=== PATIENT | male | born 1990 ===

== ENCOUNTER 2025-10-27 08:47 | Emergency (ER) | payer BC, SELFPAY ==
--- NOTE | ~2025-10-27 | XR_ITS ---
EXAMINATION: XR CHEST CLINICAL INFORMATION: left sided chest pain COMPARISON: None available. TECHNIQUE: 2 views of the chest were obtained. FINDINGS: No focal lung consolidation or evidence of pulmonary edema. No pneumothorax or pleural effusion. Cardiomediastinal silhouette is within normal limits. Surgical screws project over the right glenoid. XR/XR chest 2V IMPRESSION: No acute cardiopulmonary process. Electronically signed by: Felisa Ha MD 10/27/2025 01:03 PM ARSLAN
[2025-10-27 08:58] VITALS: BP 119/83; PULSE 74; RESP 20; TEMP 36.4; O2SAT 99; BMI 22.5
[2025-10-27 11:35] VITALS: BP 143/93; PULSE 85; RESP 20; TEMP 36.9; O2SAT 98
--- NOTE | 2025-10-27 11:35 | ECG_ITS ---
Test Reason : left upper adominal pain Blood Pressure : */* mmHG Vent. Rate : 67 BPM Atrial Rate : 67 BPM P-R Int : 164 ms QRS Dur : 88 ms QT Int : 376 ms P-R-T Axes : 33 48 51 degrees QTcB Int : 397 ms Normal sinus rhythm Normal ECG No previous ECGs available Referred By: Shayan Santiago Electronically Signed By: PRISCILLA PATE
--- NOTE | 2025-10-27 11:38 | PC.NURSE ---
pt is refusing the motrin at this time
--- NOTE | 2025-10-27 11:38 | ED.GENADULT ---
[facility] - General Adult General Chief complaint: Abdominal Pain Stated complaint: upper l sided abd pain lip numbness Time Seen by Provider: 10/27/25 13:25 Source: patient Mode of arrival: ambulatory Limitations: no limitations History of Present Illness ED Provider: [facility] narrative: 35-year-old presenting with right-sided ribcage pain, reported nausea, increased gas and had episodes of vomiting, PCP started on amoxicillin as he has had respiratory infection, Related Data Previous Rx's ?Medication ?Instructions ?Recorded lidocaine 4 % topical patch 1 patch topical DAILY PRN pain 7 10/27/25 (Aspercreme (lidocaine)) days #10 ea naproxen 500 mg tablet 500 mg PO BID 5 days #10 tabs 10/27/25 Allergies Allergy/AdvReac Type Severity Reaction Status Date / Time methocarbamol (From Robaxin) Allergy Anaphylaxis Verified 10/27/25 09:01 Review of Systems Constitutional: Constitutional: Reports as per [facility] Social History Social History Advance Directives: No Advance Directives Information Provided: Yes Do you have a plan to hurt others: No Plan Physical Exam ED Exam Exam: ?General: ??Age-appropriate somewhat anxious affect Speaking full sentences ?CV: S1-S2 ?Resp: ?No wheezing rales rhonchi no stridor moving air well, reported significant pinpoint tenderness along left-sided ribcage around ribs 7 and 8 Abd: ?Bowel sounds are present, no tenderness no rebound no rigidity MSK: FROM, strength 5/5 all extremities Skin: Warm, dry, intact, no rashes ?Neuro: ?Alert and oriented x3, moving upper and lower extremities symmetrically, no obvious facial asymmetry noted, cranial nerves 2-12 intact Vital Signs: Vital Signs - 24 hr 10/27/25 11:35 10/27/25 13:13 10/27/25 14:38 Temperature 98.5 F 97.8 F 97.8 F Pulse Rate 85 78 78 Respiratory Rate 20 18 Blood Pressure 143/93 H 154/106 H 154/106 H Pulse Oximetry 98 100 100 Oxygen Delivery Method Room Air Room Air Room Air BMI result Body Mass Index 22.5 Course Course Course Narrative: RME: 35-year-old male presents to ED for left-sided abdominal pain, chest pain, and diarrhea since yesterday. Patient presently has been on amoxicillin for respiratory symptoms. Patient states the side upper abdominal pain chest pain worse on movement. Labs EKG ordered Medications Administered Discontinued Medications Generic Name Dose Route Start Last Admin Trade Name Ama PRN Reason Stop Dose Admin Ibuprofen 800 mg 10/27/25 11:36 10/27/25 13:57 Ibuprofen 800 Mg Tablet PO 10/27/25 11:37 Not Given ONCE ONE Ketorolac Tromethamine 15 mg 10/27/25 13:41 10/27/25 13:56 Ketorolac Tromethamine 15 Mg/Ml Vial IM 10/27/25 13:42 15 mg ONCE ONE Administration Lidocaine 1 patch 10/27/25 13:41 10/27/25 13:56 Lidocaine 4 % Patch Adh..Patch TRANSDERMA 10/27/25 13:42 1 patch ONCE ONE Administration Protocol Medical Decision Making Medical Decision Making MDM Narrative: 2:33 PM 10/27/2025 (Dr. Oneil Hinkle): Well-appearing, endorsing pain over the left-sided ribcage directly pinpoint over the bone, a chest x-ray without fractures there was no evidence for pneumothorax or consolidations, patient is obviously having some reaction to antibiotics, and I recommended he discontinue antibiotics chest x-ray without pneumonia, viral swab negative, and blood work reassuring See my discharge instructions, PERC negative Nothing on exam to suspect appendicitis did not feel further imaging such as CT abdomen and pelvis is indicated Differential Diagnosis Differential Diagnoses: The differential diagnosis associated with the presentation includes (Dehydration, medication reaction, antibiotics, PE, pneumonia, rib fracture) Admission/Observation Consideration of admission/observation: Escalation of care including admission/observation considered Lab Data 10/27/25 12:13 10/27/25 12:13 Labs: Lab Results 10/27/25 Range/Units 12:13 WBC 5.9 (4.8-10.8) X10*3/uL RBC 4.37 L (4.60-5.80) X10*6/uL Hgb 13.3 L (14.0-18.0) g/dl Hct 39.3 L (42.0-52.0) % MCV 89.9 (80.0-98.0) fL MCH 30.4 (27.0-33.0) pg MCHC 33.8 (31.0-36.0) g/dl RDW 12.2 (11.0-16.0) % Plt Count 293 (160-400) X10*3/uL MPV 9.5 (9.4-12.4) fL Immature Gran % (Auto) 0.3 (0.0-0.4) % Neut % (Auto) 74.2 H (45-73) % Lymph % (Auto) 17.6 L (20-40) % [place] % (Auto) 6.4 (2-11) % Eos % (Auto) 1.0 (0-4) % Baso % (Auto) 0.5 (0-2) % Lymph # (Auto) 1.0 L (1.2-4.9) X10*3/uL [place] # (Auto) 0.4 (0.1-1.2) X10*3/uL Eos # (Auto) 0.1 (0.0-0.4) X10*3/uL Baso # (Auto) 0.0 (0.0-0.2) X10*3/uL Abs Immat Gran (auto) 0.02 (0.00-0.03) X10*3/uL Absolute Neuts (auto) 4.4 (2.0-8.3) x10*3/uL Absolute Nucleated RBC 0.000 (0.0-0.012) X10*3/uL Nucleated RBC % (auto) 0.0 (0.0-0.2) /100WBC PT 12.0 (11.2-13.5) SEC INR 1.0 (0.9-1.1) APTT 29.1 (26.7-34.1) SEC Sodium 139 (135-145) mmol/L Potassium 3.9 (3.3-5.1) mmol/L Chloride 107 (96-108) mmol/L Carbon Dioxide 27 (22-29) mmol/L Anion Gap 9 L (12-20) BUN 14 (9-16) mg/dL Creatinine 0.79 (0.5-1.4) mg/dL Estim Creat Clear Calc 99.8 Estimated GFR > 60 Random Glucose 94 (60-115) mg/dL Calcium 9.8 (8.4-10.2) mg/dL Total Bilirubin 0.4 (0.0-1.0) mg/dL AST 30 (5-37) U/L ALT 37 (0-40) U/L Alkaline Phosphatase 71 (39-117) U/L Troponin I High Sens < 2.7 (<3.5-35.0) ng/L NT-Pro-B Natriuret Pep < 15.8 (<300) pg/mL Total Protein 7.7 (6.5-8.0) g/dL Albumin 4.9 (3.5-5.0) g/dL Lipase 20 (8-78) U/L Urine Color Yellow Urine Appearance Clear Urine pH 7.0 (5.0-9.0) Ur Specific [place] 1.020 (1.005-1.025) Urine Protein Negative (Neg-Trace) mg/dL Urine Glucose (UA) Negative (Negative) mg/dL Urine Ketones Negative (Negative) mg/dL Urine Blood Negative (Negative) Urine Nitrite Negative (Negative) Ur Leukocyte Esterase Negative (Negative) Influenza Type A (PCR) NEGATIVE (Negative) Influenza Type B (PCR) NEGATIVE (Negative) RSV RNA Qual (PCR) NEGATIVE (Negative) SARS-CoV-2 RNA (RT-PCR) NEGATIVE (Negative) S. pyogenes GrpA TITO Negative (Negative) Tests considered The following testing was considered but not selected: CT abdomen and pelvis with IV contrast Discharge Plan Discharge Clinical Impression: Left-sided chest wall pain, Adverse reaction to antibiotic Patient Disposition: Home, Self-Care Additional Instructions: Your blood work is reassuring Chest x-ray without infection Viral swabs that we perform here negative Pain over the left-sided ribcage is either inter rib spasm or maybe even a rib fracture if you are coughing or vomiting that can happen, treatment is with ibuprofen or Naprosyn which I am prescribing, take it with food and also recommend that you discontinue amoxicillin as you are having significant reactions to it Your chest x-ray did not show an infection in your blood work did not reveal underlying infectious etiology follow up with the PCP otherwise any other issues concerns come back to the ER Prescriptions: New lidocaine [Aspercreme (lidocaine)] 4 % adhesive patch,medicated 1 patch topical DAILY PRN (Reason: pain) 7 Days Qty: 10 0RF naproxen 500 mg tablet 500 mg PO BID 5 Days Qty: 10 0RF Stand Alone Forms: Work/School Release Interventions: ED Discharge Assessment Last Done: 10/27/25 14:38 Discharge Date/Time: 10/27/25 14:38 Print Language: [place] Citizen
[2025-10-27 12:21] LABS: MANUAL DIFF FLAG NO
[2025-10-27 12:25] LABS: Appearance Urine Clear; Glucose Urine UA Negative (Negative); Hematocrit 39.3 % (42.0-52.0); Hemoglobin 13.3 g/dl (14.0-18.0); Imm Gran Abs Auto 0.02 X10*3/uL (0.00-0.03); Imm Gran Pct Auto 0.3 % (0.0-0.4); Lymphocytes Absolute Auto 1.0 X10*3/uL (1.2-4.9); Mean Corpuscular HGB Conc 33.8 g/dl (31.0-36.0); Mean Corpuscular Hemoglobin 30.4 pg (27.0-33.0); Mean Corpuscular Volume 89.9 fL (80.0-98.0); NRBC Abs Auto 0.000 X10*3/uL (0.0-0.012); NRBC Pct Auto 0.0 /100WBC (0.0-0.2); PH 7.0 (5.0-9.0); Platelet Count 293 X10*3/uL (160-400); Red Blood Count 4.37 X10*6/uL (4.60-5.80); Specific Gravity - Urine 1.020 (1.005-1.025); White Blood Count 5.9 X10*3/uL (4.8-10.8)
[2025-10-27 12:32] LABS: INTERNATIONAL NORM RATIO 1.0 (0.9-1.1); Prothrombin Time 12.0 SEC (11.2-13.5)
[2025-10-27 12:33] LABS: IDNOW Serial# 58CA691E
[2025-10-27 12:34] LABS: Strep A Nucleic Acid Negative (Negative)
[2025-10-27 12:35] LABS: Partial Thromboplastin Time 29.1 SEC (26.7-34.1)
[2025-10-27 12:36] LABS: Lipase 20 U/L (8-78)
[2025-10-27 12:39] LABS: Alanine Aminotransferase 37 U/L (0-40); Albumin Level 4.9 g/dL (3.5-5.0); Alkaline Phosphatase 71 U/L (39-117); Anion Gap 9 (12-20); Aspartate Amino Transferase 30 U/L (5-37); Blood Urea Nitrogen 14 mg/dL (9-16); Calcium 9.8 mg/dL (8.4-10.2); Carbon Dioxide 27 mmol/L (22-29); Chloride 107 mmol/L (96-108); Creatinine Clr Calc Pharmacy 99.8; Estimated Glomerular Filt Rate > 60; Potassium 3.9 mmol/L (3.3-5.1); Sodium 139 mmol/L (135-145); Total Protein 7.7 g/dL (6.5-8.0)
[2025-10-27 12:47] LABS: NT Pro B Type Natriuretic Pept < 15.8 pg/mL (<300); Troponin-I High Sensitivity < 2.7 ng/L (<3.5-35.0)
[2025-10-27 13:00] LABS: Resp Syncy Virus RNA Qual PCR NEGATIVE (Negative); SARS COV2 PCR INHOUSE NEGATIVE (Negative)
[2025-10-27 13:13] VITALS: BP 154/106; PULSE 78; TEMP 36.6; O2SAT 100
[2025-10-27] MEDS: Lidocaine 4 % Patch ADH..PATCH 1 PATCH TRANSDERMA (13:56)
[2025-10-27 14:38] VITALS: BP 154/106; PULSE 78; RESP 18; TEMP 36.6; O2SAT 100
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
--- OUTSIDE RECORDS SUMMARY | 2025-10-27 16:06 | XMS_ITS | Continuity of Care Document ---
Author Organization [place] - [facility] Address [address] [place] [address] Care Team Providers Care Inspector Salvage Name Role Phone SABRA MEYER Primary Care Provider MAT ERVIN Utility Sales Representative AMY LYNNE([facility]) Utility Sales Representative Assessment No assessment recorded. Plan of Treatment Reminders Order Date Submit Date Provider Last Modified By Organization Details Last Modified Time Details Appointments RECHECK 15 2025 03:30P M Vandana Padgett MD Not available Not available Not available Lab None recorded. Referral None recorded. Procedures None recorded. Surgeries None recorded. Imaging XR, shoulder, 2 or more view - rm 5 right shoulder 4v 2024 [facility], [address], [address], [place], [address], 10/26/2025 14:10:04 Medication Orders None recorded. Patient TargetsNo targets recorded. Patient Instructions Encounter Date Encounter Id Patient Instructions Last Modified By Organization Details Last Modified Time 10/15/2025 [id number] Will have Tim continue with work conditioning, which seems to [...] we have yet reached it. Will assess further at next follow-up visit in 2 months. No new xrays needed at that time. [email or web address] Not available 10/15/2025 16:20:28 Reason for Referral None Reported. Results Created Date Observation Date Name Description Value Unit Range Abnormal Flag Note LastModifiedBy Organization Detail LastModifiedTime 10/15/2010/15/2025 XR, shoul ravindra, 2 or more view http:/ [email or web address] ?Encry pted=s hAaTro YD8dLq bEUv6g %2BXZw aYqtaq 0bqfl% 2Fg9IQ a4ajBk vP9nXo QUaueC m3YtLR FvZlgJ JJ8mAn HZtai3 5u5733 AC0KlY 3qBVaW vKiQtr MwF INTERFACE [facility] [address] [facility] [address], [place], [address], 10/15/2025 14:34:15 10/15/20 25 10/15/2025 XR, shoul ravindra, 2 or more view http:/ [email or web address] ?Encry pted=s hAaTro YD8dLq bEUv6g %2BXZw aYqtaq 0bqfl% 2Fg9IQ a4ajBk vP9nXo QUaueC m3YtLR FvZlgJ JJ8mAn HZtai3 0a7609 AC0KlY 3qBVaW vKiQtr MwF INTERFACE [facility] [address] [facility] [address], [place], [address], 10/15/2025 14:34:17 Result Notes Documentation Provider Name and Address Organization Details Recorded Time Xr, Shoulder, 2 Or More View : [email or web address]? Encrypted=kaClTzrZJ8sCciU Uv6g%2RHThiRjmre0yxnv%2Fg 0BJf8qbOizB8jKuIWnllUv6Xo MDSlDonYMI5jPhCAqvd97h166 8IA4BhD9pNIhVgQdCmbLtR Not Available [facility] 10/15/2025 14:34: 16 Xr, Shoulder, 2 Or More View : [email or web address]? Encrypted=duYsOfsXI8nUspV Uv6g%6HKGzoAjpan7ytws%2Fg 1XTv6mwDcyN1oEeWQptcZf3Dt ZGXqYhpHKO4pAaKRhze22d939 3ZI9JrC4nHZdJiScPouUrL Not Available [facility] 10/15/2025 14:34: 18 Problems Name Problem SNOMED Code Status Onset Date Resolution Date Notes Provider Name and Address Organization Details Recorded Time Instability of right shoulder joint 609920906 Active 2023 James Whitfield PA-C [address], [place], [address], [facility] 4 06:51:09 Pain of right shoulder joint 8270856860340 9100 Active 2023 MORRIS PIRES [place], [place] - [facility] 4 09:54:39 Chronic pain of right upper limb 3002967821605 9108 Active 2023 James Whitfield PA-C [address], [place], [address], [facility] 4 11:12:47 Pain of left shoulder joint 2246449050201 9109 Active 2023 James Whitfield PA-C [address], [place], [address], [facility] 4 11:32:24 Pain of left shoulder region Active 2023 James Whitfield PA-C [address], [place], [address], [facility] 4 10:48:08 Neck pain 12690075 Active 2023 Mitch San MD [address], [place], [address], [facility] 5 10:59:05 Sprain of left acromioclav icular ligament 5750498064113 9103 Active 2023 James Whitfield PA-C [address], [place], [address], [facility] 4 11:19:57 Cervical spondylosis 852339922 Active 2024 Mitch San MD [address], [place], [address], [facility] 5 16:34:54 Strain of neck muscle 643709792 Active 2024 Mitch San MD [address], [place], [address], [facility] 5 16:34:56 Problem Notes None recorded. Procedures Surgical History Date Name Laterality Status Provider Name and Address Organization Details Recorded Time 5 90272 Therapeutic Exercise (1:1) completed Danuta Duran PTA [address], [place], [address], [facility] 01/06/2025 13:44:44 5 57608: Manual therapy completed MARIO [address], [place], [address], [facility] 01/06/2025 13:44:44 5 99565 Therapeutic Exercise (1:1) completed Danuta Duran PTA [address], [place], [address], [facility] 01/01/2025 07:13:25 5 91422: Manual therapy completed Danuta Duran, SURGICAL GARMENT ASSEMBLY SUPERVISOR [address], [place], [address], [facility] 01/01/2025 07:13:25 5 50402 Therapeutic Exercise (1:1) completed Danuta Duran, SURGICAL GARMENT ASSEMBLY SUPERVISOR [address], [place], [address], [facility] 12/30/2024 11:02:27 5 59627: Manual therapy completed Danuta Duran SURGICAL GARMENT ASSEMBLY SUPERVISOR [address], [place], [address], [facility] 12/30/2024 11:02:27 5 46354 Therapeutic Exercise (1:1) cancelled Danuta Duran SURGICAL GARMENT ASSEMBLY SUPERVISOR [address], [place], [address], [facility] 12/28/2024 06:41:48 5 77450: Manual therapy cancelled Dantua Duran PTA [address], [place], [address], [facility] 12/28/2024 06:41:48 5 77070 Therapeutic Exercise (1:1) cancelled Michael Thurston, PT [address], [place], [address], [facility] 12/24/2024 06:51:08 5 55143: Manual therapy cancelled Michael Thurston, PT [address], [place], [address], [facility] 12/24/2024 06:51:08 5 78358 Therapeutic Exercise (1:1) completed Michael Thurstno, PT [address], [place], [address], [facility] 12/22/2024 12:29:47 5 06469: Manual therapy completed Michael Florek, PT [address], [place], [address], [facility] 12/22/2024 12:29:56 5 89246 Therapeutic Exercise (1:1) cancelled Michael Glendyek, PT [address], [place], [address], [facility] 12/16/2024 17:30:22 5 19063: Low complexity PT Eval cancelled Michael Glendyek, PT [address], [place], [address], [facility] 12/16/2024 17:30:22 5 28168 Therapeutic Exercise (1:1) completed Michaelmor Thurston, PT [address], [place], [address], [facility] 12/02/2024 13:25:08 5 31117: Low complexity PT Eval completed Michaelmor Pikeek, PT [address], [place], [address], [facility] 12/02/2024 13:25:08 5 23166 Therapeutic Exercise (1:1) cancelled Michaelmor Thurston, PT [address], [place], [address], [facility] 12/02/2024 05:35:53 5 80991: Hot or Cold Pack cancelled Michaelmor Pikeek, PT [address], [place], [address], [facility] 12/02/2024 05:35:53 5 19500: Manual therapy cancelled Michaelmor Pikeek, PT [address], [place], [address], [facility] 12/02/2024 05:35:53 4 80597 Therapeutic Exercise (1:1) cancelled Michael Florek, PT [address], [place], [address], [facility] 09/22/2024 06:41:31 4 95429: Hot or Cold Pack cancelled Michaelmor Thurston, PT [address], [place], [address], [facility] 09/22/2024 06:41:31 4 19833: Manual therapy cancelled Michael Thurston, PT [address], [place], [address], [facility] 09/22/2024 06:41:31 4 23142 Therapeutic Exercise (1:1) cancelled Michael Thurston, PT [address], [place], [address], [facility] 09/14/2024 12:23:31 4 53802: Hot or Cold Pack cancelled Michael Thurston, PT [address], [place], [address], [facility] 09/14/2024 12:23:31 57310: Manual therapy cancelled Michael Thurston, PT [address], [place], [address], [facility] 09/14/2024 12:23:31 4 56224 Therapeutic Exercise (1:1) cancelled Danuta Roger, SURGICAL GARMENT ASSEMBLY SUPERVISOR [address], [place], [address], [facility] 09/08/2024 17:28:34 4 26010: Hot or Cold Pack cancelled Danuta Roger, SURGICAL GARMENT ASSEMBLY SUPERVISOR [address], [place], [address], [facility] 09/08/2024 17:28:34 4 36742: Manual therapy cancelled Danuta Duran, SURGICAL GARMENT ASSEMBLY SUPERVISOR [address], [place], [address], [facility] 09/08/2024 17:28:34 4 71232 Therapeutic Exercise (1:1) completed Danuta Duran, SURGICAL GARMENT ASSEMBLY SUPERVISOR [address], [place], [address], [facility] 09/01/2024 14:05:39 64492: Hot or Cold Pack completed Danuta Duran SURGICAL GARMENT ASSEMBLY SUPERVISOR [address], [place], [address], [facility] 09/01/2024 14:05:39 55634: Manual therapy completed Danuta Duran SURGICAL GARMENT ASSEMBLY SUPERVISOR [address], [place], [address], [facility] 09/01/2024 14:05:39 14863 Therapeutic Exercise (1:1) completed Danuta Duran SURGICAL GARMENT ASSEMBLY SUPERVISOR [address], [place], [address], [facility] 08/31/2024 08:08:26 80873: Hot or Cold Pack completed Danuta Duran SURGICAL GARMENT ASSEMBLY SUPERVISOR [address], [place], [address], [facility] 08/31/2024 08:08:26 79589: Manual therapy completed Danuta Duran SURGICAL GARMENT ASSEMBLY SUPERVISOR [address], [place], [address], [facility] 08/31/2024 08:08:26 87253 Therapeutic Exercise (1:1) completed Danuta Duran, SURGICAL GARMENT ASSEMBLY SUPERVISOR [address], [place], [address], [facility] 08/28/2024 07:12:27 16694: Hot or Cold Pack completed Danuta Duran, SURGICAL GARMENT ASSEMBLY SUPERVISOR [address], [place], [address], [facility] 08/28/2024 07:12:27 4 80416: Manual therapy completed Danuta Duran PTA [address], [place], [address], [facility] 08/28/2024 07:12:27 4 63125 Therapeutic Exercise (1:1) completed Danuta Duran PTA [address], [place], [address], [facility] 08/24/2024 15:15:24 4 20107: Hot or Cold Pack completed Danuta Duran PTA [address], [place], [address], [facility] 08/24/2024 15:15:24 4 05148: Manual therapy completed Danuta DuranMARIO chaudhry [address], [place], [address], [facility] 08/24/2024 15:15:24 4 16729 Therapeutic Exercise (1:1) completed Danuta DuranMARIO [address], [place], [address], [facility] 08/17/2024 06:50:55 4 23272: Hot or Cold Pack completed Danuta Duran PTA [address], [place], [address], [facility] 08/17/2024 06:50:55 4 94476: Manual therapy completed Danuta DuranMARIO [address], [place], [address], [facility] 08/17/2024 06:50:55 4 93673 Therapeutic Exercise (1:1) cancelled Danuta DuranMARIO [address], [place], [address], [facility] 08/11/2024 15:24:58 4 73735: Hot or Cold Pack cancelled Danuta Duran SURGICAL GARMENT ASSEMBLY SUPERVISOR [address], [place], [address], [facility] 08/11/2024 15:24:58 4 80810: Manual therapy cancelled Danuta Duran SURGICAL GARMENT ASSEMBLY SUPERVISOR [address], [place], [address], [facility] 08/11/2024 15:24:58 4 33080 Therapeutic Exercise (1:1) cancelled Danuta Duran SURGICAL GARMENT ASSEMBLY SUPERVISOR [address], [place], [address], [facility] 08/09/2024 10:41:48 4 85145: Hot or Cold Pack cancelled Danuta Duran, SURGICAL GARMENT ASSEMBLY SUPERVISOR [address], [place], [address], [facility] 08/09/2024 10:41:48 4 79746: Manual therapy cancelled Danuta Duran SURGICAL GARMENT ASSEMBLY SUPERVISOR [address], [place], [address], [facility] 08/09/2024 10:41:48 4 55883 Therapeutic Exercise (1:1) completed Danuta Duran PTA [address], [place], [address], [facility] 08/06/2024 16:26:53 4 73134: Hot or Cold Pack completed Danuta MARIO Duran [address], [place], [address], [facility] 08/06/2024 16:26:53 4 03424: Manual therapy completed Danuta Duran SURGICAL GARMENT ASSEMBLY SUPERVISOR [address], [place], [address], [facility] 08/06/2024 16:26:53 4 37230 Therapeutic Exercise (1:1) completed Danuta Duran SURGICAL GARMENT ASSEMBLY SUPERVISOR [address], [place], [address], [facility] 08/04/2024 14:07:25 4 04024: Hot or Cold Pack completed Danuta Gardunoer, SURGICAL GARMENT ASSEMBLY SUPERVISOR [address], [place], [address], [facility] 08/04/2024 14:07:25 4 32840: Manual therapy completed Danuta Duran, SURGICAL GARMENT ASSEMBLY SUPERVISOR [address], [place], [address], [facility] 08/04/2024 14:07:25 4 21912 Therapeutic Exercise (1:1) cancelled Danuta Duran, SURGICAL GARMENT ASSEMBLY SUPERVISOR [address], [place], [address], [facility] 07/31/2024 16:29:11 4 66267: Hot or Cold Pack cancelled Danuta Duran, SURGICAL GARMENT ASSEMBLY SUPERVISOR [address], [place], [address], [facility] 07/31/2024 16:29:11 4 91454: Manual therapy cancelled Danuta Duran, SURGICAL GARMENT ASSEMBLY SUPERVISOR [address], [place], [address], [facility] 07/31/2024 16:29:11 4 71281 Therapeutic Exercise (1:1) completed Danuta Gardunoer, SURGICAL GARMENT ASSEMBLY SUPERVISOR [address], [place], [address], [facility] 07/29/2024 12:20:26 4 51921: Hot or Cold Pack completed Danuta Duran, SURGICAL GARMENT ASSEMBLY SUPERVISOR [address], [place], [address], [facility] 07/29/2024 12:20:26 4 99308: Manual therapy completed Danuta Duran, SURGICAL GARMENT ASSEMBLY SUPERVISOR [address], [place], [address], [facility] 07/29/2024 12:20:26 4 92274 Therapeutic Exercise (1:1) completed Danuta Duran, SURGICAL GARMENT ASSEMBLY SUPERVISOR [address], [place], [address], [facility] 07/24/2024 21:21:57 4 15508: Hot or Cold Pack completed Danuta Duran PTA [address], [place], [address], [facility] 07/24/2024 21:21:57 4 69268: Manual therapy completed Danuta Duran PTA [address], [place], [address], [facility] 07/24/2024 21:21:57 4 87355 Therapeutic Exercise (1:1) completed Danuta Duran PTA [address], [place], [address], [facility] 07/21/2024 15:20:38 4 36495: Hot or Cold Pack completed Danuta Duran PTA [address], [place], [address], [facility] 07/21/2024 15:20:38 4 00585: Manual therapy completed Danuta Duran PTA [address], [place], [address], [facility] 07/21/2024 15:20:38 17784 Therapeutic Exercise (1:1) completed Danuta Duran PTA [address], [place], [address], [facility] 07/18/2024 15:45:22 4 41892: Hot or Cold Pack completed Danuta Duran PTA [address], [place], [address], [facility] 07/18/2024 15:45:22 4 70043: Manual therapy completed Danuta Duran PTA [address], [place], [address], [facility] 07/18/2024 15:45:22 4 05143 Therapeutic Exercise (1:1) completed Danuta Duran, SURGICAL GARMENT ASSEMBLY SUPERVISOR [address], [place], [address], [facility] 07/13/2024 15:17:27 4 94109: Hot or Cold Pack completed Danuta Duran, SURGICAL GARMENT ASSEMBLY SUPERVISOR [address], [place], [address], [facility] 07/13/2024 15:17:27 4 65133: Manual therapy completed Danuta Duran, SURGICAL GARMENT ASSEMBLY SUPERVISOR [address], [place], [address], [facility] 07/13/2024 15:17:27 4 62863 Therapeutic Exercise (1:1) cancelled Michael Thurston, PT [address], [place], [address], [facility] 07/16/2024 06:56:14 4 03353: Hot or Cold Pack cancelled Michael Thurston, PT [address], [place], [address], [facility] 07/16/2024 06:56:14 4 97709: Manual therapy cancelled Michael Thurston, PT [address], [place], [address], [facility] 07/16/2024 06:56:14 4 94008 Therapeutic Exercise (1:1) completed Danuta Duran, SURGICAL GARMENT ASSEMBLY SUPERVISOR [address], [place], [address], [facility] 07/08/2024 12:48:52 4 06175: Hot or Cold Pack completed Danuta Duran, SURGICAL GARMENT ASSEMBLY SUPERVISOR [address], [place], [address], [facility] 07/07/2024 16:05:32 4 50229: Manual therapy completed Danuta Duran, SURGICAL GARMENT ASSEMBLY SUPERVISOR [address], [place], [address], [facility] 07/07/2024 16:05:32 4 59579 Therapeutic Exercise (1:1) completed Danuta Duran PTA [address], [place], [address], [facility] 07/03/2024 12:00:20 4 26944: Hot or Cold Pack completed Danuta Duran SURGICAL GARMENT ASSEMBLY SUPERVISOR [address], [place], [address], [facility] 07/03/2024 12:00:20 4 89444: Manual therapy completed Danuta Duran PTA [address], [place], [address], [facility] 07/03/2024 12:00:20 4 27179 Therapeutic Exercise (1:1) completed Danuta Duran PTA [address], [place], [address], [facility] 06/30/2024 17:33:45 4 53859: Hot or Cold Pack completed Danuta Duran PTA [address], [place], [address], [facility] 06/30/2024 17:33:45 4 19725: Manual therapy completed Danuta Duran PTA [address], [place], [address], [facility] 06/30/2024 17:33:45 4 87020 Therapeutic Exercise (1:1) completed Danuta Duran SURGICAL GARMENT ASSEMBLY SUPERVISOR [address], [place], [address], [facility] 06/28/2024 18:37:48 4 83798: Hot or Cold Pack completed Danuta Duran SURGICAL GARMENT ASSEMBLY SUPERVISOR [address], [place], [address], [facility] 06/28/2024 18:37:48 4 62056: Manual therapy completed Danuta Duran PTA [address], [place], [address], [facility] 06/28/2024 18:37:48 4 42899 Therapeutic Exercise (1:1) completed Danuta Duran PTA [address], [place], [address], [facility] 06/24/2024 14:43:05 4 95001: Hot or Cold Pack completed Danuta Duran PTA [address], [place], [address], [facility] 06/24/2024 14:43:05 4 57940: Manual therapy completed Danuta Duran PTA [address], [place], [address], [facility] 06/24/2024 14:43:05 4 24451 Therapeutic Exercise (1:1) completed Michael Thurston PT [address], [place], [address], [facility] 06/23/2024 05:24:29 4 22067: Hot or Cold Pack completed Michael Thurston PT [address], [place], [address], [facility] 06/23/2024 05:22:26 4 71763: Manual therapy completed Michael Thurston PT [address], [place], [address], [facility] 06/23/2024 05:24:26 4 03298 Therapeutic Exercise (1:1) completed Danuta Duran PTA [address], [place], [address], [facility] 06/17/2024 12:59:58 4 21800: Hot or Cold Pack completed Danuta Duran, SURGICAL GARMENT ASSEMBLY SUPERVISOR [address], [place], [address], [facility] 06/17/2024 12:59:58 4 25704: Manual therapy completed Danuta Duran, SURGICAL GARMENT ASSEMBLY SUPERVISOR [address], [place], [address], [facility] 06/17/2024 12:59:58 4 86491 Therapeutic Exercise (1:1) completed Danuta Duran, SURGICAL GARMENT ASSEMBLY SUPERVISOR [address], [place], [address], [facility] 06/15/2024 15:18:55 4 42827: Hot or Cold Pack completed Danuta Duran, SURGICAL GARMENT ASSEMBLY SUPERVISOR [address], [place], [address], [facility] 06/15/2024 15:18:55 4 01578: Manual therapy completed Danuta Duran, SURGICAL GARMENT ASSEMBLY SUPERVISOR [address], [place], [address], [facility] 06/15/2024 15:18:55 4 03316 Therapeutic Exercise (1:1) completed Michael Thurston, PT [address], [place], [address], [facility] 06/11/2024 08:35:04 4 46153: Hot or Cold Pack completed Michael Thurston, PT [address], [place], [address], [facility] 06/11/2024 08:35:04 4 56171: Manual therapy completed Michael Thurston, PT [address], [place], [address], [facility] [facility] 06/11/2024 08:35:04 4 17103 Therapeutic Exercise (1:1) completed Michael Thurston, PT [address], [place], [address], [facility] 06/08/2024 06:41:08 4 99220: Hot or Cold Pack completed Michael Glendyek, PT [address], [place], [address], [facility] 06/08/2024 06:41:08 4 83977: Manual therapy completed Michaelmor Pikeek, PT [address], [place], [address], [facility] 06/08/2024 06:41:08 4 24410 Therapeutic Exercise (1:1) cancelled Michael Glendyek, PT [address], [place], [address], [facility] 06/03/2024 07:05:05 4 36241: Hot or Cold Pack cancelled Michael Glendyek, PT [address], [place], [address], [facility] 06/03/2024 07:05:05 4 94481: Manual therapy cancelled Michaelmor Pikeek, PT [address], [place], [address], [facility] 06/03/2024 07:05:05 4 35572 Therapeutic Exercise (1:1) completed Michaelmor Thurston, PT [address], [place], [address], [facility] 06/01/2024 08:17:00 4 71272: Hot or Cold Pack completed Michael Glendyek, PT [address], [place], [address], [facility] 06/01/2024 08:17:00 4 72299: Manual therapy completed Michaelmor Thurston, PT [address], [place], [address], [facility] 06/02/2024 06:13:36 4 72204 Therapeutic Exercise (1:1) completed Danuta Duran SURGICAL GARMENT ASSEMBLY SUPERVISOR [address], [place], [address], [facility] 05/26/2024 13:25:19 4 11662: Hot or Cold Pack completed Danuta Duran SURGICAL GARMENT ASSEMBLY SUPERVISOR [address], [place], [address], [facility] 05/26/2024 13:25:13 4 64897: Manual therapy completed Danuta Duran SURGICAL GARMENT ASSEMBLY SUPERVISOR [address], [place], [address], [facility] 05/26/2024 13:25:21 4 77743 Therapeutic Exercise (1:1) completed Michael Thurston, PT [address], [place], [address], [facility] 05/15/2024 14:11:41 4 20344: Low complexity PT Eval completed Michael Thurston, PT [address], [place], [address], [facility] 05/15/2024 14:11:47 4 Shoulder Surgery completed HANNAH MA [facility] 02/18/2025 08:28:24 4 14703 Therapeutic Exercise (1:1) completed LILIANA TobarT [address], [place], [address], [facility] 02/11/2024 10:54:58 4 75495: Manual therapy completed LILIANA TobarT [address], [place], [address], [facility] 02/11/2024 10:57:19 Ankle/Foot Surgery completed ROSALIA HERR [facility] 04/17/2024 13:42:05 Other completed ROSALIA HERR [facility] 04/17/2024 13:42:05 Imaging Results None recorded. Procedure Notes None recorded. Medical Equipment None Reported. Allergies Allergen ID Allergen Name Allergen Category Reaction Reaction Severity Criticality Documentation Date Start Date Code Code System Note Provider Name and Address Organization Details Recorded Time 741170 methocarb martín medicatio n Not available Not available Not available 10/15/2025 6845 RxNorm Not Available [facility] [employer] - prod 5 04:23:24 105790 morphine medicatio n Not available Not available low 10/15/2025 7052 RxNorm Not Available [facility] [employer] - prod 5 04:23:24 208055 Robaxin medicatio n Not available Not available Not available 10/15/2025 45112 5 RxNorm Not Available [facility] [employer] [facility] 5 04:24:09 852590 amoxicill in medicatio n Not available Not available Not available 10/15/20252018 723 RxNorm Dizzy , nause a, vomit Not Available [facility] [employer] - prod 5 04:24:10 974694 gabapenti n medicatio n Not available Not available Not available 10/15/20252017 09389 RxNorm Menta l insta bilit y Not Available [employer] - prod 5 04:24:10 74417 morphine sulfate medicatio n Not available Not available Not available 01/27/20242022 71066 RxNorm Not Available [facility] 4 12:33:19 Medications Name Sig Start Date [...] Available Not Available Not Available amoxicillin 875 mg-potassiu m clavulanate 125 mg tablet TAKE 1 TABLET [...] Updated DateTime 10/15/2025 157.48 cm 22.9 kg/m2 82756.05 g Esvin Grace PA - [facility] 10/15/2025 14:23:47 Social History None recorded. Functional Status None recorded. Mental Status None recorded. Family History Nothing Reported. Medical History Condition Response Allergies/Hayfever N Coronary Artery Disease N Anxiety/Depression N Breathing or lung disorders N Emphysema N Nerve Disorders N Thyroid Problems N COPD N Pacemaker N Anemia N Kidney/Bladder Problems N Vascular Disease N Heart Trouble N Heart Attack ([place]) N Gastrointestinal Disease N Cholesterol N Diabetes [...] ICD10 Code Diagnosis IMO Codes Diagnosis Note [id number] VandanaMD MCKAY [facility] [address] [place] [address] 10/15/2025 14:18:54 10/26/2025 14:10:03 Pain of right shoulder joint [id number] 5816702 M25.511 [id number] Health Concerns Section Related Observation LastModified by Organization Detai ls LastModified Time None Recorded Concern Status LastModified by Organization Details LastModified Time None Recorded Payers Encounter Date Sequence Insurance Name Policy Number Policy Robles Covered Member ID Robles Member ID Guarantor Name 10/15/2025 [employer] Tim Tavares Notes Date Note Type Note Provider Name and Address Organization Details Recorded Time 10/15/2025 text/html Surgery: Right shoulder open coracoid [...] the right shoulder ordered and obtained at [facility] today were reviewed during the visit. [...] CT of the right shoulder performed at [facility] 10/07/2024 independently reviewed by me on OrthoPACS [...] AC joints, acromion, proximal humerus. 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 [employer] [facility] speech recognition immigration investigator software was used to create portions of this document. An attempt at proofreading has been made to minimize errors. Please call for corrections. Vandana Padgett MD [address] [place] [address] [address], [place], [address], [facility] - [facility] 10/15/2025 16:20:56
--- OUTSIDE RECORDS SUMMARY | 2025-10-27 16:06 | XMS_ITS | Clinical Summary ---
Author Organization [facility] Prior to 04/24/25 Address [address] [place] [address] Care Team Providers Care Field Counsel Name Role Phone Vilma Madsen Primary Care Provider Allergies Active Allergy Reactions Criticality Noted Date Comments Amoxicillin 01/08/2019 Dizzy, nausea, vomit Gabapentin 08/25/2018 Mental instability Methocarbamol Anaphylaxis High 07/15/2018 Medications Medication Sig Dispensed Refills Start Date End Date Status omeprazole (PriLOSEC) 40 MG capsule Take 40 mg by mouth daily. 2 02/15/2019 Active Active Problems No known active problems Social History Tobacco Use Types Packs/Day Years Used Date Smoking Tobacco: Former Cigarettes Q uit: 2018 Smokeless Tobacco: Never Alcohol Use Standard Drinks/Week Comments Yes 1 (1 standard drink = 0.6 oz pur e alcohol) Sex and Gender Information Value Date Recorded Sex Assigned at Not on file Gender Identity Not on file Sexual Orientation Not on file Last Filed Vital Signs Vital Sign Reading Time Taken Comments Blood Pressure - - Pulse - - Temperature - - Respiratory Rate - - Oxygen Saturation - - Inhaled Oxygen Concentration - - Weight 47.2 kg (104 lb) 03/02/2019 11:01 AM EDT Height 157.5 cm (5' 2 ) 03/02/2019 11:01 AM EDT Body Mass Index 19.02 03/02/2019 11:01 AM EDT Plan of Treatment Health Maintenance Due Date Last Done Comments Hepatitis B Vaccines (1 of 3 - 3-dose series) 1989 Hepatitis C Screening 1989 COVID-19 Vaccine (#1) 1989 Depression Screening 2001 Preventative Health Evaluation 2007 DTap / Tdap / Td (1 - Tdap) 2008 Influenza Vaccine (#1) 2025 08/25/2018 Pneumococcal Vaccine Aged Out No long er eligible based on patient's age to complete this topic RSV Ped < 20 months Aged Out No longe r eligible based on patient's age to complete this topic Care Teams Field Counsel Relationship Specialty Start Date End Date Vilma Madsen [address] [place] [address] PCP - General Internal Medicine 02/18/19
--- OUTSIDE RECORDS SUMMARY | 2025-10-27 16:06 | XMS_ITS | Encounter Summary ---
Author Organization [facility] Address [address] [place] [address] Phone Care Team Providers Care Blower Blast Furnace Name Role Phone Inna Lutz MD Primary Care Provider [phone] Encounter Details Date Type Department Care Team (Late st Contact Info) Description 01/17/2022 Procedure Pass [facility] Endoscopy Admitting Dept Virtual Department [address] [place] [address] Social History Tobacco Use Types Packs/Day Years Used Date Smoking Tobacco: Never Assessed Sex and Gender Information Value Date Recorded Sex Assigned at Not on file Legal Sex Male 9:07 PM EDT Gender Identity Not on file Sexual Orientation Not on file documented as of this encounter Plan of Treatment Not on file documented as of this encounter Visit Diagnoses Not on filedocumented in this encounter Care Teams Blower Blast Furnace Relationship Specialty Start Date End Date Inna Lutz MD [address] [place] [address] PCP - General Internal Medicine 11/08/21 documented as of this encounter Additional Source Comments The information contained in this document represents components of the legal health record. It is not the complete legal health record.[facility]
--- OUTSIDE RECORDS SUMMARY | 2025-10-27 16:06 | XMS_ITS | Encounter Summary ---
Author Organization [facility] Address [address] [place] [address] Phone Care Team Providers Care Patrol Commander Name Role Phone Inna Lutz MD Primary Care Provider [phone] Encounter Details Date Type Department Care Team (Late st Contact Info) Description 11/09/2021 Transcribe Orders Virtual Department [address] [place] [address] Barb Coleman NP [address] [place] [address] Social History Tobacco Use Types Packs/Day Years [...] on filedocumented in this encounter Care Teams Patrol Commander Relationship Specialty Start Date End Date Inna Lutz MD [address] [place] [address] PCP - General Internal Medicine 11/08/21 documented as of this encounter Additional Source Comments The information contained in this document represents components of the legal health record. It is not the complete legal health record.[facility]
--- OUTSIDE RECORDS SUMMARY | 2025-10-27 16:06 | XMS_ITS | Clinical Summary ---
Author Organization [facility] Address [address] [place], [place] [address] Phone Care Team Providers Care Decorator Mannequin Name Role Phone Inna Lutz MD Primary Care Provider [phone] Social History Tobacco Use Types Packs/Day Years Used Date Smoking Tobacco: Never Assessed Education Answer Date Recorded Are you interested in more education? Not on luci e 03/22/2023 Are you concerned about learning? Not on file 03/22/2023 No 03/22/2023 No 03/22/2023 Digital Access Answer Date Recorded No 04/22/2023 No 04/22/2023 No 04/22/2023 Reliable internet access at home? Not on file 04/22/2023 Device with a working camera? Not on file Sex and Gender Information Value Date Recorded Sex Assigned at Not on file Legal Sex Male 9:07 PM EDT Gender Identity Not on file Sexual Orientation Not on file Plan of Treatment Not on file Medical Devices Not on file Insurance [employer] NET PARTIAL Member Subscriber Plan / Payer (Ef fective 2017-Present) Name:Tim Aleman Relation to Subscriber:Self Name:Tim Aleman Payer ID:Not on file Group ID:Not on file Type:Medicaid Address: [facility], [address] HEALTH SAFETY NET PARTIAL Member Subscriber Plan / Payer (Ef fective 2017-Present) Name:Tim Aleman Relation to Subscriber:Self Name:Tim Aleman Payer ID:Not on file Group ID:Not on file Type:Medicaid Address: [address] HEALTH SAFETY NET PARTIAL Member Subscriber Plan / Payer (Ef fective 2017-Present) Name:Tim Aleman Relation to Subscriber:Self Name:Tim Aleman Payer ID:Not on file Group ID:Not on file Type:Medicaid Address: [address] HEALTH SAFETY NET PARTIAL Member Subscriber Plan / Payer (Ef fective 2017-Present) Name:Tim Aleman Relation to Subscriber:Self Name:Tim Aleman Payer ID:Not on file Group ID:Not on file Type:Medicaid Address: [address] SAFETY NET PARTIAL Member Subscriber Plan / Payer (Ef fective 2017-Present) Name:Tim Aleman Relation to Subscriber:Self Name:Tim Aleman Payer ID:Not on file Group ID:Not on file Type:Medicaid Address: [address] SAFETY NET PARTIAL Member Subscriber Plan / Payer (Ef fective 2017-Present) Name:Herb TavaresTim Relation to Subscriber:Self Name:Aparna Alemanrge Luis Payer ID:Not on file Group ID:Not on file Type:Medicaid Address: [address] NET PARTIAL Member Subscriber Plan / Payer (Ef fective 2017-Present) Name:Herb Tavares Camilo Relation to Subscriber:Self Name:Tim Aleman Luis Payer ID:Not on file Group ID:Not on file Type:Medicaid Address: [address] PARTIAL Member Subscriber Plan / Payer (Ef fective 2017-Present) Name:Tim Aleman Relation to Subscriber:Self Name:Estevez ChaitanyaTim Payer ID:Not on file Group ID:Not on file Type:Medicaid Address: [address] HEALTH SAFETY NET PARTIAL [facility] Care Teams Decorator Mannequin Relationship Specialty Start Date End Date Inna Lutz MD [address] [place] [address] PCP - General Internal Medicine 11/08/21 Additional Source Comments The information contained in this document represents components of the legal health record. It is not the complete legal health record.[facility]
--- OUTSIDE RECORDS SUMMARY | 2025-10-27 16:06 | XMS_ITS | Encounter Summary ---
Author Organization [facility] Address [address] [place] [address] Phone Care Team Providers Care New Client Banking Services Clerk Name Role Phone Inna Lutz MD Primary Care Provider [phone] Encounter Details Date Type Department Care Team (Latest Contact Info) Description 11/09/2021 Transcribe Orders Virtual Department [address] [place] [address] Barb Coleman NP [address] [place] [address] Abdominal pain, unspecified abdominal location (Primary Dx); Rectal bleed Social History Tobacco Use Types Packs/Day Years Used Date Smoking Tobacco: Never Assessed Sex and Gender Information Value Date Recorded Sex Assigned at Not on file Legal Sex Male 9:07 PM EDT Gender Identity Not on file Sexual Orientation Not on file documented as of this encounter Plan of Treatment Not on file documented as of this encounter Visit Diagnoses Diagnosis Abdominal pain, unspecified abdominal location- Primary Rectal bleed Hemorrhage of rectum and anus documented in this encounter Care Teams New Client Banking Services Clerk Relationship Specialty Start Date End Date Inna Lutz MD [address] [place] [address] PCP - General Internal Medicine 11/08/21 documented as of this encounter Additional Source Comments The information contained in this document represents components of the legal health record. It is not the complete legal health record.[facility]
--- OUTSIDE RECORDS SUMMARY | 2025-10-27 16:06 | XMS_ITS | Clinical Summary ---
Author Organization [facility] Address [address] [place] [address] Care Team Providers Care Nut Packer Name Role Phone Vilma Madsen MD Primary Care Provider [phone] Surgical History Surgery Date Site/Laterality Comments LEG SURGERY Left PROCEDURE: HISTORICAL LEG SURGERY; COMMENT: delayed union, 14 surgeries lower leg. [facility] Medical History Medical History Date Comments Depression DX:Depression Anxiety DX:Anxiety ADHD (attention deficit hype ractivity disorder) DX:ADHD (attention deficit hyperactivity disorder) Vitamin D deficiency 07/24/2019 DX:Vitamin D deficiency Gastritis 07/24/2019 DX:Gastritis; CO MMENT: Via EGD in February 2019 Family History Medical History Relation Name Comments No Known Problems Brother 1 No Known Problems Brother 2 No Known Problems Brother 3 No Known Problems Brother 4 No Known Problems Father smoker No Known Problems Maternal Grandfather no relationship No Known Problems Maternal Grandmother no relationship No Known Problems Mother No Known Problems Paternal Grandfather no relationship No Known Problems Paternal Grandmother no relationship No Known Problems Sister 1 No Known Problems Sister 2 Stomach cancer Uncle maternal Relation Name Status Comments Brother 1 Alive Brother 2 Alive Brother 3 Alive Brother 4 Alive Father Alive Maternal Grandfather Other Maternal Grandmother Other Mother Alive Paternal Grandfather Other Paternal Grandmother Other Sister 1 Alive Sister 2 Alive Uncle maternal Alive Social History Tobacco Use Types Packs/Day Years Used Date Smoking Tobacco: Former Cigarettes 0 Q uit: 12/26/2016 Smokeless Tobacco: Never Alcohol Use Standard Drinks/Week Comments Yes 0 (1 standard drink = 0.6 oz pur e alcohol) Sex and Gender Information Value Date Recorded Sex Assigned at Not on file Legal Sex Male 3:31 PM EST Gender Identity Not on file Sexual Orientation Not on file Obstetrics History Last Filed Vital Signs Vital Sign Reading Time Taken Comments Blood Pressure 110/70 09/12/2022 1:18 PM EDT Sit ting L Arm Pulse 83 09/12/2022 1:18 PM EDT Temperature - - Respiratory Rate - - Oxygen Saturation - - Inhaled Oxygen Concentration - - Weight 55.8 kg (123 lb) 09/12/2022 1:18 PM EDT Height 157.5 cm (5' 2 ) 09/12/2022 1:18 PM EDT Body Mass Index 22.5 09/12/2022 1:18 PM EDT Plan of Treatment Health Maintenance Due Date Last Done Comments DTaP,Tdap,and Td Vaccines (1 - Tdap) 2008 Hepatitis B Vaccines (1 of 3 - 19+ 3-dose series) 2008 HPV Vaccines (1 - 3-dose SCD M series) 2016 Cholesterol Screening (Lipid Panel) 11/03/2022 HIV Screening 11/03/2022 Hepatitis C Screening 11/03/2022 Social Influencers of Health Screening 11/03/2022 Depression Screening 11/25/2024 COVID-19 Vaccine (1 - 2024-2 6 season) 2025 Influenza Vaccine (#1) 2025 08/25/2018 RSV Immunization Adult Patie nts (1 - 1-dose 75+ series) 2064 HIB Vaccines Aged Out No longer eligi ble based on patient's age to complete this topic Hepatitis A Vaccines Aged Out No long er eligible based on patient's age to complete this topic IPV Vaccines Aged Out No longer eligi ble based on patient's age to complete this topic MMR Vaccines Aged Out No longer eligi ble based on patient's age to complete this topic Meningococcal ACWY Vaccine Aged Out N o longer eligible based on patient's age to complete this topic Meningococcal B Vaccine Aged Out No l onger eligible based on patient's age to complete this topic Pneumococcal Vaccine: Pediat rics (0 to 5 Years) and At-Risk Patients (6 to 49 Years) Aged Out No longer eligi ble based on patient's age to complete this topic RSV Immunization Patients Un ravindra 20 months Aged Out No longer eligible b ased on patient's age to complete this topic Varicella Vaccines Aged Out No longer eligible based on patient's age to complete this topic Care Teams Nut Packer Relationship Specialty Start Date End Date Vilma Madsen MD PCP - General Internal Medicine 09/20/18
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
--- OUTSIDE RECORDS SUMMARY | 2025-10-27 16:07 | XMS_ITS | Continuity of Care Document ---
Author Organization [place] - [facility], MCKAY Flaherty 2nd floor Address [address] [place] [address] Care Team Providers Care Last Repairer Helper Name Role Phone SABRA MEYER Primary Care Provider MAT ERVIN Pain Management Specialist [phone] AMY LYNNE([facility]) Pain Management Specialist Assessment No assessment recorded. Plan of Treatment [...] 2024 025 [email or web address] Not available 08/11/2025 15:16:42 Procedures None recorded. Surgeries None recorded. Imaging XR, shoulder, 2 or more view - rm 216 right shoulder 3v post op per jg 2024 025 [email or web address] [facility], [address], [place], [address], 08/11/2025 15:16:42 Medication Orders None recorded. Patient TargetsNo targets recorded. Patient InstructionsNo instructions recorded. Reason for Referral Physical Therapist Referral for Pain of right [...] Abnormal Flag Note LastModifiedBy Organization Detail LastModifiedTime 08/06/20 25 08/06/2025 XR, shoul ravindra, 2 or more view http:/ [email or web address] ?Encry pted=s hAaTro YD8dLq bEUv6g %2BXZw aYqtaq 0bqfl% 2Fg9IQ a4ajBk vP9nXo QUaueC m3YtLR FvZlgJ JJ8mAn HZtai3 2w5789 AC0Klb H6CVKS vKiQtr MwF INTERFACE [facility] [address] [facility] [address], [place], [address], 08/06/2025 13:45:21 08/06/20 25 08/06/2025 XR, shoul ravindra, 2 or more view http:/ [email or web address] ?Encry pted=s hAaTro YD8dLq bEUv6g %2BXZw aYqtaq 0bqfl% 2Fg9IQ a4ajBk vP9nXo QUaueC m3YtLR FvZlgJ [place] HZtai3 0g3448 AC0Klb H6CVKS vKiQtr MwF INTERFACE [facility] [address] [facility] [address], [place], [address], 08/06/2025 13:45:23 10/15/20 25 10/15/2025 XR, shoul ravindra, 2 or more view [email or web address] ?Encry pted=s hAaTro YD8dLq bEUv6g %2BXZw aYqtaq 0bqfl% 2Fg9IQ a4ajBk vP9nXo QUaueC m3YtLR FvZlgJ [facility] HZtai[facility] 6d7846 AC0KlY 3qBVaW vKiQtr MwF [facility] [address] [facility] [address] [address], [place], [address], 10/15/2025 14:34:15 10/15/20 25 10/15/2025 XR, shoul ravindra, 2 or more view http:/ [email or web address] ?Encry pted=s hAaTro YD8dLq bEUv6g %2BXZw aYqtaq 0bqfl% 2Fg9IQ a4ajBk vP9nXo QUaueC m3YtLR FvZlgJ JJ8mAn HZtai3 4p6666 AC0KlY 3qBVaW vKiQtr MwF INTERFACE [facility] [address], [place], [address], 10/15/2025 14:34:17 Result Notes Documentation Provider Name and Address Organization Details Recorded Time Xr, Shoulder, 2 Or More View : [email or web address] Encrypted=ynItJvpLZ0vNliJ Uv6g%3VMKtfSdcib0shps%2Fg 1SKt2gcJuxX1kAxYWeteEx5Jj ADYjDzlUNQ3fAeHDpui87f636 0ON8TtiA9BJEObBhSyqPxJ Not Available [facility] 08/06/2025 13:45: 22 Xr, Shoulder, 2 Or More View : [email or web address]? Encrypted=ghEqTjwSF0lCdhK Uv6g%8JGTseCtghc7vhui%2Fg 8YEi1qwTqkF5uHfOFggdAh7Ny YPFkQgjYCE1oTyNTceh02u827 7ON2VcyY8UTPFyAjYrlKzX Not Available [facility] 08/06/2025 13:45: 23 Problems Name Problem SNOMED Code Status Onset Date Resolution Date Notes Provider Name and Address Organization Details Recorded Time Instability of right shoulder joint 038190811 Active 2023 James Whitfield PA-C [address], [place], [address], [facility] 4 06:51:09 Pain of right shoulder joint 8833553212640 91 Active 2023 MORRIS PIRES [place], [place] - [facility] 4 09:54:39 Chronic pain of right upper limb 0109773465209 9108 Active 2023 James Whitfield PA-C [address], [place], [address], [facility] 4 11:12:47 Pain of left shoulder joint 1596113637747 9109 Active 2023 James Whitfield PA-C [address], [place], [address], [facility] - [facility] 4 11:32:24 Pain of left shoulder region Active 2023 James Whitfield PA-C [address], [place], [address], [facility] 4 10:48:08 Neck pain 94604822 Active 2023 Mitch San MD [address], [place], [address], [facility] - [facility] 5 10:59:05 Sprain of left acromioclav icular ligament 6576173060876 9103 Active 2023 James Whitfield PA-C [address], [place], [address], [facility] 4 11:19:57 Cervical spondylosis 166233797 Active 2024 Mitch San MD [address], [place], [address], [facility] 5 16:34:54 Strain of neck muscle 740793090 Active 2024 Mitch San MD [address], [place], [address], [facility] 5 16:34:56 Problem Notes None recorded. Procedures Surgical History Date Name Laterality Status Provider Name and Address Organization Details Recorded Time 5 52353 Therapeutic Exercise (1:1) completed Danuta Duran PTA [address], [place], [address], [facility] 01/06/2025 13:44:44 5 34344: Manual therapy completed Danuta Duran PTA [address], [place], [address], [facility] 01/06/2025 13:44:44 5 86075 Therapeutic Exercise (1:1) completed Danuta Duran, CAKE PRESS OPERATOR [address], [place], [address], [facility] 01/01/2025 07:13:25 5 86038: Manual therapy completed Danuta Duran, CAKE PRESS OPERATOR [address], [place], [address], [facility] 01/01/2025 07:13:25 5 44733 Therapeutic Exercise (1:1) completed Danuta Duran, CAKE PRESS OPERATOR [address], [place], [address], [facility] 12/30/2024 11:02:27 5 37619: Manual therapy completed Danuta Duran, CAKE PRESS OPERATOR [address], [place], [address], [facility] 12/30/2024 11:02:27 5 45580 Therapeutic Exercise (1:1) cancelled Danuta Duran, CAKE PRESS OPERATOR [address], [place], [address], [facility] 12/28/2024 06:41:48 5 08574: Manual therapy cancelled Danuta Duran, CAKE PRESS OPERATOR [address], [place], [address], [facility] 12/28/2024 06:41:48 5 45582 Therapeutic Exercise (1:1) cancelled Michael Thurston, PT [address], [place], [address], [facility] 12/24/2024 06:51:08 5 63153: Manual therapy cancelled Michael Thurston, PT [address], [place], [address], [facility] 12/24/2024 06:51:08 5 22398 Therapeutic Exercise (1:1) completed Michael Thurston, PT [address], [place], [address], [facility] 12/22/2024 12:29:47 5 01808: Manual therapy completed Michaelmor Thurston, PT [address], [place], [address], [facility] 12/22/2024 12:29:56 5 64382 Therapeutic Exercise (1:1) cancelled Michael Glendyek, PT [address], [place], [address], [facility] 12/16/2024 17:30:22 5 71238: Low complexity PT Eval cancelled Michaelmor Thurston, PT [address], [place], [address], [facility] 12/16/2024 17:30:22 5 46039 Therapeutic Exercise (1:1) completed Michaelmor Thurston, PT [address], [place], [address], [facility] 12/02/2024 13:25:08 5 79279: Low complexity PT Eval completed Michaelmor Thurston, PT [address], [place], [address], [facility] 12/02/2024 13:25:08 5 46197 Therapeutic Exercise (1:1) cancelled Michaelmor Thurston, PT [address], [place], [address], [facility] 12/02/2024 05:35:53 5 76086: Hot or Cold Pack cancelled Michaelmor Thurston, PT [address], [place], [address], [facility] 12/02/2024 05:35:53 5 05141: Manual therapy cancelled Michaelmor Thurston, PT [address], [place], [address], [facility] 12/02/2024 05:35:53 4 64339 Therapeutic Exercise (1:1) cancelled Michael Glendyek, PT [address], [place], [address], [facility] 09/22/2024 06:41:31 4 40619: Hot or Cold Pack cancelled Michael Glendyek, PT [address], [place], [address], [facility] 09/22/2024 06:41:31 96050: Manual therapy cancelled Michael Glendyek, PT [address], [place], [address], [facility] 09/22/2024 06:41:31 69223 Therapeutic Exercise (1:1) cancelled Michaelmor Pikeek, PT [address], [place], [address], [facility] 09/14/2024 12:23:31 4 52086: Hot or Cold Pack cancelled Michael Glendyek, PT [address], [place], [address], [facility] 09/14/2024 12:23:31 58602: Manual therapy cancelled Michaelmor Pikeek, PT [address], [place], [address], [facility] 09/14/2024 12:23:31 92128 Therapeutic Exercise (1:1) cancelled Danuta Duran, CAKE PRESS OPERATOR [address], [place], [address], [facility] 09/08/2024 17:28:34 87502: Hot or Cold Pack cancelled Danuta Duran, CAKE PRESS OPERATOR [address], [place], [address], [facility] 09/08/2024 17:28:34 10/17/202 4 53958: Manual therapy cancelled Danuta Duran, CAKE PRESS OPERATOR [address], [place], [address], [facility] 09/08/2024 17:28:34 4 58660 Therapeutic Exercise (1:1) completed Danuta Roger CAKE PRESS OPERATOR [address], [place], [address], [facility] 09/01/2024 14:05:39 4 09157: Hot or Cold Pack completed Danuta Duran, CAKE PRESS OPERATOR [address], [place], [address], [facility] 09/01/2024 14:05:39 4 52597: Manual therapy completed Danuta Duran CAKE PRESS OPERATOR [address], [place], [address], [facility] 09/01/2024 14:05:39 71634 Therapeutic Exercise (1:1) completed Danuta Duran PTA [address], [place], [address], [facility] 08/31/2024 08:08:26 4 86552: Hot or Cold Pack completed Danuta Roger CAKE PRESS OPERATOR [address], [place], [address], [facility] 08/31/2024 08:08:26 4 85343: Manual therapy completed Danuta Duran CAKE PRESS OPERATOR [address], [place], [address], [facility] 08/31/2024 08:08:26 64002 Therapeutic Exercise (1:1) completed Danuta Duran CAKE PRESS OPERATOR [address], [place], [address], [facility] 08/28/2024 07:12:27 4 47744: Hot or Cold Pack completed Danuta Duran CAKE PRESS OPERATOR [address], [place], [address], [facility] 08/28/2024 07:12:27 4 36475: Manual therapy completed Danuta Duran PTA [address], [place], [address], [facility] 08/28/2024 07:12:27 4 84075 Therapeutic Exercise (1:1) completed Danuta Duran PTA [address], [place], [address], [facility] 08/24/2024 15:15:24 84952: Hot or Cold Pack completed Danuta Duran PTA [address], [place], [address], [facility] 08/24/2024 15:15:24 4 59696: Manual therapy completed Danuta Duran PTA [address], [place], [address], [facility] 08/24/2024 15:15:24 4 75076 Therapeutic Exercise (1:1) completed Danuta Duran PTA [address], [place], [address], [facility] 08/17/2024 06:50:55 4 72553: Hot or Cold Pack completed Danuta Duran PTA [address], [place], [address], [facility] 08/17/2024 06:50:55 4 78475: Manual therapy completed Danuta Duran PTA [address], [place], [address], [facility] 08/17/2024 06:50:55 41546 Therapeutic Exercise (1:1) cancelled Danuta Duran PTA [address], [place], [address], [facility] 08/11/2024 15:24:58 4 40183: Hot or Cold Pack cancelled Danuta Duran, CAKE PRESS OPERATOR [address], [place], [address], [facility] 08/11/2024 15:24:58 4 45718: Manual therapy cancelled Danuta Duran, CAKE PRESS OPERATOR [address], [place], [address], [facility] 08/11/2024 15:24:58 4 71906 Therapeutic Exercise (1:1) cancelled Danuta Duran, CAKE PRESS OPERATOR [address], [place], [address], [facility] 08/09/2024 10:41:48 4 88679: Hot or Cold Pack cancelled Danuta Duran, CAKE PRESS OPERATOR [address], [place], [address], [facility] 08/09/2024 10:41:48 4 99288: Manual therapy cancelled Danuta Duran, CAKE PRESS OPERATOR [address], [place], [address], [facility] 08/09/2024 10:41:48 4 45168 Therapeutic Exercise (1:1) completed Danuta Duran, CAKE PRESS OPERATOR [address], [place], [address], [facility] 08/06/2024 16:26:53 4 29541: Hot or Cold Pack completed Danuta Duran, CAKE PRESS OPERATOR [address], [place], [address], [facility] 08/06/2024 16:26:53 4 35564: Manual therapy completed Danutamalini Gardunoer, CAKE PRESS OPERATOR [address], [place], [address], [facility] 08/06/2024 16:26:53 4 17907 Therapeutic Exercise (1:1) completed Danuta Duran, CAKE PRESS OPERATOR [address], [place], [address], [facility] 08/04/2024 14:07:25 4 02234: Hot or Cold Pack completed Danuta Duran, CAKE PRESS OPERATOR [address], [place], [address], [facility] 08/04/2024 14:07:25 4 59582: Manual therapy completed Danuta Duran, CAKE PRESS OPERATOR [address], [place], [address], [facility] 08/04/2024 14:07:25 4 66130 Therapeutic Exercise (1:1) cancelled Danuta Duran, CAKE PRESS OPERATOR [address], [place], [address], [facility] 07/31/2024 16:29:11 4 22054: Hot or Cold Pack cancelled Danuta Duran, CAKE PRESS OPERATOR [address], [place], [address], [facility] 07/31/2024 16:29:11 4 81772: Manual therapy cancelled Danuta Duran, CAKE PRESS OPERATOR [address], [place], [address], [facility] 07/31/2024 16:29:11 4 62041 Therapeutic Exercise (1:1) completed Danuta Duran, CAKE PRESS OPERATOR [address], [place], [address], [facility] 07/29/2024 12:20:26 4 35015: Hot or Cold Pack completed Danuta Duran, CAKE PRESS OPERATOR [address], [place], [address], [facility] 07/29/2024 12:20:26 4 47782: Manual therapy completed Danuta Duran, CAKE PRESS OPERATOR [address], [place], [address], [facility] 07/29/2024 12:20:26 4 33798 Therapeutic Exercise (1:1) completed Danuta Duran PTA [address], [place], [address], [facility] 07/24/2024 21:21:57 4 31370: Hot or Cold Pack completed Danuta Duran PTA [address], [place], [address], [facility] 07/24/2024 21:21:57 4 97478: Manual therapy completed Danuta Duran PTA [address], [place], [address], [facility] 07/24/2024 21:21:57 4 70142 Therapeutic Exercise (1:1) completed Danuta Duran PTA [address], [place], [address], [facility] 07/21/2024 15:20:38 4 22205: Hot or Cold Pack completed Danuta Duran PTA [address], [place], [address], [facility] 07/21/2024 15:20:38 4 83233: Manual therapy completed Danuta Duran PTA [address], [place], [address], [facility] 07/21/2024 15:20:38 4 79806 Therapeutic Exercise (1:1) completed Danuta Duran PTA [address], [place], [address], [facility] 07/18/2024 15:45:22 4 54076: Hot or Cold Pack completed Danuta Duran PTA [address], [place], [address], [facility] 07/18/2024 15:45:22 4 92692: Manual therapy completed Danuta Duran, CAKE PRESS OPERATOR [address], [place], [address], [facility] 07/18/2024 15:45:22 4 06013 Therapeutic Exercise (1:1) completed Danuta Duran, CAKE PRESS OPERATOR [address], [place], [address], [facility] 07/13/2024 15:17:27 4 56355: Hot or Cold Pack completed Danuta Duran CAKE PRESS OPERATOR [address], [place], [address], [facility] 07/13/2024 15:17:27 4 10324: Manual therapy completed Danuta Duran, CAKE PRESS OPERATOR [address], [place], [address], [facility] 07/13/2024 15:17:27 4 36198 Therapeutic Exercise (1:1) cancelled Michaelmor Thurston, PT [address], [place], [address], [facility] 07/16/2024 06:56:14 4 79646: Hot or Cold Pack cancelled Michael Glendyek, PT [address], [place], [address], [facility] 07/16/2024 06:56:14 4 73513: Manual therapy cancelled Michael Glendyek, PT [address], [place], [address], [facility] 07/16/2024 06:56:14 4 21104 Therapeutic Exercise (1:1) completed Danuta Duran, CAKE PRESS OPERATOR [address], [place], [address], [facility] 07/08/2024 12:48:52 4 65021: Hot or Cold Pack completed Danuta Duran, CAKE PRESS OPERATOR [address], [place], [address], [facility] 07/07/2024 16:05:32 4 04166: Manual therapy completed Danuta Duran PTA [address], [place], [address], [facility] 07/07/2024 16:05:32 4 36546 Therapeutic Exercise (1:1) completed Danuta Duran PTA [address], [place], [address], [facility] 07/03/2024 12:00:20 4 77655: Hot or Cold Pack completed Danuta Duran PTA [address], [place], [address], [facility] 07/03/2024 12:00:20 4 66261: Manual therapy completed Danuta Duran PTA [address], [place], [address], [facility] 07/03/2024 12:00:20 4 44096 Therapeutic Exercise (1:1) completed Danuta Duran PTA [address], [place], [address], [facility] 06/30/2024 17:33:45 4 44041: Hot or Cold Pack completed Danuta Duran PTA [address], [place], [address], [facility] 06/30/2024 17:33:45 4 53337: Manual therapy completed Danuta Duran PTA [address], [place], [address], [facility] 06/30/2024 17:33:45 4 95280 Therapeutic Exercise (1:1) completed Danuta Duran PTA [address], [place], [address], [facility] 06/28/2024 18:37:48 4 52046: Hot or Cold Pack completed Danuta Duran, CAKE PRESS OPERATOR [address], [place], [address], [facility] 06/28/2024 18:37:48 4 49481: Manual therapy completed Danuta Duran CAKE PRESS OPERATOR [address], [place], [address], [facility] 06/28/2024 18:37:48 4 11990 Therapeutic Exercise (1:1) completed Danuta Duran CAKE PRESS OPERATOR [address], [place], [address], [facility] 06/24/2024 14:43:05 4 89466: Hot or Cold Pack completed Danuta Duran CAKE PRESS OPERATOR [address], [place], [address], [facility] 06/24/2024 14:43:05 4 49233: Manual therapy completed Danuta Duran CAKE PRESS OPERATOR [address], [place], [address], [facility] 06/24/2024 14:43:05 4 47763 Therapeutic Exercise (1:1) completed Michael Thurston, PT [address], [place], [address], [facility] 06/23/2024 05:24:29 4 51281: Hot or Cold Pack completed Michael Thurston, PT [address], [place], [address], [facility] 06/23/2024 05:22:26 4 63855: Manual therapy completed Michael Thurston, PT [address], [place], [address], [facility] 06/23/2024 05:24:26 4 67096 Therapeutic Exercise (1:1) completed Danuta Duran CAKE PRESS OPERATOR [address], [place], [address], [facility] 06/17/2024 12:59:58 4 10225: Hot or Cold Pack completed Danuta Duran, CAKE PRESS OPERATOR [address], [place], [address], [facility] 06/17/2024 12:59:58 4 23551: Manual therapy completed Danuta Duran CAKE PRESS OPERATOR [address], [place], [address], [facility] 06/17/2024 12:59:58 4 08809 Therapeutic Exercise (1:1) completed Danuta Duran CAKE PRESS OPERATOR [address], [place], [address], [facility] 06/15/2024 15:18:55 4 09177: Hot or Cold Pack completed Danuta Duran CAKE PRESS OPERATOR [address], [place], [address], [facility] 06/15/2024 15:18:55 4 10856: Manual therapy completed Danuta Duran PTA [address], [place], [address], [facility] 06/15/2024 15:18:55 4 88799 Therapeutic Exercise (1:1) completed Michael Thurston, PT [address], [place], [address], [facility] 06/11/2024 08:35:04 4 32360: Hot or Cold Pack completed Michael Thurston, PT [address], [place], [address], [facility] 06/11/2024 08:35:04 4 [id number]: Manual therapy completed Michael Thurston, PT [address], [place], [address], [facility] 06/11/2024 08:35:04 4 [id number] Therapeutic Exercise (1:1) completed Michaelmor Thurston, PT [address], [place], [address], [facility] 06/08/2024 06:41:08 4 97982: Hot or Cold Pack completed Michaelmor Thurston, PT [address], [place], [address], [facility] 06/08/2024 06:41:08 4 60110: Manual therapy completed Michaelmor Thurston, PT [address], [place], [address], [facility] 06/08/2024 06:41:08 4 [id number] Therapeutic Exercise (1:1) cancelled Michaelmor Thurston, PT [address], [place], [address], [facility] 06/03/2024 07:05:05 4 32732: Hot or Cold Pack cancelled Michaelmor Thurston, PT [address], [place], [address], [facility] 06/03/2024 07:05:05 4 53381: Manual therapy cancelled Michaelmor Thurston, PT [address], [place], [address], [facility] 06/03/2024 07:05:05 4 67242 Therapeutic Exercise (1:1) completed Michaelmor Thurston, PT [address], [place], [address], [facility] 06/01/2024 08:17:00 4 34980: Hot or Cold Pack completed Michaelmor Thurston, PT [address], [place], [address], [facility] 06/01/2024 08:17:00 4 87638: Manual therapy completed Michael Thurston, PT [address], [place], [address], [facility] 06/02/2024 06:13:36 4 61265 Therapeutic Exercise (1:1) completed Danuta Duran, CAKE PRESS OPERATOR [address], [place], [address], [facility] 05/26/2024 13:25:19 4 05718: Hot or Cold Pack completed Danuta Duran, CAKE PRESS OPERATOR [address], [place], [address], [facility] 05/26/2024 13:25:13 4 60498: Manual therapy completed Danuta Duran, CAKE PRESS OPERATOR [address], [place], [address], [facility] 05/26/2024 13:25:21 4 44085 Therapeutic Exercise (1:1) completed Michael Thurston, PT [address], [place], [address], [facility] 05/15/2024 14:11:41 4 54403: Low complexity PT Eval completed Michael Thurston, PT [address], [place], [address], [facility] 05/15/2024 14:11:47 4 Shoulder Surgery completed HANNAH [place] [facility] 02/18/2025 08:28:24 4 02700 Therapeutic Exercise (1:1) completed LILIANA TobarT [address], [place], [address], [facility] 02/11/2024 10:54:58 4 76242: Manual therapy completed Isaias Sargent DPT [address], [place], [address], [facility] 02/11/2024 10:57:19 Ankle/Foot Surgery completed ROSALIAFLORENCE LOPEZDEN [facility] 04/17/2024 13:42:05 Other completed ROSALIA NEMESIO [facility] 04/17/2024 13:42:05 Imaging Results None recorded. Procedure Notes None recorded. Medical Equipment None Reported. Allergies Allergen ID Allergen Name Allergen Category Reaction Reaction Severity Criticality Documentation Date Start Date Code Code System Note Provider Name and Address Organization Details Recorded Time 454745 methocarb martín medicatio n Not available Not available Not available 10/15/2025 6845 RxNorm Not Available [facility] 5 04:23:24 776699 morphine medicatio n Not available Not available [facility] 10/15/2025 7052 RxNorm Not Available [facility] 5 04:23:24 956252 Robaxin medicatio n Not available Not available Not available 10/15/2025 58990 5 RxNorm Not Available [facility] 5 04:24:09 396993 amoxicill in medicatio n Not available Not available Not available 10/15/20252018 723 RxNorm Dizzy , nause a, vomit Not Available [facility] 5 04:24:10 010284 gabapenti n medicatio n Not available Not available Not available 10/15/20252017 09884 RxNorm Menta l insta bilit y Not Available [facility] 5 04:24:10 56644 morphine sulfate medicatio n Not available Not available Not available 01/27/20242022 35309 RxNorm Not Available [facility] 4 12:33:19 Medications Name Sig Start Date [...] Available Not Available Not Available amoxicillin 875 mg-potalfredoiu m clavulanate 125 mg tablet TAKE 1 [...] Updated DateTime 08/06/2025 157.48 cm 22.9 kg/m2 42766.05 g Esvin rGace [facility] 08/06/2025 13:32:51 Social History None recorded. Functional Status None recorded. Mental Status None recorded. Family History Nothing Reported. Medical History Condition Response Allergies/Hayfever N Coronary Artery Disease N Anxiety/Depression N Breathing or lung disorders N Emphysema N Nerve Disorders N Thyroid Problems N COPD N Pacemaker N Anemia N Kidney/Bladder Problems N Vascular Disease N Heart Trouble N Heart Attack ([place]) N Gastrointestinal Disease N Cholesterol N Diabetes [...] ICD10 Code Diagnosis IMO Codes Diagnosis Note [id number] MD MCKAY Hartley [address] [place] [address] 08/06/2025 13:19:28 08/11/2025 15:16:42 Pain of right shoulder joint [id number] M25.511 [id number] Follow-up orthopedic assessment [id number] Z47.89 [id number] Health Concerns Section Related Observation LastModified by Organization Detai ls LastModified Time None Recorded Concern Status LastModified by Organization Details LastModified Time None Recorded Payers Encounter Date Sequence Insurance Name Policy Number Policy Robles Covered Member ID Robles Member ID Guarantor Name 08/06/2025 [employer] Tim Mendez Herb Tavares Notes Date Note Type Note Provider Name and Address Organization Details Recorded Time 08/06/2025 text/html Surgery: Right shoulder open coracoid [...] the right shoulder ordered and obtained at [facility] 03/05/2025 were reviewed during the visit. These [...] CT of the right shoulder performed at [facility] 10/07/2024 independently reviewed by me on OrthoP[facility] [...] AC joints, acromion, proximal humerus. 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 [facility] speech recognition review analyst software was used to create portions of this document. An attempt at proofreading has been made to minimize errors. Please call for corrections. Vandana Padgett MD [address] [place] [address] [address], [place], [address], [facility] 08/06/2025 14:23:57
== END 2025-10-27 14:38 | disposition home or self-care (01) ==
PROVIDERS: Physician Assistant; Emergency Provider Emergency Medicine; PCP Internal Medicine
DX: R07.89 Other chest pain (principal); R11.2 Nausea with vomiting, unspecified; T36.0X5A Adverse effect of penicillins, initial encounter; Y92.89 Other specified places as the place of occurrence of the external cause
CPT/HCPCS: 36415; 71046; 80053; 81003; 83690; 83880; 84484; 85025; 85610; 85730; 87637; 87651; 93005; 96372; 99284; J1885

== ENCOUNTER → 2025-10-27 11:35 | Outpatient (BNV) | payer BC, SELFPAY | PROVIDERS: Emergency Provider Emergency Medicine; PCP Internal Medicine; Visit Provider Internal Medicine | DX: R10.12 Left upper quadrant pain (principal) | CPT/HCPCS: 93010 ==

== ENCOUNTER → 2025-10-27 11:35 | Outpatient (BNV) | payer BC, SELFPAY | PROVIDERS: Emergency Provider Emergency Medicine; PCP Internal Medicine; Visit Provider Radiology Body Imaging | DX: R07.89 Other chest pain (principal) | CPT/HCPCS: 71046 ==

== ENCOUNTER 2025-11-21 16:57 | Emergency (ER) | payer BC, MEDICAID, SELFPAY ==
--- NOTE | ~2025-11-21 | XR_ITS ---
CLINICAL HISTORY: pain, injury 3 view left hand Comparison: None provided Findings: No fractures or dislocations. No significant arthritic change. No erosions. No radiopaque foreign body. IMPRESSION: 1. No acute findings This document has been electronically signed by: Mundo Coyle MD on 11/21/2025 19:23:43
[2025-11-21 17:22] VITALS: BP 132/83; PULSE 93; RESP 20; TEMP 36.6; O2SAT 99; BMI 22.3
--- NOTE | 2025-11-21 17:24 | ED_ITS ---
HPI - General Adult General Chief complaint: Animal Bite Stated complaint: hand dog bite Time Seen by Provider: 11/21/25 21:29 History of Present Illness ED Provider: Ozzy Whipple MD HPI narrative: This is a 35-year-old male who was bit in the left hand by what he describes as a large dog of his neighbor in the apartment hallway. He was unsure of the dog's vaccination status but this is a dog that is owned by the neighbor. 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 No drainage no numbness tingling he denies any significant other medical history he has had upper respiratory infection symptoms on and off for the past 2 weeks or so Related Data Previous Rx's ?Medication ?Instructions ?Recorded lidocaine 4 % topical patch 1 patch topical DAILY PRN pain 7 10/27/25 (Aspercreme (lidocaine)) days #10 ea naproxen 500 mg tablet 500 mg PO BID 5 days #10 tab s 10/27/25 amoxicillin 875 mg-potassium 1 tab PO BID 7 days #14 t abs 11/21/25 clavulanate 125 mg tablet Allergies Allergy/AdvReac Type Severity Reaction Status Date / Time methocarbamol (From Robaxin) Allergy Anaphylaxis Verified 11/24/25 10:00 [facility] Past Medical History Medical History (Updated 11/24/25 @ 10:34 by Clifford Romeo) Rabies exposure Surgical History (Updated 11/24/25 @ 10:07 by POLO Whaley) History of right shoulder surgery Social History Social History (Updated 11/24/25 @ 10:05 by POLO Whaley) Patient Tobacco Use Status: Never used Tobacco Current occupational status: employed 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 Head: Atraumatic Eyes: Anicteric, Normal conjunctiva. ENT: Moist mucosa, no pallor. ? Neck: Supple. Skin: ?No observable rash or bruising on exposed or examined skin. Left dorsal hand with superficial abrasions perhaps 1 small puncture abby. No induration erythema warmth fluctuance. The hand does have some mild swelling mostly over the ulnar aspect near the metatarsals there was no gross deformity in the hand and digits are well-perfused. 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 Cardiovascular: Regular rate and rhythm. No murmurs or rub. Well perfused periphery, warm extremities. No edema. ? Abdominal: No focal tenderness. Soft, no objective distension. No palpable masses or obvious organomegaly. ?No guarding, no rebound tenderness or other peritoneal findings. : No flank tenderness. Neuro: Alert. Gross movement of all extremities intact. ? Psych: Calm. Cooperative. MSK: No grossly visible deformity. Vital signs: See flowsheet Vital Signs: Vital Signs - 24 hr 11/21/25 17:22 Temperature 97.9 F Pulse Rate 93 Respiratory Rate 20 Blood Pressure 132/83 Pulse Oximetry 99 Oxygen Delivery Method Room Air BMI result Body Mass Index 22.3 Course Course Course Narrative: Rapid medical examination performed in triage by Leslye Tovar PA-C: Patient is a 35 year old male presenting to the emergency department with a left hand dog bite. Patient states that earlier this morning he was bit by a dog on his left hand, he does not know the vaccination status of the dog. Patient states that he is having significant hand pain. Detailed physical exam and review of systems are deferred to the riprap worker. Labs, imaging, and rabies ordered. Patient placed back in the waiting room pending room availability and results. Medications Administered Discontinued Medications Generic Name Dose Route Start Last Admin Trade Name Freq PRN Reason Stop Dose Admin Acetaminophen 975 mg 11/21/25 21:41 11/21/25 22:45 Acetaminophen 325 Mg Tablet PO 11/21/25 21:42 975 mg ONCE ONE Administration Bacitracin 1 appl 11/21/25 21:41 11/21/25 22:44 Bacitracin Oint 0.9 Gm Packet TOPICAL 11/21/25 21:42 1 appl ONCE ONE Administration Protocol Diphtheria/Tetanus/Acell Pertussis 0.5 ml 11/21/25 17:25 11/21/25 22:39 Diphth,Pertus(Acell),Tet Adult 0.5 Ml Syringe IM 11/21/25 17:26 Not Given .ONCE ONE Piperacillin Sod/Tazobactam 50 mls @ 100 mls/hr 11/21/25 20:57 11/21/25 22:49 Sod 3.375 gm/ Sodium Chloride IV 11/21/25 21:26 Infused ONCE ONE Infusion Ketorolac Tromethamine 15 mg 11/21/25 21:41 11/21/25 22:45 Ketorolac Tromethamine 15 Mg/Ml Vial IVPUSH 11/21/25 21:42 15 mg ONCE ONE Administration Rabies Immune Globulin 1,106 unit 11/21/25 20:57 11/21/25 22:25 Rabies Immune Globulin/Pf 300 Unit/Ml Vial 20 unit/kg (1106 unit) 11/21/25 20:58 1,106 unit IM Administration ONCE ONE Rabies Vaccine 1 ml 11/21/25 20:57 11/21/25 22:24 Rabies Vaccine (Pcec)/Pf 1 Ml Vial IM 11/21/25 20:58 1 ml .ONCE ONE Administration Medical Decision Making Medical Decision Making MDM Narrative: Medical Decision Making: This is a 35-year-old healthy male who received dog bite that appears quite superficial mostly with the abrasions and probably underlying musculoskeletal contusion without bony injury on x-ray of the hand. Due to the level of his pain and swelling I felt it reasonable to splint the hand in a position of comfort covered the dog bite with Xeroform there was no suturable injury. Prior to my evaluation of the patient the patient had received blood cultures and intravenous Zosyn as well as rabies vaccine. I had a shared decision-making discussion with the patient given the history and context provided the fact that the patient is placing dog bite report and the dog can be observed by neighbor presumably he and I discussed risks and benefits of ongoing rabies vaccination he said he would decide but thinks he would decide against continue continuing this. Patient was placed in a volar splint. Discharge with Augmentin hand surgery follow up Preliminary Favored Differential Diagnosis: Dog bite, infection exposure, puncture wound, contusion or bruising or occult hand bone fracture among additional considered etiologies Testing Interpreted Independently: ?See below for details Radiology or Lab testing Results Reviewed: ?See below for details Consults: ?See below for details Independent Historians/External Chart Reviews: ?See below for details Social Determinants of Health Impacting MDM/Planning: ?See below for details Lab Data 11/21/25 17:39 11/21/25 17:39 Labs: Lab Results 11/21/25 11/21/25 Range/Units 17:39 21:04 WBC 8.9 (4.8-10.8) X10*3/uL RBC 4.96 (4.60-5.80) X10*6/uL Hgb 14.9 (14.0-18.0) g/dl Hct 44.9 (42.0-52.0) % MCV 90.5 (80.0-98.0) fL MCH 30.0 (27.0-33.0) pg MCHC 33.2 (31.0-36.0) g/dl RDW 11.9 (11.0-16.0) % Plt Count 331 (160-400) X10*3/uL MPV 9.6 (9.4-12.4) fL Immature Gran % (Auto) 0.3 (0.0-0.4) % Neut % (Auto) 83.3 H (45-73) % Lymph % (Auto) 9.7 L (20-40) % [place] % (Auto) 5.2 (2-11) % Eos % (Auto) 1.0 (0-4) % Baso % (Auto) 0.5 (0-2) % Lymph # (Auto) 0.9 L (1.2-4.9) X10*3/uL [place] # (Auto) 0.5 (0.1-1.2) X10*3/uL Eos # (Auto) 0.1 (0.0-0.4) X10*3/uL Baso # (Auto) 0.0 (0.0-0.2) X10*3/uL Abs Immat Gran (auto) 0.03 (0.00-0.03) X10*3/uL Absolute Neuts (auto) 7.4 (2.0-8.3) x10*3/uL Absolute Nucleated RBC 0.000 (0.0-0.012) X10*3/uL Nucleated RBC % (auto) 0.0 (0.0-0.2) /100WBC ESR 38 H (1-15) MM/HR Sodium 139 (135-145) mmol/L Potassium 3.8 (3.3-5.1) mmol/L Chloride 102 (96-108) mmol/L Carbon Dioxide 26 (22-29) mmol/L Anion Gap 15 (12-20) BUN 15 (9-16) mg/dL Creatinine 0.84 (0.5-1.4) mg/dL Estim Creat Clear Calc 93.8 Estimated GFR > 60 Random Glucose 91 (60-115) mg/dL Lactic Acid 0.9 (0.5-2.0) mmol/L Calcium 10.2 (8.4-10.2) mg/dL Total Bilirubin 0.5 (0.0-1.0) mg/dL AST 24 (5-37) U/L ALT 32 (0-40) U/L Alkaline Phosphatase 89 (39-117) U/L C-Reactive Protein 2.15 H (< or = 0.50) mg/dL Total Protein 8.8 H (6.5-8.0) g/dL Albumin 5.4 H (3.5-5.0) g/dL Discharge Plan Discharge Clinical Impression: Dog bite, Contusion of hand Patient Disposition: Home, Self-Care Instructions: Animal Bite (ED) Additional Instructions: You will need to follow up with your neighbor and file a report for the dog bite. Please pursue filing a police report or calling your local police station to reported dog bite and accessing the dogs records for rabies vaccination. Dog bites are extraordinarily rare to cause rabies especially in the [facility]. You did receive an initial dose of this because it was unclear whether you were exposed to a possible rapid dog but given the history provide this is very unlikely. X-ray of the hand did not show fracture. We will splint your hand and a comfort dual position and you can follow up with hand surgery to reassess the wound and re-evaluate your hand given the level of tenderness and swelling despite lack of bony injuries on x-ray of the hand. Prescriptions: New amoxicillin-pot clavulanate 875-125 mg tablet 1 tab PO BID 7 Days Qty: 14 0RF No Action lidocaine [Aspercreme (lidocaine)] 4 % adhesive patch,medicated 1 patch topical DAILY PRN (Reason: pain) 7 Days Qty: 10 0RF naproxen 500 mg tablet 500 mg PO BID 5 Days Qty: 10 0RF Referrals: [facility] [Provider Group, Hand Surgery] Referral Note: Dog bite, significant hand contusion Stand Alone Forms: Work/School Release Interventions: ED Discharge Assessment Last Done: 11/21/25 23:12 Discharge Date/Time: 11/21/25 23:12 Print Language: Cypriot
--- OUTSIDE RECORDS SUMMARY | 2025-11-21 17:50 | XMS_ITS | Clinical Summary ---
Author Organization [facility] Address [address] [place], [place] [id number] Phone Care Team Providers Care Head Inspector And Center Marker Name Role Phone Inna Lutz MD Primary Care Provider [phone] Social History Tobacco Use Types Packs/Day Years [...] Type:Medicaid Address: [facility], [id number] [employer] NET PARTIAL Member Subscriber Plan / Payer (Ef fective 2017-Present) Name:Tim Aleman Relation to Subscriber:Self Name:Tim Aleman Payer ID:Not on file Group ID:Not on file Type:Medicaid Address: [address] [employer] NET PARTIAL Member Subscriber Plan / Payer (Ef fective 2017-Present) Name:Tim Aleman Relation to Subscriber:Self Name:Tim Aleman Payer ID:Not on file Group ID:Not on file Type:Medicaid Address: [address] [employer] NET PARTIAL Member Subscriber Plan / Payer (Ef fective 2017-Present) Name:Tim Aleman Relation to Subscriber:Self Name:Tim Aleman Payer ID:Not on file Group ID:Not on file Type:Medicaid Address: [address] [employer] NET PARTIAL Member Subscriber Plan / Payer (Ef fective 2017-Present) Name:Tim Aleman Relation to Subscriber:Self Name:Tim Aleman Payer ID:Not on file Group ID:Not on file Type:Medicaid Address: [address] [employer]AF[employer] NET PARTIAL Member Subscriber Plan / Payer (Ef fective 2017-Present) Name:Herb TavaresTim Relation to Subscriber:Self Name:Aparna Alemanrge Luis Payer ID:Not on file Group ID:Not on file Type:Medicaid Address: [address] NET PARTIAL Member Subscriber Plan / Payer (Ef fective 2017-Present) Name:Herb Tavares Camilo Relation to Subscriber:Self Name:Tim Aleman Luis Payer ID:Not on file Group ID:Not on file Type:Medicaid Address: [address] PARTIAL Member Subscriber Plan / Payer (Ef fective 2017-Present) Name:Tim Aleman Relation to Subscriber:Self Name:Estevez ChaitanyaTim Payer ID:Not on file Group ID:Not on file Type:Medicaid Address: [address] [employer]AF[employer] NET [facility] [facility] Care Teams Head Inspector And Center Marker Relationship Specialty Start Date End Date Inna Lutz MD [address] [place] [id number] PCP - General Internal Medicine 11/08/21 Additional Source Comments The information contained in this document represents components of the legal health record. It is not the complete legal health record.[facility]
--- OUTSIDE RECORDS SUMMARY | 2025-11-21 17:50 | XMS_ITS | Continuity of Care Document ---
Author Organization [facility] Address [address] [place] [address] Care Team Providers Care Professor Of Environmental Studies Name Role Phone Sabra Sharma Primary Care Provider Assessment No assessment recorded. Plan of Treatment Reminders Order Date Submit Date Provider Name Organization Details Last Modified By Last Modified Time Details Appointments RECHEC K 15 2025 03:30P M Vandana Padgett MD Not available Not available Not available Lab None record ed. Referral None record ed. Procedures None record ed. Surgeries None record ed. Imaging XR, should er, 2 or more view 2024 14:25: 32 025 Vandana Padgett MD [facility] Office [address] [facility] [address], [place], [address], [facility] 10/26/2025 14:10:04 MedicationOrders None record ed. VaccineOrders None record ed. Patient TargetsNo targets recorded. Patient Instructions Encounter Date Encounter Id Patient Instructions Last Modified By Organization Details Last Modified Time 10/15/2025 [id number] Will have Adnrew continue with work conditioning, which seems to [...] Name Description Value Unit Range Abnormal Flag Specimen Type Note LastModifiedBy Organization Detail LastModifiedTime 10/15/2025 10/15/2025 shoulder 4 view [email or web address]=[email or web address] ajUqqY6eRcMHeia[id number] Not Available [facility] , [address],[facility] [address] [place] , [address], , 10/15/2025 14:34:16 10/15/2025 10/15/2025 shoulder 4 view [email or web address]=[email or web address] [id number] Not Available [facility] , [address],[facility] [address] , [place] , [address], , 10/15/2025 14:34:18 Result Notes Documentation Provider Name and Address Organization Details Recorded Time Xr, Shoulder, 2 Or More View : [email or web address] Encrypted=jsXeMbeBY4oOthJ Uv6g%6QERrpUrihz6kkiz%2Fg 4JTc2xlIntG7lYuPIgyqCo4Qk [id number] 3IV4NsT7hDKrXhWdQwfRfX Not Available [facility] 10/15/2025 14:34: 16 Xr, Shoulder, 2 Or More View : [email or web address]? 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 2023 James Whitfield PA-C [address], [place], [address], [facility] 4 06:51:09 Pain of right shoulder joint 3267679802062 9100 [facility] 4 09:54:39 Chronic pain of right upper limb 9515883237095 9108 Active 2023 James Whitfield PA-C [address], [place], [address], [facility] 4 11:12:47 Pain of left shoulder joint 9825754378070 9109 Active 2023 James Whitfield PA-C [address], [place], [address], [facility] 4 11:32:24 Pain of left shoulder region Active 2023 James Whitfield PA-C [address], [place], [address], [facility] 4 10:48:08 Neck pain 71424482 Active 2023 Mitch San MD [address], [place], [address], [facility] 5 10:59:05 Sprain of left acromioclav icular ligament 0149942373773 9103 Active 2023 James Whitfield PA-C [address], [place], [address], [facility] 4 11:19:57 Cervical spondylosis 114570719 Active 2024 Mitch San MD [address], [place], [address], [facility] 5 16:34:54 Strain of neck muscle 650710111 Active 2024 Mitch San MD [address], [place], [address], [facility] 5 16:34:56 Problem Notes None recorded. Procedures Surgical History Date Name Laterality Status Provider Name and Address Organization Details Recorded Time 5 38946 Therapeutic Exercise (1:1) completed Danuta Duran PTA [address], [place], [address], [facility] 01/06/2025 13:44:44 5 52270: Manual therapy completed MARIO [address], [place], [address], [facility] 01/06/2025 13:44:44 5 64543 Therapeutic Exercise (1:1) completed Danuta Duran PTA [address], [place], [address], [facility] 01/01/2025 07:13:25 5 84461: Manual therapy completed Danuta Duran, [employer] [address], [place], [address], [facility] 01/01/2025 07:13:25 5 00410 Therapeutic Exercise (1:1) completed Danuta Duran, [employer] [address], [place], [address], [facility] 12/30/2024 11:02:27 5 31273: Manual therapy completed Danuta Duran [employer] [address], [place], [address], [facility] 12/30/2024 11:02:27 5 18283 Therapeutic Exercise (1:1) cancelled Danuta Duran [employer] [address], [place], [address], [facility] 12/28/2024 06:41:48 5 21695: Manual therapy cancelled Danuta Duran PTA [address], [place], [address], [facility] 12/28/2024 06:41:48 5 23469 Therapeutic Exercise (1:1) cancelled Michael Thurston, PT [address], [place], [address], [facility] 12/24/2024 06:51:08 5 23418: Manual therapy cancelled Michael Thurston, PT [address], [place], [address], [facility] 12/24/2024 06:51:08 5 11089 Therapeutic Exercise (1:1) completed Michael Thurston, PT [address], [place], [address], [facility] 12/22/2024 12:29:47 5 92616: Manual therapy completed Michael Glendyek, PT [address], [place], [address], [facility] [place] [facility] 12/22/2024 12:29:56 5 51868 Therapeutic Exercise (1:1) cancelled Michael Glendyek, PT [address], [place], [address], [facility] 12/16/2024 17:30:22 5 10922: Low complexity PT Eval cancelled Michael Florek, PT [address], [place], [address], [facility] [place] [facility] 12/16/2024 17:30:22 5 09449 Therapeutic Exercise (1:1) completed Michaelmor Pikeek, PT [address], [place], [address], [facility] 12/02/2024 13:25:08 5 80365: Low complexity PT Eval completed Michael Glendyek, PT [address], [place], [address], [facility] [place] [facility] 12/02/2024 13:25:08 5 03496 Therapeutic Exercise (1:1) cancelled Michaelmor Pikeek, PT [address], [place], [address], [facility] 12/02/2024 05:35:53 5 41266: Hot or Cold Pack cancelled Michael Florek, PT [address], [place], [address], [facility] 12/02/2024 05:35:53 5 40409: Manual therapy cancelled Michael Florek, PT [address], [place], [address], [facility] 12/02/2024 05:35:53 4 99345 Therapeutic Exercise (1:1) cancelled Michael Florek, PT [address], [place], [address], [facility] 09/22/2024 06:41:31 4 80117: Hot or Cold Pack cancelled Michaelmor Thurston, PT [address], [place], [address], [facility] 09/22/2024 06:41:31 4 11202: Manual therapy cancelled Michael Thurston, PT [address], [place], [address], [facility] 09/22/2024 06:41:31 4 46420 Therapeutic Exercise (1:1) cancelled Michael Thurston, PT [address], [place], [address], [facility] 09/14/2024 12:23:31 4 20267: Hot or Cold Pack cancelled Michael Thurston, PT [address], [place], [address], [facility] 09/14/2024 12:23:31 4 47726: Manual therapy cancelled Michael Thurston, PT [address], [place], [address], [facility] 09/14/2024 12:23:31 4 82427 Therapeutic Exercise (1:1) cancelled Danuta Duran, [employer] [address], [place], [address], [facility] 09/08/2024 17:28:34 4 72964: Hot or Cold Pack cancelled Danuta Duran, [employer] [address], [place], [address], [facility] 09/08/2024 17:28:34 4 82178: Manual therapy cancelled Danuta Duran, [employer] [address], [place], [address], [facility] 09/08/2024 17:28:34 4 04339 Therapeutic Exercise (1:1) completed Danuta Duran [employer] [address], [place], [address], [facility] 09/01/2024 14:05:39 4 44225: Hot or Cold Pack completed Danuta Duran [employer] [address], [place], [address], [facility] 09/01/2024 14:05:39 4 96297: Manual therapy completed Danuta Duran [employer] [address], [place], [address], [facility] 09/01/2024 14:05:39 63048 Therapeutic Exercise (1:1) completed Danuta Duran [employer] [address], [place], [address], [facility] 08/31/2024 08:08:26 4 42261: Hot or Cold Pack completed Danuta Duran [employer] [address], [place], [address], [facility] 08/31/2024 08:08:26 4 93177: Manual therapy completed Danuta Duran [employer] [address], [place], [address], [facility] 08/31/2024 08:08:26 4 30893 Therapeutic Exercise (1:1) completed Danuta Duran, [employer] [address], [place], [address], [facility] 08/28/2024 07:12:27 4 87351: Hot or Cold Pack completed Danuta Duran, [employer] [address], [place], [address], [facility] 08/28/2024 07:12:27 4 08923: Manual therapy completed Danuta Duran PTA [address], [place], [address], [facility] 08/28/2024 07:12:27 4 60077 Therapeutic Exercise (1:1) completed Danuta Duran PTA [address], [place], [address], [facility] 08/24/2024 15:15:24 4 77225: Hot or Cold Pack completed Danuta Duran PTA [address], [place], [address], [facility] 08/24/2024 15:15:24 4 60782: Manual therapy completed Danuta Duran PTA [address], [place], [address], [facility] 08/24/2024 15:15:24 4 13491 Therapeutic Exercise (1:1) completed Danuta Duran PTA [address], [place], [address], [facility] 08/17/2024 06:50:55 4 66664: Hot or Cold Pack completed Danuta Duran PTA [address], [place], [address], [facility] 08/17/2024 06:50:55 4 26908: Manual therapy completed Danuta Duran PTA [address], [place], [address], [facility] 08/17/2024 06:50:55 53591 Therapeutic Exercise (1:1) cancelled Danuta Gardunoer [employer] [address], [place], [address], [facility] 08/11/2024 15:24:58 68807: Hot or Cold Pack cancelled Danuta Duran [employer] [address], [place], [address], [facility] 08/11/2024 15:24:58 4 50603: Manual therapy cancelled Danuta Duran PTA [address], [place], [address], [facility] 08/11/2024 15:24:58 4 47349 Therapeutic Exercise (1:1) cancelled Danuta Duran PTA [address], [place], [address], [facility] 08/09/2024 10:41:48 4 75468: Hot or Cold Pack cancelled Danuta Duran [employer] [address], [place], [address], [facility] 08/09/2024 10:41:48 4 93471: Manual therapy cancelled Danuta Duran PTA [address], [place], [address], [facility] 08/09/2024 10:41:48 4 95661 Therapeutic Exercise (1:1) completed Danuta Duran PTA [address], [place], [address], [facility] 08/06/2024 16:26:53 4 65467: Hot or Cold Pack completed Danuta DuranMARIO [address], [place], [address], [facility] 08/06/2024 16:26:53 4 28611: Manual therapy completed Danuta Gardunoricha [employer] [address], [place], [address], [facility] 08/06/2024 16:26:53 4 40206 Therapeutic Exercise (1:1) completed Danuta Duran [employer] [address], [place], [address], [facility] 08/04/2024 14:07:25 4 96905: Hot or Cold Pack completed Danuta Duran, [employer] [address], [place], [address], [facility] 08/04/2024 14:07:25 4 77311: Manual therapy completed Danuta Duran, [employer] [address], [place], [address], [facility] 08/04/2024 14:07:25 4 97747 Therapeutic Exercise (1:1) cancelled Danuta Duran, [employer] [address], [place], [address], [facility] 07/31/2024 16:29:11 4 10556: Hot or Cold Pack cancelled Danuta Duran, [employer] [address], [place], [address], [facility] 07/31/2024 16:29:11 4 07465: Manual therapy cancelled Danuta Duran, [employer] [address], [place], [address], [facility] 07/31/2024 16:29:11 4 05420 Therapeutic Exercise (1:1) completed Danuta Duran, [employer] [address], [place], [address], [facility] 07/29/2024 12:20:26 4 90385: Hot or Cold Pack completed Danuta Duran, [employer] [address], [place], [address], [facility] 07/29/2024 12:20:26 4 20860: Manual therapy completed Danuta Duran, [employer] [address], [place], [address], [facility] 07/29/2024 12:20:26 4 01043 Therapeutic Exercise (1:1) completed Danuta Duran, [employer] [address], [place], [address], [facility] 07/24/2024 21:21:57 4 74562: Hot or Cold Pack completed Danuta Duran [employer] [address], [place], [address], [facility] 07/24/2024 21:21:57 4 79420: Manual therapy completed Danuta Duran PTA [address], [place], [address], [facility] 07/24/2024 21:21:57 4 01754 Therapeutic Exercise (1:1) completed Danuta Duran PTA [address], [place], [address], [facility] 07/21/2024 15:20:38 4 17449: Hot or Cold Pack completed Danuta Duran PTA [address], [place], [address], [facility] 07/21/2024 15:20:38 4 39018: Manual therapy completed Danuta Duran PTA [address], [place], [address], [facility] 07/21/2024 15:20:38 4 22737 Therapeutic Exercise (1:1) completed Danuta Duran PTA [address], [place], [address], [facility] 07/18/2024 15:45:22 4 29017: Hot or Cold Pack completed Danuta Duran PTA [address], [place], [address], [facility] 07/18/2024 15:45:22 4 49475: Manual therapy completed Danuta Duran PTA [address], [place], [address], [facility] 07/18/2024 15:45:22 4 04269 Therapeutic Exercise (1:1) completed Danuta Duran [employer] [address], [place], [address], [facility] 07/13/2024 15:17:27 4 28213: Hot or Cold Pack completed Danuta Duran [employer] [address], [place], [address], [facility] 07/13/2024 15:17:27 4 70201: Manual therapy completed Danuta Duran [employer] [address], [place], [address], [facility] 07/13/2024 15:17:27 4 89187 Therapeutic Exercise (1:1) cancelled Michael Thurston, PT [address], [place], [address], [facility] 07/16/2024 06:56:14 4 44893: Hot or Cold Pack cancelled Michael Thurston, PT [address], [place], [address], [facility] 07/16/2024 06:56:14 4 42293: Manual therapy cancelled Michael Thurston, PT [address], [place], [address], [facility] 07/16/2024 06:56:14 4 17500 Therapeutic Exercise (1:1) completed Danuta Duran, [employer] [address], [place], [address], [facility] 07/08/2024 12:48:52 4 33037: Hot or Cold Pack completed Danuta Duran, [employer] [address], [place], [address], [facility] 07/07/2024 16:05:32 4 32572: Manual therapy completed Danuta Duran [employer] [address], [place], [address], [facility] 07/07/2024 16:05:32 4 69273 Therapeutic Exercise (1:1) completed Danuta Duran PTA [address], [place], [address], [facility] 07/03/2024 12:00:20 4 71001: Hot or Cold Pack completed Danuta Duran [employer] [address], [place], [address], [facility] 07/03/2024 12:00:20 4 61358: Manual therapy completed Danuta Duran PTA [address], [place], [address], [facility] 07/03/2024 12:00:20 4 61703 Therapeutic Exercise (1:1) completed Danuta Duran PTA [address], [place], [address], [facility] 06/30/2024 17:33:45 4 86737: Hot or Cold Pack completed Danuta Duran PTA [address], [place], [address], [facility] 06/30/2024 17:33:45 4 89528: Manual therapy completed Danuta Duran PTA [address], [place], [address], [facility] 06/30/2024 17:33:45 4 19778 Therapeutic Exercise (1:1) completed Danuta Duran [employer] [address], [place], [address], [facility] 06/28/2024 18:37:48 4 14589: Hot or Cold Pack completed Danuta Duran [employer] [address], [place], [address], [facility] 06/28/2024 18:37:48 4 81738: Manual therapy completed Danuta Duran PTA [address], [place], [address], [facility] 06/28/2024 18:37:48 4 03846 Therapeutic Exercise (1:1) completed Danuta Duran PTA [address], [place], [address], [facility] 06/24/2024 14:43:05 4 72853: Hot or Cold Pack completed Danuta Duran PTA [address], [place], [address], [facility] 06/24/2024 14:43:05 4 11321: Manual therapy completed Danuta Duran PTA [address], [place], [address], [facility] 06/24/2024 14:43:05 4 81549 Therapeutic Exercise (1:1) completed Michael Thruston PT [address], [place], [address], [facility] 06/23/2024 05:24:29 4 99454: Hot or Cold Pack completed Michael Thurston PT [address], [place], [address], [facility] 06/23/2024 05:22:26 4 45658: Manual therapy completed Michael Thurston PT [address], [place], [address], [facility] 06/23/2024 05:24:26 4 80480 Therapeutic Exercise (1:1) completed Danuta Duran PTA [address], [place], [address], [facility] 06/17/2024 12:59:58 4 14202: Hot or Cold Pack completed Danuta Duran, [employer] [address], [place], [address], [facility] 06/17/2024 12:59:58 4 61203: Manual therapy completed Danuta Duran, [employer] [address], [place], [address], [facility] 06/17/2024 12:59:58 4 21966 Therapeutic Exercise (1:1) completed Danuta Duran, [employer] [address], [place], [address], [facility] 06/15/2024 15:18:55 4 93907: Hot or Cold Pack completed Danuta Duran, [employer] [address], [place], [address], [facility] 06/15/2024 15:18:55 4 21240: Manual therapy completed Danuta Duran, [employer] [address], [place], [address], [facility] 06/15/2024 15:18:55 4 94715 Therapeutic Exercise (1:1) completed Michael Thurston, PT [address], [place], [address], [facility] 06/11/2024 08:35:04 4 42005: Hot or Cold Pack completed Michael Thurston, PT [address], [place], [address], [facility] 06/11/2024 08:35:04 4 43960: Manual therapy completed Michael Thurston, PT [address], [place], [address], [facility] 06/11/2024 08:35:04 4 00499 Therapeutic Exercise (1:1) completed Michael Thurston, PT [address], [place], [address], [facility] 06/08/2024 06:41:08 4 33665: Hot or Cold Pack completed Michael Glendyek, PT [address], [place], [address], [facility] 06/08/2024 06:41:08 4 45710: Manual therapy completed Michaelmor Pikeek, PT [address], [place], [address], [facility] 06/08/2024 06:41:08 4 24420 Therapeutic Exercise (1:1) cancelled Michael Karena, PT [address], [place], [address], [facility] 06/03/2024 07:05:05 4 22952: Hot or Cold Pack cancelled Michael Glendyek, PT [address], [place], [address], [facility] 06/03/2024 07:05:05 4 67859: Manual therapy cancelled Michaelmor Thurston, PT [address], [place], [address], [facility] 06/03/2024 07:05:05 4 96433 Therapeutic Exercise (1:1) completed Michaelmor Thurston, PT [address], [place], [address], [facility] 06/01/2024 08:17:00 4 13093: Hot or Cold Pack completed Michael Karena, PT [address], [place], [address], [facility] 06/01/2024 08:17:00 4 18740: Manual therapy completed Michaelmor Thurston, PT [address], [place], [address], [facility] 06/02/2024 06:13:36 4 10071 Therapeutic Exercise (1:1) completed Danuta Duran [employer] [address] [facility], [place], [address], [facility] 05/26/2024 13:25:19 4 73986: Hot or Cold Pack completed Danuta Duran [employer] [address], [place], [address], [facility] 05/26/2024 13:25:13 4 11471: Manual therapy completed Danuta Duran [employer] [address], [place], [address], [facility] 05/26/2024 13:25:21 4 04682 Therapeutic Exercise (1:1) completed Michael Thurston, PT [address], [place], [address], [facility] 05/15/2024 14:11:41 4 83931: Low complexity PT Eval completed Michael Thurston, PT [address], [place], [address], [facility] 05/15/2024 14:11:47 4 Shoulder Surgery completed HANNAH [place] [facility] 02/18/2025 08:28:24 4 34114 Therapeutic Exercise (1:1) completed LILIANA TobarT [address], [place], [address], [facility] 02/11/2024 10:54:58 4 53237: Manual therapy completed LILIANA TobarT [address], [place], [address], [facility] 02/11/2024 10:57:19 Ankle/Foot Surgery completed ROSALIA HERR [facility] 04/17/2024 13:42:05 Other completed ROSALIA HERR [facility] 04/17/2024 13:42:05 Imaging Results Imaging Date Name Status LastModifiedBy Organiza tion Detail LastModifiedTime 10/15/2025 shoulder 4 view completed Not Available [facility] , [address] , [place] , [address], , 10/15/2025 14:34:16 10/15/2025 shoulder 4 view completed Not Available [facility] , [address] , [place] , [address], [place] , 10/15/2025 14:34:18 Procedure Notes None recorded. Medical Equipment None Reported. Allergies Allergen ID Allergen Name Allergen Category Reaction Reaction Severity Criticality Documentation Date Start Date Code Code System Note Provider Name and Address Organization Details Recorded Time [id number] methocarb martín medicatio n Not available Not available Not available 10/15/2025 6845 RxNorm Not Available adalberto [employer] - prod 5 04:23:24 515457 morphine medicatio n Not available Not available low 10/15/2025 7052 RxNorm Not Available adalberto - External Data Service - prod 5 04:23:24 511352 Robaxin medicatio n Not available Not available Not available 10/15/2025 42377 5 RxNorm Not Available adalberto - [employer] - prod 5 04:24:09 805908 amoxicill in medicatio n Not available Not available Not available 10/15/20252018 723 RxNorm Dizzy , nause a, vomit Not Available adalberto - External Data Service - prod 5 04:24:10 556660 gabapenti n medicatio n Not available Not available Not available 10/15/20252017 31581 RxNorm Menta l insta bilit y Not Available [employer] External Data Service - prod 5 04:24:10 21800 morphine sulfate medicatio n Not available Not available Not available 01/27/20242022 26007 RxNorm Not Available [facility] 4 12:33:19 Medications Name Authored On Sig Start Date Stop Date Status Note Indication Fill Status Repeat Number Dispense Quantity LastModified by Organization Details LastModified Time oxyco done HCl-o xycod one-A SA 4 17:35:06 TAKE 1 TAB QID PRNM UST LAST 2 WEEK S 06/27 aborted Statu s: 'Disc ontin ued'; Not Available Not availab le 0 Not Available Not Available [facility] 01/27/2024 17:35:06 pseud nohemy lovell in ER 80-70 0 mg table t,ext ended relea se 4 17:35:06 Perc ocet 5-32 5MG Tabl et four time s a day 06/27 aborted Statu s: 'Disc ontin ued'; Not Available Not availab le 0 Not Available Not Available [facility] 01/27/2024 17:35:06 baclo fen 5 mg table t 4 15:32:45 TAKE 1 TABL ET BY TRA MCINTOSH E TIME S A DAY NEED ED FOR MODE RATE PAIN FOR 14 DAYS 03/27 aborted Not Available Not availab le 0 Not Available HANNAH [place] [facility] 03/27/2024 13:50:50 Binax NOW COVID -19 Ag Self Test kit 4 15:32:45 TEST DIRE CTED TODA Y 03/27 aborted Not Available Not availab le 0 Not Available HANNAH [place] [facility] 03/27/2024 13:50:55 bhargav calci ferol (tyson min D3) 25 mcg (1,00 0 unit) table t 4 15:32:45 TAKE 1 TABL ET BY TRA Fuentes EVER Y DAY IN THE MORN ING 03/27 aborted Not Available Not availab le 0 Not Available HANNAH [facility] 03/27/2024 13:50:59 fluti fariba e propi kaial 50 mcg/a ctuat ion nasal spray ,susp ensio n 4 15:32:45 USE 2 SPRA YS IN EACH NOST RIL KEN Y 03/27 aborted Not Available Not availab le 0 Not Available HANNAH FRANCESCA [facility] 03/27/2024 13:51:05 hydro xyzin e HCl 50 mg table t 4 15:32:45 PLEA SE SEE ERMIAS CHED FOR DETA ILED DIRE CTIO NS 03/27 aborted Not Available Not availab le 0 Not Available HANNAH [facility] 03/27/2024 13:51:08 ibupr ofen 800 mg table t 4 15:32:45 TAKE 1 TABL ET BY MOUT H THRE E TIME S A DAY NEED ED FOR PAIN FOR 10 DAYS 03/27 aborted Not Available Not availab le 0 Not Available HANNAH [place] [facility] 03/27/2024 13:51:10 predn isone 10 mg table t 4 15:32:45 PLEA SE SEE ERMIAS CHED FOR DETA ILED DIRE CTIO NS 03/27 aborted Not Available Not availab le 0 Not Available HANNAH [place] [facility] 03/27/2024 13:51:53 oxyco done 5 mg capsu le 4 15:32:45 TAKE 1 CAPS ULE BY MOUT H EVER Y 6 HOUR S NEED ED FOR PAIN FOR 3 DAYS 04/15 aborted Not Available Not availab le 0 Not Available ROSALIA HERR [facility] 04/17/2024 13:42:09 aspir in 325 mg table t 4 13:25:47 TAKE 1 TABL ET BY MOUT H EVER Y DAY FOR 14 DAYS 07/02 aborted Not Available Not availab le 0 Not Available HANNAH [place] [facility] 07/02/2024 13:08:40 docus ate sodiu m 100 mg capsu le 4 13:25:47 TAKE 1 CAPS ULE BY MOUT H EVER Y DAY NEED ED 07/02 aborted Not Available Not availab le 0 Not Available HANNAH [facility] 07/02/2024 13:08:46 Lidoc spenser Visco us 2 % mucos al solut ion 4 14:37:56 PLEA SE SEE ERMIAS CHED FOR DETA ILED DIRE CTIO NS 07/02 aborted Not Available Not availab le 0 Not Available HANNAH [facility] 07/02/2024 13:08:49 sucra lfate 100 mg/mL oral suspe nsion 4 14:37:56 TAKE 2.5 ML 4 TIME S PER DAY FOR 10 DAYS 07/02 aborted Not Available Not availab le 0 Not Available HANNAH [facility] 07/02/2024 13:09:07 oxyco done 5 mg table t 4 13:33:31 TAKE 1 TABL ET BY TRA Fuentes EVER Y DAY NEED ED FOR 7 DAYS 07/02 aborted Not Available Not availab le 0 Not Available HANNAH [facility] 07/02/2024 13:09:11 oflox acin 0.3 % eye drops 4 14:37:56 07/02 aborted Not Available Not availab le 0 Not Available HANNAH [place] [facility] 07/02/2024 13:09:15 cyclo benza eliud 5 mg table t 4 16:34:23 08/17 aborted Not Available Not availab le 0 Not Available HANNAH [facility] 08/17/2024 09:55:51 albut paul sulfa te HFA 90 mcg/a ctuat ion aeros ol inhal er 4 05:15:43 active Not Available Not availab le 0 Not Available Not Available [facility] 11/19/2024 05:15:43 tizan idine 4 mg table t 5 06:04:24 TAKE 1 TABL ET BY TRA WEBSTER TLY NEED ED FOR ERIN RE MUSC LE SPAS MS active Not Available Not availab le 0 Not Available Not Available [facility] 12/02/2024 06:04:24 amoxi cilli n 875 mg-po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
--- OUTSIDE RECORDS SUMMARY | 2025-11-21 17:50 | XMS_ITS | Clinical Summary ---
Author Organization [facility] Prior to 04/24/25 Address [address] [place] [address] Care Team Providers Care Associate Engineer Name Role Phone Vilma Madsen Primary Care [...] age to complete this topic Care Teams Associate Engineer Relationship Specialty Start Date End Date Vilma Madsen [address] [place] [address] PCP - General Internal Medicine 02/18/19
--- OUTSIDE RECORDS SUMMARY | 2025-11-21 17:50 | XMS_ITS | Encounter Summary ---
Author Organization [facility] Address [address] [place] [address] Phone Care Team Providers Care Call Manager Name Role Phone Inna Lutz MD Primary Care Provider [phone] Encounter Details Date Type Department Care Team (Late st Contact Info) Description 01/17/2022 Procedure Pass [facility] Endoscopy Admitting Dept Virtual Department [address] [place] [address] Social History Tobacco Use Types Packs/Day Years [...] on filedocumented in this encounter Care Teams Call Manager Relationship Specialty Start Date End Date Inna Lutz MD [address] [place] [phone] PCP - General Internal Medicine 11/08/21 documented as of this encounter Additional Source Comments The information contained in this document represents components of the legal health record. It is not the complete legal health record.[facility]
--- OUTSIDE RECORDS SUMMARY | 2025-11-21 17:50 | XMS_ITS | Encounter Summary ---
Author Organization [facility] Address [address] [place] [address] Phone Care Team Providers Care Patrol Supervisor Name Role Phone Inna Lutz MD Primary Care Provider [phone] Encounter Details Date Type Department Care Team (Late st Contact Info) Description 11/09/2021 Transcribe Orders Virtual Department [address] [place] [address] Barb Coleman NP [address] [place] [address] Social History Tobacco Use Types Packs/Day Years [...] filedocumented in this encounter Care Teams Patrol Supervisor Relationship Specialty Start Date End Date Inna Lutz MD [address] [place] [address] PCP - General Internal Medicine 11/08/21 documented as of this encounter Additional Source Comments The information contained in this document represents components of the legal health record. It is not the complete legal health record.[facility]
--- OUTSIDE RECORDS SUMMARY | 2025-11-21 17:50 | XMS_ITS | Clinical Summary ---
Author Organization [facility] Address [address] [place] [address] Care Team Providers Care Cordwood Cutter Name Role Phone Vilma Madsen MD Primary Care Provider [phone] Surgical History Surgery Date Site/Laterality Comments LEG SURGERY Left PROCEDURE: HISTORICAL LEG SURGERY; COMMENT: delayed union, 14 surgeries lower leg. [facility] Medical History Medical History Date Comments [...] age to complete this topic Care Teams Cordwood Cutter Relationship Specialty Start Date End Date Vilma Madsen MD PCP - General Internal Medicine 09/20/18
--- OUTSIDE RECORDS SUMMARY | 2025-11-21 17:50 | XMS_ITS | Data Portability ---
Author Organization [place] - [facility], Allergy Address [address] [address] Care Team Providers Care Seasonal Recruiter Name Role Phone SABRA MEYER Primary Care [...] this. 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; Note: Date Diagnosed: 10/23/2021 1:50 PM (M95.0) Not Available [facility] 4 02:46:42 Migraine 19077833 Active 2020 Other migraine, not intractabl e, without status migrainosu s; Note: Date Diagnosed: 10/23/2021 1:50 PM (G43.809) Not Available [facility] 4 02:46:39 Deviated nasal septum 737570043 Active 2020 Deviated nasal septum; Note: Date Diagnosed: 10/23/2021 1:50 PM (J34.2) Not Available [facility] 4 02:46:40 Nasal obstructi on 465389312 Active 2024 CEZAR LIM MD [address] [place] [address], [place], [phone] , [facility] 5 12:24:33 Hypertrop hy of nasal turbinate s 66506897 Active 2024 CEZAR LIM MD [address] [place] [address], [place], [phone] , [facility] 5 12:24:53 Problem Notes None recorded. Medical Equipment None Reported. Allergies Allergen ID Allergen Name Allergen Category Reaction Reaction Severity Criticality Documentation Date Start Date Code Code System Note Provider Name and Address Organization Details Recorded Time 115002 Robaxin medicatio n other Not available Not available 04/07/2024 5 RxNorm React ion: Unkno wn; Not Available [facility] 4 01:20:02 Medications Name Sig Start Date [...] Updated DateTime 12/30/2024 157.48 cm 22.9 kg/m2 56391.05 g Qian Montes [place] - [facility] 12/30/2024 13:52:43 Date Recorded Body height Body mass index (BMI) Body weight Provider Name and Address Organization Details Last Updated DateTime 02/02/2025 157.48 cm 22.9 kg/m2 58146.05 g RONNIE CRONIN [place] - [facility] 02/02/2025 09:46:30 Social History None recorded. Functional Status None recorded. Mental Status None recorded. Family History Nothing Reported. Medical History No medical history recorded. Past Encounters Encounter ID Performer Location Encounter Start Date Encounter Closed Date Diagnosis/Indication Diagnosis SNOMED-CT Code Diagnosis ICD10 Code Diagnosis IMO Codes Diagnosis Note [id number] OSMAN IBRAHIM PA-C [facility] [address] [address] 12/30/2024 13:46:16 12/30/2024 14:09:56 Deviated nasal septum 866900802 J34.2 Acquired d eformity of nose 66238933 M95.0 [id number] CEZAR LIM MD [facility] [address] [place] [address] 02/02/2025 09:37:59 02/02/2025 11:58:42 Nasal obstruction 722003619 J34.89 Deviated nasal septum 12 3802000 J34.2 Hypertroph y of nasal turbinates 26443429 J34.3 Health Concerns Section Related Observation LastModified by Organization Detai ls LastModified Time None Recorded Concern Status LastModified by Organization Details LastModified Time None Recorded Advance Directives Directive None Recorded Payers Insurance Date Sequence Insurance Name Policy Number Policy Robles Covered Member ID Robles Member ID Guarantor Name 03/12/2025 1 [employer] BLUE [employer] - FEP [id number] Tim mckeon [id number] Tim Tavares 03/18/2025 1 [place] [employer] [id number] Tim mckeon [id number] Tim Tavares Notes Date Note Type Note [...] moe [place] - [facility] 12/30/2024 14:22:45 02/02/2025 text/html ROS as noted [...] marijuana use Post office CEZAR LIM MD [address] [place] [address], [phone], [facility] - [facility] 02/02/2025 12:29:20
--- OUTSIDE RECORDS SUMMARY | 2025-11-21 17:50 | XMS_ITS | Data Portability ---
Author Organization [place] - [facility], [facility] [place] Address [address] [place] [address] Care Team Providers Care Beeswax Bleacher Name Role Phone Sabra Sharma Primary Care Provider Assessment No assessment recorded. Plan of Treatment Reminders Order Date Submit Date Provider Name Organization Details Last Modified By Last Modified Time Details Appointments RECHEC K 15 2025 03:30P M Vandana Padgett MD Not available Not available Not available Lab None record ed. Referral physic al therap ist referr al 2024 14:18: 18 025 Vandana Padgett MD Not available [facility] 08/11/2025 15:16:42 physic al therap ist referr al 2024 10:11: 46 025 Vandana Padgett MD Not available [facility] 06/08/2025 13:58:04 physic al therap ist referr al 2024 16:02: 21 025 Vandana Padgett MD Not available [facility] 02/08/2025 08:56:53 Procedures None record ed. Surgeries None record ed. Imaging XR, should er, 2 or more view 2024 14:25: [address] [facility] [address], [place], [address], [facility] 10/26/2025 14:10:04 XR, should er, 2 or more view 2024 13:35: 40 025 Vandana Padgett MD [facility] [address], [place], [address], [facility] 08/11/2025 15:16:42 XR, should er, 2 or more view 2024 09:32: 51 025 Vandana Padgett MD [facility] [address], [place], [address], [facility] 03/18/2025 08:55:43 MedicationOrders None record ed. VaccineOrders None record ed. Patient TargetsNo targets recorded. Patient InstructionsNo instructions recorded. Reason for Referral Physical Therapist Referral for Pain of right shoulder joint SURGERY: S/p Right Latarjet (coracoid transfer procedure) 04/24/2024 2-3x/week x 8 weeks Evaluate and Treat Goal: - Decrease pain/swelling - Increase range of motion - Increase strength and/or endurance - Prepare for return to work Recommended Modalities: - Heat prior to stretching - Ice at the end of the session - Additional modalities prn, but emphasis should be on manual therapy Precautions: WBAT, no motion restrictions Therapeutic Exercise: - Passive, active-assist, active range of motion as tolerated, focusing on gradual progression over time - Scapular shrugs/retractions - Submaximal isometric rotator cuff strengthening - Build to theraband and weight resistance as able - Incorporate work-specific movements and tasks in preparation for return to work Emphasize importance of home program, 2x/day Referring Physician: Vandana Padgett, Orthopedic Surgery, Encounter Date: 08/06/2025 Physical Therapist Referral for Follow-up orthopedic assessment SURGERY: Right shoulder Latarjet, open biceps tenodesis, 04/24/2024 2-3x/week x 6 weeks Evaluate and Treat Goal: - Decrease pain/swelling - Increase range of motion - Increase strength and/or endurance - Prepare for return to work Recommended Modalities: - Heat prior to stretching - Ice at the end of the session - Additional modalities prn, but emphasis should be on manual therapy Precautions: WBAT, no motion restrictions Therapeutic Exercise: - Passive, active-assist, active range of motion as tolerated, focusing on gradual progression over time - Scapular shrugs/retractions - Submaximal isometric rotator cuff strengthening - Build to theraband and weight resistance as able - Incorporate work-specific movements and tasks in preparation for return to work Emphasize importance of home program, 2x/day Referring Physician: Vandana Padgett, Orthopedic Surgery, Encounter Date: 05/31/2025 Physical Therapist Referral for Follow-up orthopedic assessment SURGERY: Right Latarjet, open biceps tenodesis, 04/24/2024 2-3x/week x 6 weeks Evaluate and Treat Goal: - Decrease pain/swelling - Increase range of motion - Increase strength and/or endurance - Prepare for return to work Recommended Modalities: - Heat prior to stretching - Ice at the end of the session - Additional modalities prn, but emphasis should be on manual therapy Precautions: WBAT, no motion restrictions Therapeutic Exercise: - Passive, active-assist, active range of motion as tolerated, focusing on gradual progression over time - Scapular shrugs/retractions - Submaximal isometric rotator cuff strengthening - Build to theraband and weight resistance as able - Incorporate work-specific movements and tasks in preparation for return to work Emphasize importance of home program, 2x/day Referring Physician: Vandnaa Padgett, Orthopedic Surgery, Encounter Date: 01/22/2025 Results Created Date Observation Date Name Description Value Unit Range Abnormal Flag Specimen Type Note LastModifiedBy Organization Detail LastModifiedTime 02/02/2025 02/02/2025 No observation recorded. CAROLYN RENNER Not Available 02/02/2025 13:37:42 03/05/2025 03/05/2025 shoulder 4 view [email or web address] ncrypted=shAa JgeXQ2vRijEEi 6g%2BXZwaYqta q0bqfl%2Fg9IQ u4mrWkdF2dLuI LhkpFr4KrRGIb TzdPKN0lKcUXl ho05b6784YR1J qYnqMWaOhKiQt rMwF Not Available [facility] , [address],[facility] [address] , [place] , [address], , 03/05/2025 09:39:05 03/05/2025 03/05/2025 shoulder 4 view [email or web address] ncrypted=shAa GcaUX7yHlfBMm 6g%2BXZwaYqta q0bqfl%2Fg9IQ q5btWacR5jCfB QqibIn1JtESCc BhoGXH1rMzHRd sv99p1706UD5I qYnqMWaOhKiQt rMwF Not Available [facility] , [address],[facility] [address] , [place] , [address], , 03/05/2025 09:39:06 08/06/2025 08/06/2025 shoulder 4 view [email or web address] ncrypted=shAa TxnJL1gXbqQPq 6g%2BXZwaYqta q0bqfl%2Fg9IQ y6vlXtuF7yBgM UdspUp2DgRYAo MezEQL5uAsMNm ec00t3688UH9A maF7GPPNzVmEc rMwF Not Available [facility] , [address] [place] [address] , [place] , [address], , 08/06/2025 13:45:22 08/06/2025 08/06/2025 shoulder 4 view [email or web address] ncrypted=shAa UrrUB4qQunDMy 6g%2BXZwaYqta q0bqfl%2Fg9IQ g4oyQkiW2pCtT CdmrOz1BlKGHe XdyWDJ9hRyEDs cd50p0247HZ1P isQ2GEEQdThKs rMwF Not Available [facility] , [address],[facility] [address] , [place] , [address], , 08/06/2025 13:45:23 10/15/2025 10/15/2025 shoulder 4 view [email or web address] ncrypted=Casey OrellanaYktOL0lOzcZNs 6g%2BXZwaYqta q0bqfl%2Fg9IQ h2ciZifN0wZgU DibkZw6VfKYJz JglDRV3nSdFXh dc25x8833CZ3H qH5pGVpHvGgZr rMwF Not Available [facility] , [address],[facility] [address] , [place], [place] , [address] , 10/15/2025 14:34:16 10/15/2025 10/15/2025 shoulder 4 view [email or web address] ncrypted=Casey OrellanaMrfZF5vBvaJDs 6g%2BXZwaYqta q0bqfl%2Fg9IQ u1roWuqH0jDrO UjgqCy8QdRLAv ArsTTO4cVcNDn cs20n5510KV3S oL2eVRvWuXiTx rMwF Not Available [facility] , [address],[facility] [address] , [place] , [address], , 10/15/2025 14:34:18 Result Notes Documentation Provider Name and Address Organization Details Recorded Time Xr, Shoulder, 2 Or More View : [email or web address] Encrypted=whVoUcgMI4rNjiS Uv6g%6RYLwuJntqe6okus%2Fg 5WDz7mnJypV1vZqNIitzAg4Tz CQGlLwbGCA9sJiHMctc72s786 0DM1JrRxcUTnIeAqZctEvC Not Available [facility] 03/05/2025 09:39: 05 Xr, Shoulder, 2 Or More View : [email or web address]? Encrypted=yqFnZdlJR1oYodK Uv6g%0ERHamGiklg2rfvo%2Fg 6DCu1veTkqV7pXhXHvjiSr6Nu DOOpKrzKHN7tOsEVgdq40g589 7NC1OdEsyEDuYdDkTnzBxH Not Available [facility] 03/05/2025 09:39: 06 Xr, Shoulder, 2 Or More View : [email or web address] Encrypted=gyQcNqgOL2bYfkL Uv6g%9CPSgnJqufx6riwm%2Fg 4BYz7foPnyL8cMkPPzxzNf7Lx WJIaFmlBVC0lJfYEnzz54p148 0BG9IquA8NFUShDyPzwVdR Not Available [facility] 08/06/2025 13:45: 22 Xr, Shoulder, 2 Or More View : [email or web address]? Encrypted=juIqJgdKD3qYqpH Uv6g%2MAMkwBxrgw0bagq%2Fg 6QFw2dnDwcX9hEyAOvscZe2Fh CBGwZdcQTF7vIoWDxhp42b104 8OO4GajZ9RGTRfKhXgcGoB Not Available [facility] 08/06/2025 13:45: 23 Xr, Shoulder, 2 Or More View : [email or web address] Encrypted=zoZmNqlSZ4mLawU Uv6g%9GAMonOkjuk2dntp%2Fg 5GRd2pdGzqQ9bMfNKhzoDv7Ik ZIZtJllTPK0ySjFMuxc20z358 8TR1YlY8uOLcKvHeSsmWyA Not Available [facility] 10/15/2025 14:34: 16 Xr, Shoulder, 2 Or More View : [email or web address] 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 4 09:54:39 Chronic pain of right upper limb 1728959134309 9108 Active 2023 James Whitfield PA-C [address], [place], [address], [facility] 4 11:12:47 Pain of left shoulder joint 0883510577377 9109 Active 2023 James Whitfield PA-C [address], [place], [address], [facility] 4 11:32:24 Pain of left shoulder region Active 2023 James Whitfield PA-C [address], [place], [address], [facility] 4 10:48:08 Neck pain 05666760 Active 2023 Mitch San MD [address], [place], [address], [facility] 5 10:59:05 Sprain of left acromioclav icular ligament 5052916779242 9103 Active 2023 James Whitfield PA-C [address], [place], [address], [facility] 4 11:19:57 Cervical spondylosis 729144795 Active 2024 Mitch San MD [address], [place], [address], [facility] 5 16:34:54 Strain of neck muscle 958334255 Active 2024 Mitch San MD [address], [place], [address], [facility] 16:34:56 Problem Notes None recorded. Procedures Surgical History Date Name Laterality Status Provider Name and Address Organization Details Recorded Time 5 12627 Therapeutic Exercise (1:1) completed Danuta Duran PTA [address], [place], [address], [facility] 01/06/2025 13:44:44 5 83240: Manual therapy completed Danuta Duran PTA [address], [place], [address], [facility] 01/06/2025 13:44:44 5 45823 Therapeutic Exercise (1:1) completed Danuta Duran PTA [address], [place], [address], [facility] 01/01/2025 07:13:25 5 38372: Manual therapy completed MARIO [address], [place], [address], [facility] 01/01/2025 07:13:25 5 39567 Therapeutic Exercise (1:1) completed Danuta Duran PTA [address], [place], [address], [facility] 12/30/2024 11:02:27 5 70624: Manual therapy completed Danuta Duran PTA [address], [place], [address], [facility] 12/30/2024 11:02:27 5 04777 Therapeutic Exercise (1:1) cancelled Danuta Duran, STAFF ENGINEER [address], [place], [address], [facility] 12/28/2024 06:41:48 5 90928: Manual therapy cancelled Danuta Duran, STAFF ENGINEER [address], [place], [address], [facility] 12/28/2024 06:41:48 5 50479 Therapeutic Exercise (1:1) cancelled Michael Karena, PT [address], [place], [address], [facility] 12/24/2024 06:51:08 5 85253: Manual therapy cancelled Michael Karena, PT [address], [place], [address], [facility] 12/24/2024 06:51:08 5 38468 Therapeutic Exercise (1:1) completed Michael Thurston, PT [address], [place], [address], [facility] 12/22/2024 12:29:47 5 48422: Manual therapy completed Michael Thurston, PT [address], [place], [address], [facility] 12/22/2024 12:29:56 5 25193 Therapeutic Exercise (1:1) cancelled Michael Thurston, PT [address], [place], [address], [facility] 12/16/2024 17:30:22 5 81351: Low complexity PT Eval cancelled Michael Thurston, PT [address], [place], [address], [facility] 12/16/2024 17:30:22 5 42216 Therapeutic Exercise (1:1) completed Michael Florek, PT [address], [place], [address], [facility] 12/02/2024 13:25:08 5 64786: Low complexity PT Eval completed Michaelmor Thurston, PT [address], [place], [address], [facility] 12/02/2024 13:25:08 5 61587 Therapeutic Exercise (1:1) cancelled Michaelmor Pikeek, PT [address], [place], [address], [facility] 12/02/2024 05:35:53 5 86680: Hot or Cold Pack cancelled Michaelmor Thurston, PT [address], [place], [address], [facility] 12/02/2024 05:35:53 5 78382: Manual therapy cancelled Michaelmor Thurston, PT [address], [place], [address], [facility] 12/02/2024 05:35:53 4 33153 Therapeutic Exercise (1:1) cancelled Michaelmor Thurston, PT [address], [place], [address], [facility] 09/22/2024 06:41:31 4 89537: Hot or Cold Pack cancelled Michaelmor Pikeek, PT [address], [place], [address], [facility] 09/22/2024 06:41:31 4 64567: Manual therapy cancelled Michaelmor Pikeek, PT [address], [place], [address], [facility] 09/22/2024 06:41:31 4 81181 Therapeutic Exercise (1:1) cancelled Michael Glendyek, PT [address], [place], [address], [facility] 09/14/2024 12:23:31 4 91627: Hot or Cold Pack cancelled Michael Karena, PT [address], [place], [address], [facility] 09/14/2024 12:23:31 4 44266: Manual therapy cancelled Michael Karena, PT [address], [place], [address], [facility] 09/14/2024 12:23:31 4 12838 Therapeutic Exercise (1:1) cancelled Danuta Duran STAFF ENGINEER [address], [place], [address], [facility] 09/08/2024 17:28:34 4 55284: Hot or Cold Pack cancelled Danuta Duran STAFF ENGINEER [address], [place], [address], [facility] 09/08/2024 17:28:34 4 37320: Manual therapy cancelled Danuta Duran STAFF ENGINEER [address], [place], [address], [facility] 09/08/2024 17:28:34 4 65534 Therapeutic Exercise (1:1) completed Danuta Duran STAFF ENGINEER [address], [place], [address], [facility] 09/01/2024 14:05:39 4 88049: Hot or Cold Pack completed Danuta Duran STAFF ENGINEER [address], [place], [address], [facility] 09/01/2024 14:05:39 4 10380: Manual therapy completed Danuta Duran STAFF ENGINEER [address], [place], [address], [facility] 09/01/2024 14:05:39 4 73884 Therapeutic Exercise (1:1) completed Danuta Duran, STAFF ENGINEER [address], [place], [address], [facility] 08/31/2024 08:08:26 4 76582: Hot or Cold Pack completed Danuta Duran, STAFF ENGINEER [address], [place], [address], [facility] 08/31/2024 08:08:26 4 82465: Manual therapy completed Danuta Duran STAFF ENGINEER [address], [place], [address], [facility] 08/31/2024 08:08:26 4 19554 Therapeutic Exercise (1:1) completed Danuta Duran STAFF ENGINEER [address], [place], [address], [facility] 08/28/2024 07:12:27 4 90065: Hot or Cold Pack completed Danuta Duran STAFF ENGINEER [address], [place], [address], [facility] 08/28/2024 07:12:27 4 01202: Manual therapy completed Danuta Duran STAFF ENGINEER [address], [place], [address], [facility] 08/28/2024 07:12:27 4 49886 Therapeutic Exercise (1:1) completed Danuta Duran, STAFF ENGINEER [address], [place], [address], [facility] 08/24/2024 15:15:24 4 46264: Hot or Cold Pack completed Danuta Duran, STAFF ENGINEER [address], [place], [address], [facility] 08/24/2024 15:15:24 4 78131: Manual therapy completed Dnauta Duran, STAFF ENGINEER [address], [place], [address], [facility] 08/24/2024 15:15:24 4 19912 Therapeutic Exercise (1:1) completed Danuta Duran STAFF ENGINEER [address], [place], [address], [facility] 08/17/2024 06:50:55 4 69435: Hot or Cold Pack completed Danuta Duran STAFF ENGINEER [address], [place], [address], [facility] 08/17/2024 06:50:55 4 05109: Manual therapy completed Danuta Duran STAFF ENGINEER [address], [place], [address], [facility] 08/17/2024 06:50:55 4 33232 Therapeutic Exercise (1:1) cancelled Danuta Duran PTA [address], [place], [address], [facility] 08/11/2024 15:24:58 4 55439: Hot or Cold Pack cancelled Danuta Duran PTA [address], [place], [address], [facility] 08/11/2024 15:24:58 4 88966: Manual therapy cancelled Danuta Duran PTA [address], [place], [address], [facility] 08/11/2024 15:24:58 4 43445 Therapeutic Exercise (1:1) cancelled Danuta Duran STAFF ENGINEER [address], [place], [address], [facility] 08/09/2024 10:41:48 4 25717: Hot or Cold Pack cancelled Danuta Duran STAFF ENGINEER [address], [place], [address], [facility] 08/09/2024 10:41:48 4 99759: Manual therapy cancelled Danuta Duran PTA [address], [place], [address], [facility] 08/09/2024 10:41:48 4 38723 Therapeutic Exercise (1:1) completed Danuta Duran PTA [address], [place], [address], [facility] 08/06/2024 16:26:53 4 93231: Hot or Cold Pack completed Danuta Duran PTA [address], [place], [address], [facility] 08/06/2024 16:26:53 4 72659: Manual therapy completed Danuta Duran PTA [address], [place], [address], [facility] 08/06/2024 16:26:53 4 82553 Therapeutic Exercise (1:1) completed Danuta Duran PTA [address], [place], [address], [facility] 08/04/2024 14:07:25 4 55873: Hot or Cold Pack completed Danuta Duran PTA [address], [place], [address], [facility] 08/04/2024 14:07:25 4 22687: Manual therapy completed Danuta Duran PTA [address], [place], [address], [facility] 08/04/2024 14:07:25 4 46092 Therapeutic Exercise (1:1) cancelled Danuta Duran STAFF ENGINEER [address], [place], [address], [facility] 07/31/2024 16:29:11 4 18236: Hot or Cold Pack cancelled Danuta Duran, STAFF ENGINEER [address], [place], [address], [facility] 07/31/2024 16:29:11 4 16837: Manual therapy cancelled Danuta Duran, STAFF ENGINEER [address], [place], [address], [facility] 07/31/2024 16:29:11 4 24351 Therapeutic Exercise (1:1) completed Danuta Duran, STAFF ENGINEER [address], [place], [address], [facility] 07/29/2024 12:20:26 4 86011: Hot or Cold Pack completed Danuta Duran, STAFF ENGINEER [address], [place], [address], [facility] 07/29/2024 12:20:26 4 90560: Manual therapy completed Danuta Duran, STAFF ENGINEER [address], [place], [address], [facility] 07/29/2024 12:20:26 4 53860 Therapeutic Exercise (1:1) completed Danuta Duran, STAFF ENGINEER [address], [place], [address], [facility] 07/24/2024 21:21:57 4 05853: Hot or Cold Pack completed Danuta Duran, STAFF ENGINEER [address], [place], [address], [facility] 07/24/2024 21:21:57 4 67922: Manual therapy completed Danuta Gardunoer, STAFF ENGINEER [address], [place], [address], [facility] 07/24/2024 21:21:57 4 33631 Therapeutic Exercise (1:1) completed Danuta Duran, STAFF ENGINEER [address], [place], [address], [facility] 07/21/2024 15:20:38 4 63666: Hot or Cold Pack completed aDnuta Duran PTA [address], [place], [address], [facility] 07/21/2024 15:20:38 4 71411: Manual therapy completed Danuta Duran PTA [address], [place], [address], [facility] 07/21/2024 15:20:38 4 63442 Therapeutic Exercise (1:1) completed Danuta Duran PTA [address], [place], [address], [facility] 07/18/2024 15:45:22 4 75810: Hot or Cold Pack completed Danuta Duran PTA [address], [place], [address], [facility] 07/18/2024 15:45:22 4 18628: Manual therapy completed Danuta Duran PTA [address], [place], [address], [facility] 07/18/2024 15:45:22 4 62506 Therapeutic Exercise (1:1) completed Danuta Duran PTA [address], [place], [address], [facility] 07/13/2024 15:17:27 4 86486: Hot or Cold Pack completed Danuta Duran PTA [address], [place], [address], [facility] 07/13/2024 15:17:27 4 49048: Manual therapy completed Danuta Duran PTA [address], [place], [address], [facility] 07/13/2024 15:17:27 4 87849 Therapeutic Exercise (1:1) cancelled Michael Glendyek, PT [address], [place], [address], [facility] 07/16/2024 06:56:14 4 32027: Hot or Cold Pack cancelled Michael Florek, PT [address], [place], [address], [facility] 07/16/2024 06:56:14 4 84667: Manual therapy cancelled Michael Glendyek, PT [address], [place], [address], [facility] 07/16/2024 06:56:14 4 85357 Therapeutic Exercise (1:1) completed Danuta Duran, STAFF ENGINEER [address], [place], [address], [facility] 07/08/2024 12:48:52 4 70901: Hot or Cold Pack completed Danuta Duran, STAFF ENGINEER [address], [place], [address], [facility] 07/07/2024 16:05:32 4 59346: Manual therapy completed Danuta Duran, STAFF ENGINEER [address], [place], [address], [facility] 07/07/2024 16:05:32 4 43858 Therapeutic Exercise (1:1) completed Danuta Duran, STAFF ENGINEER [address], [place], [address], [facility] 07/03/2024 12:00:20 4 62651: Hot or Cold Pack completed Danuta Duran, STAFF ENGINEER [address], [place], [address], [facility] 07/03/2024 12:00:20 4 36624: Manual therapy completed Danuta Duran STAFF ENGINEER [address], [place], [address], [facility] 07/03/2024 12:00:20 4 19419 Therapeutic Exercise (1:1) completed Danuta Duran PTA [address], [place], [address], [facility] 06/30/2024 17:33:45 4 94442: Hot or Cold Pack completed Danuta Duran PTA [address], [place], [address], [facility] 06/30/2024 17:33:45 4 41048: Manual therapy completed Danuta Duran PTA [address], [place], [address], [facility] 06/30/2024 17:33:45 4 55846 Therapeutic Exercise (1:1) completed Danuta Duran PTA [address], [place], [address], [facility] 06/28/2024 18:37:48 4 19306: Hot or Cold Pack completed Danuta Duran PTA [address], [place], [address], [facility] 06/28/2024 18:37:48 4 49371: Manual therapy completed Danuta Duran PTA [address], [place], [address], [facility] 06/28/2024 18:37:48 4 68968 Therapeutic Exercise (1:1) completed Danuta Duran PTA [address], [place], [address], [facility] 06/24/2024 14:43:05 4 69878: Hot or Cold Pack completed Danuta Duran PTA [address], [place], [address], [facility] 06/24/2024 14:43:05 4 93910: Manual therapy completed Danuta Duran PTA [address], [place], [address], [facility] 06/24/2024 14:43:05 4 98041 Therapeutic Exercise (1:1) completed Michael Thurston, PT [address], [place], [address], [facility] 06/23/2024 05:24:29 4 93752: Hot or Cold Pack completed Michael Thurston, PT [address], [place], [address], [facility] 06/23/2024 05:22:26 4 21370: Manual therapy completed Michael Thurston, PT [address], [place], [address], [facility] 06/23/2024 05:24:26 4 29407 Therapeutic Exercise (1:1) completed Danuta Duran PTA [address], [place], [address], [facility] 06/17/2024 12:59:58 4 89701: Hot or Cold Pack completed Danuta Duran PTA [address], [place], [address], [facility] 06/17/2024 12:59:58 4 49001: Manual therapy completed Danuta Duran STAFF ENGINEER [address], [place], [address], [facility] 06/17/2024 12:59:58 4 39500 Therapeutic Exercise (1:1) completed Danuta Duran STAFF ENGINEER [address], [place], [address], [facility] 06/15/2024 15:18:55 4 92003: Hot or Cold Pack completed Danuta Duran, STAFF ENGINEER [address], [place], [address], [facility] 06/15/2024 15:18:55 4 83189: Manual therapy completed Danuta Duran, STAFF ENGINEER [address], [place], [address], [facility] 06/15/2024 15:18:55 4 31533 Therapeutic Exercise (1:1) completed Michael Thurston, PT [address], [place], [address], [facility] 06/11/2024 08:35:04 4 77843: Hot or Cold Pack completed Michael Thurston, PT [address], [place], [address], [facility] 06/11/2024 08:35:04 4 76614: Manual therapy completed Michael Thurston, PT [address], [place], [address], [facility] 06/11/2024 08:35:04 4 30355 Therapeutic Exercise (1:1) completed Michael Thurston, PT [address], [place], [address], [facility] 06/08/2024 06:41:08 4 39219: Hot or Cold Pack completed Michael Thurston, PT [address], [place], [address], [facility] 06/08/2024 06:41:08 4 90783: Manual therapy completed Michael Thurston, PT [address], [place], [address], [facility] 06/08/2024 06:41:08 4 36152 Therapeutic Exercise (1:1) cancelled Michael Thurston, PT [address], [place], [address], [facility] 06/03/2024 07:05:05 4 75615: Hot or Cold Pack cancelled Michaelmor Thurston, PT [address], [place], [address], [facility] 06/03/2024 07:05:05 4 49798: Manual therapy cancelled Michael Thurston, PT [address], [place], [address], [facility] 06/03/2024 07:05:05 4 31661 Therapeutic Exercise (1:1) completed Michael Thurston, PT [address], [place], [address], [facility] 06/01/2024 08:17:00 4 08028: Hot or Cold Pack completed Michael Thurston, PT [address], [place], [address], [facility] 06/01/2024 08:17:00 4 18453: Manual therapy completed Michael Thurston, PT [address], [place], [address], [facility] 06/02/2024 06:13:36 4 43758 Therapeutic Exercise (1:1) completed Danuta Duran, STAFF ENGINEER [address], [place], [address], [facility] 05/26/2024 13:25:19 4 72275: Hot or Cold Pack completed Danuta Duran, STAFF ENGINEER [address], [place], [address], [facility] 05/26/2024 13:25:13 4 30160: Manual therapy completed Danuta Duran, STAFF ENGINEER [address], [place], [address], [facility] 05/26/2024 13:25:21 4 55747 Therapeutic Exercise (1:1) completed Michael Thurston, PT [address], [place], [address], [facility] 05/15/2024 14:11:41 4 91343: Low complexity PT Eval completed Michael Thurston, PT [address], [place], [address], [facility] 05/15/2024 14:11:47 4 Shoulder Surgery completed HANNAH [place] [facility] 02/18/2025 08:28:24 4 54904 Therapeutic Exercise (1:1) completed Isaias Sargent DPT [address], [place], [address], [facility] 02/11/2024 10:54:58 4 87357: Manual therapy completed Isaias Sargent DPT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
--- OUTSIDE RECORDS SUMMARY | 2025-11-21 17:50 | XMS_ITS | Encounter Summary ---
Author Organization [facility] Address [address] [place] [address] Phone Care Team Providers Care Liner Machine Operator Name Role Phone Inna Lutz MD Primary Care Provider [phone] Encounter Details Date Type Department Care Team (Latest Contact Info) Description 11/09/2021 Transcribe Orders Virtual Department [address] [place] [address] Barb Coleman NP [address] [place] [address] Abdominal pain, unspecified abdominal location (Primary Dx); [...] anus documented in this encounter Care Teams Liner Machine Operator Relationship Specialty Start Date End Date Inna Lutz MD [address] [place] [address] PCP - General Internal Medicine 11/08/21 documented as of this encounter Additional Source Comments The information contained in this document represents components of the legal health record. It is not the complete legal health record.[facility]
[2025-11-21 17:53] LABS: MANUAL DIFF FLAG NO
[2025-11-21 18:04] LABS: Hematocrit 44.9 % (42.0-52.0); Hemoglobin 14.9 g/dl (14.0-18.0); Imm Gran Abs Auto 0.03 X10*3/uL (0.00-0.03); Imm Gran Pct Auto 0.3 % (0.0-0.4); Lymphocytes Absolute Auto 0.9 X10*3/uL (1.2-4.9); Mean Corpuscular HGB Conc 33.2 g/dl (31.0-36.0); Mean Corpuscular Hemoglobin 30.0 pg (27.0-33.0); Mean Corpuscular Volume 90.5 fL (80.0-98.0); NRBC Abs Auto 0.000 X10*3/uL (0.0-0.012); NRBC Pct Auto 0.0 /100WBC (0.0-0.2); Platelet Count 331 X10*3/uL (160-400); Red Blood Count 4.96 X10*6/uL (4.60-5.80); White Blood Count 8.9 X10*3/uL (4.8-10.8)
[2025-11-21 18:09] LABS: Alanine Aminotransferase 32 U/L (0-40); Albumin Level 5.4 g/dL (3.5-5.0); Alkaline Phosphatase 89 U/L (39-117); Anion Gap 15 (12-20); Aspartate Amino Transferase 24 U/L (5-37); Blood Urea Nitrogen 15 mg/dL (9-16); Calcium 10.2 mg/dL (8.4-10.2); Carbon Dioxide 26 mmol/L (22-29); Chloride 102 mmol/L (96-108); Creatinine Clr Calc Pharmacy 93.8; Estimated Glomerular Filt Rate > 60; Potassium 3.8 mmol/L (3.3-5.1); Sodium 139 mmol/L (135-145); Total Protein 8.8 g/dL (6.5-8.0)
--- NOTE | 2025-11-21 21:13 | PC.NURSE ---
pt reported multiple times to triage requesting to leave. multiple conversations with PA who recommended against him leaving and pt stayed. label printer made aware. IV placed to L. forearm in triage. pts labs are being obtained now and will be going to [facility] upon completion.
[2025-11-21] MEDS: Rabies Vaccine (PCEC)/PF 1 ML VIAL IM (22:24)
--- NOTE | 2025-11-21 22:40 | PC.NURSE ---
20 g IV left forearm
[2025-11-21 23:12] VITALS: BP 130/78; PULSE 70; RESP 18; TEMP 36.7; O2SAT 99
== END 2025-11-21 23:12 | disposition home or self-care (01) ==
PROVIDERS: Physician Assistant Medical; Emergency Provider Emergency Medicine; PCP Internal Medicine
DX: S61.452A Open bite of left hand, initial encounter (principal); M79.642 Pain in left hand; W54.0XXA Bitten by dog, initial encounter; Y93.9 Activity, unspecified; Y92.9 Unspecified place or not applicable; Y99.8 Other external cause status; Z23 Encounter for immunization; Z29.14 Encounter for prophylactic rabies immune globulin; Z20.3 Contact with and (suspected) exposure to rabies
CPT/HCPCS: 36415; 73130; 80053; 83605; 85025; 85652; 86140; 87040; 90375; 90471; 90472; 90675; 90715; 96372; 99284; J1885; J2543

== ENCOUNTER → 2025-11-21 17:25 | Outpatient (BNV) | payer BC, MEDICAID, SELFPAY | PROVIDERS: PCP Internal Medicine; Visit Provider Radiology Diagnostic Radiology | DX: M79.642 Pain in left hand (principal) | CPT/HCPCS: 73130 ==

== ENCOUNTER 2025-11-24 09:36 | Outpatient (AMB) | payer BC, MEDICAID, SELFPAY ==
--- NOTE | 2025-11-24 09:57 | MHC.OFFVIS ---
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 States he was bit in the left hand by a large dog of his neighbor in the apartment complex. He was unsure of the dog's vaccination status but this is a dog that is owned by the neighbor. Patient was cleaned up and splinted. Today patient state she has tingling and some numbness, he gets a cold sensation at times. Allergies methocarbamol (From Robaxin) Allergy (Verified 11/24/25 10:00) Anaphylaxis HPI HPI ED f/u LT hand dog bite: Details: Tim is a 35 year old Ambidextrous man who presents for a left hand dog bite injury, DOI: 11/21/25. He was seen in the ED & splinted. He complains of some pain, tingling, and episodes of numbness in his hand, along with his hand feeling cold. His chief complaint is of pain over the dorsal aspect of the 4th and 5th metacarpal aspect of his hand. He is hesitant to move his fingers due to pain. He has been taking his PO Augmentin. He works at the [employer] and has been off of work. This is not a work-related injury. 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 Review of Systems Const All systems reviewed & are unremarkable except as noted in HPI and below Physical Exam Vital Signs: BMI result Body Mass Index 22.1 Const General: cooperative, healthy appearing and no acute distress Orientation/consciousness: patient oriented x3 HEENT Head: Yes normocephalic and Yes atraumatic Eyes EOM: EOMs intact bilaterally Resp Effort & Inspection: normal respiratory effort and able to speak in complete sentences Cardio Jugular venous distension: no JVD Skin General skin exam: turgor normal Rashes: no rashes Neuro General: patient oriented x3 Extrem Other: Evaluation of Left Upper Extremity: The patient is alert, oriented, and in no acute distress Neuro: Median, Ulnar, Radial nerves motor and sensory intact and sensation is normal to the tips of all digits. No intrinsic or thenar wasting. Good finger abduction and adduction and good APB muscle belly firing Vascular: Cap refill brisk ROM: With encouragement he can make a weak fist. With encouragement he could then extend all his digits Full active wrist ROM Skin: 2 partial thickness puncture wounds over the dorsal aspect of the 4th metacarpal, ~2mm, already healing 1 partial thickness puncture wound over te 2nd metacarpal, ~2mm, already healing No erythema drainage or evidence of infection No abrasions or scratches seen today in clinic Mild swelling and mild resolving ecchymosis located for the most part over the dorsal aspect of the 4th metacarpal Mild tenderness over the 4th metacarpal Radiographs: 3 views of the left wrist were taken and viewed by me today in clinic. They show no fractures or dislocations. 3 views of the left hand and of the left wrist from 11/21/25 were reviewed by me today in clinic. They show no fractures or dislocations Psych Appearance: grossly normal Affect: normal affect Attitude: cooperative Assessment & Plan Assessment & Plan (1) Contusion of left wrist: Code(s): S60.212A - Contusion of left wrist, initial encounter Category: Medical (2) Contusion of left hand: Code(s): S60.222A - Contusion of left hand, initial encounter Category: Medical (3) Dog bite: Code(s): W54.0XXA - Bitten by dog, initial encounter Category: Medical Plan Assessment & Plan: 1. Left hand contusion, S/P dog bite DOI: 11/21/25 3X Partial thickness puncture wounds, no evidence of infection Only occasional episodes of numbness and coldness in the hand. I educated him about these conditions I discussed operative and non-operative treatment options, and there are no operative indications I explained that his swelling & sensation would likely improve over the next 1-2 weeks He was fitted for a velcro wrist splint, to be worn when out of the house with daily activities for the next few 1-2 weeks I explained the signs and symptoms of infection, if the patient develops any new or worsening erythema, drainage, pain, or warmth they should contact the clinic or attend the ED. 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 He was given a note for work to return on 11/26/2024 on light duty with a 3lb weight limit for the next 2 weeks. Then return to full duty He will follow up prn Please note that greater than 30 minutes was spent with this patient going over the history, evaluating the patient and radiographs, formulating possible treatment options, discussing them with the patient, and documenting the visit. Scribed for Melanie Gee MD by Clifford Romeo, medical laboratory technicians, on 11/24/25 at 10:05 AM, EST. Orders: Orders XR wrist LT min 3V Today M25.532 - Pain in left wrist Coding Level of Care Code New Pt Level 4 (89810) Diagnoses Contusion of left wrist S60.212A Contusion of left hand S60.222A Dog bite W54.0XXA
[2025-11-24 10:01] VITALS: BMI 22.1
--- OUTSIDE RECORDS SUMMARY | 2025-11-24 10:05 | XMS_ITS | Data Portability ---
Author Organization [place] - [facility], [facility] [place] Address [address] [place] [address] Care Team Providers Care [employer] Professor Name Role Phone Sabra Sharma Primary Care [...] 18 025 Vandana Padgett MD Not available [facility] 08/11/2025 15:16:42 physic al [...] 2024 14:25: 32 025 Vandana Padgett MD [facility]3]e Office [address], [place], [address], [facility] 10/26/2025 14:10:04 XR, should er, 2 or more view 2024 13:35: 40 025 Vandana Padgett MD [facility] [address], [place], [address], [facility] 08/11/2025 15:16:42 XR, should er, 2 or more view 2024 09:32: 51 025 Vandana Padgett MD [facility] [address], [place], [address], [facility] 03/18/2025 08:55:43 MedicationOrders None [...] Vandana Padgett, Orthopedic Surgery, Encounter Date: 01/22/2025 Results Created Date Observation Date Name Description Value Unit Range Abnormal Flag Specimen Type Note LastModifiedBy Organization Detail LastModifiedTime 02/02/2025 02/02/2025 No observation recorded. CAROLYN RENNER Not Available 02/02/2025 13:37:42 03/05/2025 03/05/2025 shoulder 4 view [email or web address] ncrypted=shAa BcpNA8cMtcNQy 6g%2BXZwaYqta q0bqfl%2Fg9IQ y2qgWhkW8oOgT EnsaMf1GkCRTz OgvIUF5mFlPVc [id number] qYnqMWaOhKiQt rMwF Not Available [facility] , [address] [address] , [place] , [address], , 03/05/2025 09:39:05 03/05/2025 03/05/2025 shoulder 4 view [email or web address] ncrypted=shAa JusBR9jPlzLUw 6g%2BXZwaYqta q0bqfl%2Fg9IQ l8cmHnpC8bBeC UgupYq5NnCKYk BizBDJ5eEwMOd qw04u3068UP6S qYnqMWaOhKiQt rMwF Not Available [facility]3]e Office , [address],[facility] [address] , [place] , [address], , 03/05/2025 09:39:06 08/06/2025 08/06/2025 shoulder 4 view [email or web address] ncrypted=shAa ZebAK9lRcnHRf 6g%2BXZwaYqta q0bqfl%2Fg9IQ v2dmRxkV2sFzI LmnfVt7HqCTHh GzoVMM1mDqAJr pc20a9813AJ8X ivH3BQNEdVpBo rMwF Not Available [facility]3]e Office , [address] [address] , [place] , [address], , 08/06/2025 13:45:22 08/06/2025 08/06/2025 shoulder 4 view [email or web address] ncrypted=shAa QvvLH8cHzuEJe 6g%2BXZwaYqta q0bqfl%2Fg9IQ d0aoOgqG3lYlN ZniqUr6IdWLCx FiiAFJ2oJoIFr pk47v0866PZ5V sdG5LAYUkJdRx rMwF Not Available [facility] , [address],[facility] [address] , [place] , [address], , 08/06/2025 13:45:23 10/15/2025 10/15/2025 shoulder 4 view [email or web address] ncrypted=Casey OrellanaQnpMQ2gQfqPMb 6g%2BXZwaYqta q0bqfl%2Fg9IQ l9awEeyN3bAfZ NmoaMs6UgOFRi EylHPU1cWhVWj zu61h9452IR8Y wA7eUNqQpLcGc rMwF Not Available [facility] , [address],[facility] [address] , [place], [place] , [address] , 10/15/2025 14:34:16 10/15/2025 10/15/2025 shoulder 4 view [email or web address] ncrypted=Casey OrellanaEpwJV2fDteQJl 6g%2BXZwaYqta q0bqfl%2Fg9IQ r2fpGnaN3gQhY XvjzBv4OfXGYr FcaPTD3xLqENb rz74g5683ID5V kO0oEJxXbIdSt rMwF Not Available [facility] , [address] [facility] [address] , [place] , [address], , 10/15/2025 14:34:18 Result Notes Documentation Provider Name and Address Organization Details Recorded Time Xr, Shoulder, 2 Or More View : [email or web address] Encrypted=onWaKthVV6uHpeP Uv6g%6HZUmfAqkhq3atpr%2Fg 8BWm4kgDqsU8hCcJJvdoTm7Je VJDrXprPYY0yZzBEjla88i592 0ME5AfSjfMAgHnQwQkiXzP Not Available [facility] 03/05/2025 09:39: 05 Xr, Shoulder, 2 Or More View : [email or web address]? Encrypted=ycGgBebVV2xEhjI Uv6g%3JPXelYjnzf6hlin%2Fg 7RRy3rpUbbX4zTpXGjmnAx0Dg LJWzCftDRA9vKqSJbpo12j244 8OB2TpLmzSSxHjQsRhlGxA Not Available [facility] 03/05/2025 09:39: 06 Xr, Shoulder, 2 Or More View : [email or web address]? Encrypted=mmIoVkaCO8lBbhT Uv6g%8ETCsgTigih4vgir%2Fg 4IVe4nzEhcN7pEkNOvntGm1Xs JYCrNehBLR8tKaWHpbt25z187 6PX0ArpP8OAELsTrUicLhN Not Available [facility] 08/06/2025 13:45: 22 Xr, Shoulder, 2 Or More View : [email or web address]? Encrypted=tvVfVjwUM8tIapF Uv6g%7EWRnzFwdmh0aqcy%2Fg 6CVv3whDtbJ2hGuVUppgPd2Ix QJNxGvrOZI2zAxKIqhs55k040 5AW8DatE2QKUBvGaGncBzZ Not Available [facility] 08/06/2025 13:45: 23 Xr, Shoulder, 2 Or More View : [email or web address]? Encrypted=xcVwPgfTG9kSfvW Uv6g%7NLFmwGyrmp3cjvx%2Fg 2LYb7dsNniF8jQmKXqyjCb9Hx YKGcAgaBEZ0uGgOQmyc32w839 7MC5MlH3rKQtLkPtXbhQpE Not Available [facility] 10/15/2025 14:34: 16 Xr, Shoulder, 2 Or More View : [email or web address]? 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 Active 2023 James Whitfield PA-C [address], [place], [address], [facility] 4 06:51:09 Pain of right shoulder joint 0418440294968 9100 Active 2023 MORRIS PIRES [facility] 4 09:54:39 Chronic pain of right upper limb 4251432426379 9108 Active 2023 James Whitfield PA-C [address], [place], [address], [facility] 4 11:12:47 Pain of left shoulder joint 3975008230406 9109 Active 2023 James Whitfield PA-C [address], [place], [address], [facility] 4 11:32:24 Pain of left shoulder region Active 2023 James Whitfield PA-C [address], [place], [address], [facility] 4 10:48:08 Neck pain 85005896 Active 2023 Mitch San MD [address], [place], [address], [facility] 5 10:59:05 Sprain of left acromioclav icular ligament 6333151523812 9103 Active 2023 James Whitfield PA-C [address], [place], [address], [facility] 4 11:19:57 Cervical spondylosis 300867661 Active 2024 Mitch San MD [address], [place], [address], [facility] 5 16:34:54 Strain of neck muscle 284130453 Active 2024 Mitch San MD [address], [place], [address], [facility] 16:34:56 Problem Notes None recorded. Procedures Surgical History Date Name Laterality Status Provider Name and Address Organization Details Recorded Time 5 32332 Therapeutic Exercise (1:1) completed Danuta Duran PTA [address], [place], [address], [facility] 01/06/2025 13:44:44 5 81873: Manual therapy completed Danuta Duran PTA [address], [place], [address], [facility] 01/06/2025 13:44:44 5 27885 Therapeutic Exercise (1:1) completed Danuta Duran PTA [address], [place], [address], [facility] 01/01/2025 07:13:25 5 03407: Manual therapy completed MARIO [address], [place], [address], [facility] 01/01/2025 07:13:25 5 53892 Therapeutic Exercise (1:1) completed Danuta Duran PTA [address], [place], [address], [facility] 12/30/2024 11:02:27 5 88415: Manual therapy completed Danuta Duran PTA [address], [place], [address], [facility] 12/30/2024 11:02:27 5 26559 Therapeutic Exercise (1:1) cancelled Danuta Duran, ROLLER PRINTER [address], [place], [address], [facility] 12/28/2024 06:41:48 5 75820: Manual therapy cancelled Danuta Duran, ROLLER PRINTER [address], [place], [address], [facility] 12/28/2024 06:41:48 5 77800 Therapeutic Exercise (1:1) cancelled Michael Karena, PT [address], [place], [address], [facility] 12/24/2024 06:51:08 5 34147: Manual therapy cancelled Michael Karena, PT [address], [place], [address], [facility] 12/24/2024 06:51:08 5 70492 Therapeutic Exercise (1:1) completed Michael Thurston, PT [address], [place], [address], [facility] 12/22/2024 12:29:47 5 60776: Manual therapy completed Michael Thurston, PT [address], [place], [address], [facility] 12/22/2024 12:29:56 5 65803 Therapeutic Exercise (1:1) cancelled Michael Thurston, PT [address], [place], [address], [facility] 12/16/2024 17:30:22 5 77935: Low complexity PT Eval cancelled Michael Thurston, PT [address], [place], [address], [facility] 12/16/2024 17:30:22 5 67038 Therapeutic Exercise (1:1) completed Michael Florek, PT [address], [place], [address], [facility] 12/02/2024 13:25:08 5 77536: Low complexity PT Eval completed Michaelmor Thurston, PT [address], [place], [address], [facility] 12/02/2024 13:25:08 5 73187 Therapeutic Exercise (1:1) cancelled Michaelmor Pikeek, PT [address], [place], [address], [facility] 12/02/2024 05:35:53 5 80941: Hot or Cold Pack cancelled Michaelmor Thurston, PT [address], [place], [address], [facility] 12/02/2024 05:35:53 5 19819: Manual therapy cancelled Michaelmor Thurston, PT [address], [place], [address], [facility] 12/02/2024 05:35:53 4 88834 Therapeutic Exercise (1:1) cancelled Michaelmor Thurston, PT [address], [place], [address], [facility] 09/22/2024 06:41:31 4 57472: Hot or Cold Pack cancelled Michaelmor Pikeek, PT [address], [place], [address], [facility] 09/22/2024 06:41:31 4 36353: Manual therapy cancelled Michaelmor Pikeek, PT [address], [place], [address], [facility] 09/22/2024 06:41:31 4 58533 Therapeutic Exercise (1:1) cancelled Michael Glendyek, PT [address], [place], [address], [facility] 09/14/2024 12:23:31 4 77135: Hot or Cold Pack cancelled Michael Karena, PT [address], [place], [address], [facility] 09/14/2024 12:23:31 4 41319: Manual therapy cancelled Michael Karena, PT [address], [place], [address], [facility] 09/14/2024 12:23:31 4 86246 Therapeutic Exercise (1:1) cancelled Danuta Duran ROLLER PRINTER [address], [place], [address], [facility] 09/08/2024 17:28:34 4 22757: Hot or Cold Pack cancelled Danuta Duran ROLLER PRINTER [address], [place], [address], [facility] 09/08/2024 17:28:34 4 98926: Manual therapy cancelled Danuta Duran ROLLER PRINTER [address], [place], [address], [facility] 09/08/2024 17:28:34 4 71513 Therapeutic Exercise (1:1) completed Danuta Duran ROLLER PRINTER [address], [place], [address], [facility] 09/01/2024 14:05:39 4 13168: Hot or Cold Pack completed Danuta Duran ROLLER PRINTER [address], [place], [address], [facility] 09/01/2024 14:05:39 4 36331: Manual therapy completed Danuta Duran ROLLER PRINTER [address], [place], [address], [facility] 09/01/2024 14:05:39 4 21581 Therapeutic Exercise (1:1) completed Danuta Duran, ROLLER PRINTER [address], [place], [address], [facility] 08/31/2024 08:08:26 4 50463: Hot or Cold Pack completed Danuta Duran, ROLLER PRINTER [address], [place], [address], [facility] 08/31/2024 08:08:26 4 03399: Manual therapy completed Danuta Duran ROLLER PRINTER [address], [place], [address], [facility] 08/31/2024 08:08:26 4 85688 Therapeutic Exercise (1:1) completed Danuta Duran ROLLER PRINTER [address], [place], [address], [facility] 08/28/2024 07:12:27 4 03848: Hot or Cold Pack completed Danuta Duran ROLLER PRINTER [address], [place], [address], [facility] 08/28/2024 07:12:27 4 05166: Manual therapy completed Danuta Duran ROLLER PRINTER [address], [place], [address], [facility] 08/28/2024 07:12:27 4 48994 Therapeutic Exercise (1:1) completed Danuta Duran, ROLLER PRINTER [address], [place], [address], [facility] 08/24/2024 15:15:24 4 19601: Hot or Cold Pack completed Danuta Duran, ROLLER PRINTER [address], [place], [address], [facility] 08/24/2024 15:15:24 4 26197: Manual therapy completed Danuta Duran, ROLLER PRINTER [address], [place], [address], [facility] 08/24/2024 15:15:24 4 65780 Therapeutic Exercise (1:1) completed Danuta Duran ROLLER PRINTER [address], [place], [address], [facility] 08/17/2024 06:50:55 4 21499: Hot or Cold Pack completed Danuta Duran ROLLER PRINTER [address], [place], [address], [facility] 08/17/2024 06:50:55 4 92885: Manual therapy completed Danuta Duran ROLLER PRINTER [address], [place], [address], [facility] 08/17/2024 06:50:55 4 73514 Therapeutic Exercise (1:1) cancelled Danuta Duran PTA [address], [place], [address], [facility] 08/11/2024 15:24:58 4 18851: Hot or Cold Pack cancelled Danuta Duran PTA [address], [place], [address], [facility] 08/11/2024 15:24:58 4 24257: Manual therapy cancelled Danuta Duran PTA [address], [place], [address], [facility] 08/11/2024 15:24:58 4 91176 Therapeutic Exercise (1:1) cancelled Danuta Duran ROLLER PRINTER [address], [place], [address], [facility] 08/09/2024 10:41:48 4 14819: Hot or Cold Pack cancelled Danuta Duran ROLLER PRINTER [address], [place], [address], [facility] 08/09/2024 10:41:48 4 46856: Manual therapy cancelled Danuta Duran PTA [address], [place], [address], [facility] 08/09/2024 10:41:48 4 17197 Therapeutic Exercise (1:1) completed Danuta Duran PTA [address], [place], [address], [facility] 08/06/2024 16:26:53 4 85887: Hot or Cold Pack completed Danuta Duran PTA [address], [place], [address], [facility] 08/06/2024 16:26:53 4 12657: Manual therapy completed Danuta Duran PTA [address], [place], [address], [facility] 08/06/2024 16:26:53 4 92523 Therapeutic Exercise (1:1) completed Danuta Duran PTA [address], [place], [address], [facility] 08/04/2024 14:07:25 4 99279: Hot or Cold Pack completed Danuta Duran PTA [address], [place], [address], [facility] 08/04/2024 14:07:25 4 54178: Manual therapy completed Danuta Duran PTA [address], [place], [address], [facility] 08/04/2024 14:07:25 4 80562 Therapeutic Exercise (1:1) cancelled Danuta Duran ROLLER PRINTER [address], [place], [address], [facility] 07/31/2024 16:29:11 4 97131: Hot or Cold Pack cancelled Danuta Duran, ROLLER PRINTER [address], [place], [address], [facility] 07/31/2024 16:29:11 4 71157: Manual therapy cancelled Danuta Duran, ROLLER PRINTER [address], [place], [address], [facility] 07/31/2024 16:29:11 4 66366 Therapeutic Exercise (1:1) completed Danuta Duran, ROLLER PRINTER [address], [place], [address], [facility] 07/29/2024 12:20:26 4 23220: Hot or Cold Pack completed Danuta Duran, ROLLER PRINTER [address], [place], [address], [facility] 07/29/2024 12:20:26 4 10379: Manual therapy completed Danuta Duran, ROLLER PRINTER [address], [place], [address], [facility] 07/29/2024 12:20:26 4 05511 Therapeutic Exercise (1:1) completed Danuta Duran, ROLLER PRINTER [address], [place], [address], [facility] 07/24/2024 21:21:57 4 16481: Hot or Cold Pack completed Danuta Duran, ROLLER PRINTER [address], [place], [address], [facility] 07/24/2024 21:21:57 4 57499: Manual therapy completed Danuta Gardunoer, ROLLER PRINTER [address], [place], [address], [facility] 07/24/2024 21:21:57 4 72790 Therapeutic Exercise (1:1) completed Danuta Duran, ROLLER PRINTER [address], [place], [address], [facility] 07/21/2024 15:20:38 4 17948: Hot or Cold Pack completed Danuta Duran PTA [address], [place], [address], [facility] 07/21/2024 15:20:38 4 03662: Manual therapy completed Danuta Duran PTA [address], [place], [address], [facility] 07/21/2024 15:20:38 4 54886 Therapeutic Exercise (1:1) completed Danuta Duran PTA [address], [place], [address], [facility] 07/18/2024 15:45:22 4 98728: Hot or Cold Pack completed Danuta Duran PTA [address], [place], [address], [facility] 07/18/2024 15:45:22 4 10384: Manual therapy completed Daunta Duran PTA [address], [place], [address], [facility] 07/18/2024 15:45:22 4 09866 Therapeutic Exercise (1:1) completed Danuta Duran PTA [address], [place], [address], [facility] 07/13/2024 15:17:27 4 77149: Hot or Cold Pack completed Danuta Duran PTA [address], [place], [address], [facility] 07/13/2024 15:17:27 4 80152: Manual therapy completed Danuta Duran PTA [address], [place], [address], [facility] 07/13/2024 15:17:27 4 58516 Therapeutic Exercise (1:1) cancelled Michael Glendyek, PT [address], [place], [address], [facility] 07/16/2024 06:56:14 4 39924: Hot or Cold Pack cancelled Michael Florek, PT [address], [place], [address], [facility] 07/16/2024 06:56:14 4 69376: Manual therapy cancelled Michael Glendyek, PT [address], [place], [address], [facility] 07/16/2024 06:56:14 4 37054 Therapeutic Exercise (1:1) completed Danuta Duran, ROLLER PRINTER [address], [place], [address], [facility] 07/08/2024 12:48:52 4 96065: Hot or Cold Pack completed Danuta Duran, ROLLER PRINTER [address], [place], [address], [facility] 07/07/2024 16:05:32 4 32335: Manual therapy completed Danuta Duran, ROLLER PRINTER [address], [place], [address], [facility] 07/07/2024 16:05:32 4 81111 Therapeutic Exercise (1:1) completed Danuta Duran, ROLLER PRINTER [address], [place], [address], [facility] 07/03/2024 12:00:20 4 84731: Hot or Cold Pack completed Danuta Duran, ROLLER PRINTER [address], [place], [address], [facility] 07/03/2024 12:00:20 4 38153: Manual therapy completed Danuta Duran ROLLER PRINTER [address], [place], [address], [facility] 07/03/2024 12:00:20 4 30840 Therapeutic Exercise (1:1) completed Danuta Duran PTA [address], [place], [address], [facility] 06/30/2024 17:33:45 4 10599: Hot or Cold Pack completed Danuta Duran PTA [address], [place], [address], [facility] 06/30/2024 17:33:45 4 58553: Manual therapy completed Danuta Duran PTA [address], [place], [address], [facility] 06/30/2024 17:33:45 4 23985 Therapeutic Exercise (1:1) completed Danuta Duran PTA [address], [place], [address], [facility] [facility] 06/28/2024 18:37:48 4 95639: Hot or Cold Pack completed Danuta Duran PTA [address], [place], [address], [facility] 06/28/2024 18:37:48 4 73928: Manual therapy completed Danuta Duran PTA [address], [place], [address], [facility] 06/28/2024 18:37:48 4 39003 Therapeutic Exercise (1:1) completed Danuta Duran PTA [address], [place], [address], [facility] 06/24/2024 14:43:05 4 98701: Hot or Cold Pack completed Danuta Duran PTA [address], [place], [address], [facility] 06/24/2024 14:43:05 4 49666: Manual therapy completed Danuta Duran PTA [address], [place], [address], [facility] 06/24/2024 14:43:05 4 50520 Therapeutic Exercise (1:1) completed Michael Thurston, PT [address], [place], [address], [facility] 06/23/2024 05:24:29 4 31930: Hot or Cold Pack completed Michale Thurston, PT [address], [place], [address], [facility] 06/23/2024 05:22:26 4 21144: Manual therapy completed Michael Thurston, PT [address], [place], [address], [facility] 06/23/2024 05:24:26 4 19379 Therapeutic Exercise (1:1) completed Danuta Duran PTA [address], [place], [address], [facility] 06/17/2024 12:59:58 4 93441: Hot or Cold Pack completed Danuta Duran PTA [address], [place], [address], [facility] 06/17/2024 12:59:58 4 24546: Manual therapy completed Danuta Duran ROLLER PRINTER [address], [place], [address], [facility] 06/17/2024 12:59:58 4 54321 Therapeutic Exercise (1:1) completed Danuta Duran ROLLER PRINTER [address], [place], [address], [facility] 06/15/2024 15:18:55 4 28419: Hot or Cold Pack completed Danuta Duran, ROLLER PRINTER [address], [place], [address], [facility] 06/15/2024 15:18:55 4 23929: Manual therapy completed Danuta Duran, ROLLER PRINTER [address], [place], [address], [facility] 06/15/2024 15:18:55 4 94056 Therapeutic Exercise (1:1) completed Michael Thurston, PT [address], [place], [address], [facility] 06/11/2024 08:35:04 4 33919: Hot or Cold Pack completed Michael Thurston, PT [address], [place], [address], [facility] 06/11/2024 08:35:04 4 98087: Manual therapy completed Michael Thurston, PT [address], [place], [address], [facility] 06/11/2024 08:35:04 4 84309 Therapeutic Exercise (1:1) completed Michael Thurston, PT [address], [place], [address], [facility] 06/08/2024 06:41:08 4 69062: Hot or Cold Pack completed Michael Thurston, PT [address], [place], [address], [facility] 06/08/2024 06:41:08 4 97279: Manual therapy completed Michael Thurston, PT [address], [place], [address], [facility] 06/08/2024 06:41:08 4 03647 Therapeutic Exercise (1:1) cancelled Michael Thurston, PT [address], [place], [address], [facility] 06/03/2024 07:05:05 4 10431: Hot or Cold Pack cancelled Michaelmor Thurston, PT [address], [place], [address], [facility] 06/03/2024 07:05:05 4 61579: Manual therapy cancelled Michael Thurston, PT [address], [place], [address], [facility] 06/03/2024 07:05:05 4 46306 Therapeutic Exercise (1:1) completed Michael Thurston, PT [address], [place], [address], [facility] 06/01/2024 08:17:00 4 06318: Hot or Cold Pack completed Michael Thurston, PT [address], [place], [address], [facility] 06/01/2024 08:17:00 4 76626: Manual therapy completed Michael Thurston, PT [address], [place], [address], [facility] 06/02/2024 06:13:36 4 90721 Therapeutic Exercise (1:1) completed Danuta Duran, ROLLER PRINTER [address], [place], [address], [facility] 05/26/2024 13:25:19 4 30790: Hot or Cold Pack completed Danuta Duran, ROLLER PRINTER [address], [place], [address], [facility] 05/26/2024 13:25:13 4 03082: Manual therapy completed Danuta Duran, ROLLER PRINTER [address], [place], [address], [facility] 05/26/2024 13:25:21 4 76226 Therapeutic Exercise (1:1) completed Michael Thurston, PT [address], [place], [address], [facility] 05/15/2024 14:11:41 4 97140: Low complexity PT Eval completed Michael Thurston, PT [address], [place], [address], [facility] 05/15/2024 14:11:47 4 Shoulder Surgery completed HANNAH MA [facility] 02/18/2025 08:28:24 4 66840 Therapeutic Exercise (1:1) completed Isaias Sargent DPT [address], [place], [address], [facility] 02/11/2024 10:54:58 4 00682: Manual therapy completed Isaias Sargent DPT [address], [place], [address], [facility] 02/11/2024 10:57:19 Ankle/Foot Surgery completed ROSALIA HERR [facility] 04/17/2024 13:42:05 Other completed ROSALIA HERR [facility] 04/17/2024 13:42:05 Imaging Results Imaging Date Name Status LastModifiedBy Organiza tion Detail LastModifiedTime 02/02/2025 completed CAROLYN RENNER Not Available 02/02/2025 13:37:42 03/05/2025 shoulder 4 view completed Not Available [facility] , [address] , [place] , [address], [place] , 03/05/2025 09:39:05 03/05/2025 shoulder 4 view completed Not Available [facility] , [address] , [place] , [address], [place] , 03/05/2025 09:39:06 08/06/2025 shoulder 4 view completed Not Available [facility] , [address] , [place] , [address], [place] , 08/06/2025 13:45:22 08/06/2025 shoulder 4 view completed Not Available [facility]e Office , [address] , [place] , [address], [place] , 08/06/2025 13:45:23 10/15/2025 shoulder 4 view completed Not Available [facility] , [address] , [place] , [address], [place] , 10/15/2025 14:34:16 10/15/2025 shoulder 4 view completed Not Available [facility] , [address] , [place] , [address], [place] , 10/15/2025 14:34:18 Procedure Notes None recorded. Medical Equipment None Reported. Allergies Allergen ID Allergen Name Allergen Category Reaction Reaction Severity Criticality Documentation Date Start Date Code Code System Note Provider Name and Address Organization Details Recorded Time 252842 methocarb martín medicatio n Not available Not available Not available 10/15/2025 6845 RxNorm Not Available adalberto - External Data Service - prod 5 04:23:24 312149 morphine medicatio n Not available Not available low 10/15/2025 7052 RxNorm Not Available adalberto - External Data Service - prod 5 04:23:24 920420 Robaxin medicatio n Not available Not available Not available 10/15/2025 82726 5 RxNorm Not Available adalberto - External Data Service - prod 5 04:24:09 338421 amoxicill in medicatio n Not available Not available Not available 10/15/20252018 723 RxNorm Dizzy , nause a, vomit Not Available adalberto - External Data Service - prod 5 04:24:10 728736 gabapenti n medicatio n Not available Not available Not available 10/15/20252017 77131 RxNorm Menta l insta bilit y Not Available adalberto - External Data Service - prod 5 04:24:10 47238 morphine sulfate medicatio n Not available Not available Not available 01/27/20242022 06875 RxNorm Not Available [facility] 4 12:33:19 Medications Name Authored On Sig Start Date Stop Date Status Note Indication Fill Status Repeat Number Dispense Quantity LastModified by Organization Details LastModified Time oxyco done HCl-o xycod one-A SA 4 17:35:06 TAKE 1 TAB QID PRNM UST LAST 2 WEEK S 06/27 aborted Statu s: 'Disc ontin ued'; Not Available Not availab le 0 Not Available Not Available [facility] 01/27/2024 17:35:06 pseud nohemy lovell in ER 80-70 0 mg table t,ext ended relea se 4 17:35:06 Perc ocet 5-32 5MG Tabl et four time s a day 06/27 aborted Statu s: 'Disc ontin ued'; Not Available Not availab le 0 Not Available Not Available [facility] 01/27/2024 17:35:06 baclo fen 5 mg table t 4 15:32:45 TAKE 1 TABL ET BY TRA Fuentes THRE E TIME S A DAY NEED ED FOR MODE RATE PAIN FOR 14 DAYS 03/27 aborted Not Available Not availab le 0 Not Available [place]AN[place]H [place] [facility] 03/27/2024 13:50:50 Binax NOW COVID -19 Ag Self Test kit 4 15:32:45 TEST DIRE CTED TODA Y 03/27 aborted Not Available Not availab le 0 Not Available [place]ANNAH [place] [facility] 03/27/2024 13:50:55 bhargav calci ferol (tyson min D3) 25 mcg (1,00 0 unit) table t 4 15:32:45 TAKE 1 TABL ET BY TRA Fuentes EVER Y DAY IN THE MORN ING 03/27 aborted Not Available Not availab le 0 Not Available HANNAH [place] [facility] 03/27/2024 13:50:59 fluti fariba e propi kaila 50 mcg/a ctuat ion nasal spray ,susp ensio n 4 15:32:45 USE 2 SPRA YS IN EACH NOST RIL KEN Y 03/27 aborted Not Available Not availab le 0 Not Available HANNAH MA [facility] 03/27/2024 13:51:05 hydro xyzin e HCl 50 mg table t 4 15:32:45 PLEA SE SEE ERMIAS CHED FOR DETA ILED DIRE CTIO NS 03/27 aborted Not Available Not availab le 0 Not Available HANNAH CARRENORO [facility] 03/27/2024 13:51:08 ibupr ofen 800 mg table t 4 15:32:45 TAKE 1 TABL ET BY MOUT H THRE E TIME S A DAY NEED ED FOR PAIN FOR 10 DAYS 03/27 aborted Not Available Not availab le 0 Not Available HANNAH BRIDGESEIRO [facility] 03/27/2024 13:51:10 predn isone 10 mg table t 4 15:32:45 PLEA SE SEE ERMIAS CHED FOR DETA ILED DIRE CTIO NS 03/27 aborted Not Available Not availab le 0 Not Available HANNAH BRIDGESEIRO [facility] 03/27/2024 13:51:53 oxyco done 5 mg capsu le 4 15:32:45 TAKE 1 CAPS ULE BY MOUT H EVER Y 6 HOUR S NEED ED FOR PAIN FOR 3 DAYS 04/15 aborted Not Available Not availab le 0 Not Available ROSALIA HERR [facility] 04/17/2024 13:42:09 aspir in 325 mg table t 4 13:25:47 TAKE 1 TABL ET BY MOUT H EVER Y DAY FOR 14 DAYS 07/02 aborted Not Available Not availab le 0 Not Available HANNAH BRIDGESEIRO [facility] 07/02/2024 13:08:40 docus ate sodiu m 100 mg capsu le 4 13:25:47 TAKE 1 CAPS ULE BY MOUT H EVER Y DAY NEED ED 07/02 aborted Not Available Not availab le 0 Not Available HANNAH [place] [facility] 07/02/2024 13:08:46 Lidoc spenser Visco us 2 % mucos al solut ion 4 14:37:56 PLEA SE SEE ERMIAS CHED FOR DETA ILED DIRE CTIO NS 07/02 aborted Not Available Not availab le 0 Not Available HANNAH CARRENORO [facility] 07/02/2024 13:08:49 sucra lfate 100 mg/mL oral suspe nsion 4 14:37:56 TAKE 2.5 ML 4 TIME S PER DAY FOR 10 DAYS 07/02 aborted Not Available Not availab le 0 Not Available HANNAH CARRENORO [facility] 07/02/2024 13:09:07 oxyco done 5 mg table t 4 13:33:31 TAKE 1 TABL ET BY MOUT H EVER Y DAY NEED ED FOR 7 DAYS 07/02 aborted Not Available Not availab le 0 Not Available HANNAH [place] [facility] 07/02/2024 13:09:11 oflox acin 0.3 % eye drops 4 14:37:56 07/02 aborted Not Available Not availab le 0 Not Available HANNAH CARRENORO [facility] 07/02/2024 13:09:15 cyclo benza eliud 5 mg table t 4 16:34:23 08/17 aborted Not Available Not availab le 0 Not Available HANNAH CARRENORO [facility] 08/17/2024 09:55:51 albut paul sulfa te [...] availab le 0 Not Available Not Available [facility] 12/02/2024 06:04:24 amoxi cilli n 875 mg-po tassi um clavu lanat e 125 mg table t 4 06:00:36 TAKE 1 TABL ET BY TRA CONTRERAS E A DAY FOR 5 DAYS 12/18 aborted Not Available Not availab le 0 Not Available [facility] 12/18/2024 15:00:32 benzo natat e 200 mg capsu le 4 05:15:43 12/18 aborted Not Available Not availab le 0 Not Available [facility] 12/18/2024 15:00:38 cyclo benza eliud 10 mg table t 4 15:35:07 12/18 aborted Not Available Not availab le 0 Not Available [facility] 12/18/2024 15:00:44 ibupr ofen 600 mg table t 4 15:35:07 12/18 aborted Not Available Not availab le 0 Not Available [facility] 12/18/2024 15:00:50 melox icam 15 mg table t 4 11:52:05 12/18 aborted Not Available Not availab le 0 Not Available [facility] 12/18/2024 15:00:53 omepr azole 20 mg capsu le,de layed relea se 4 07:05:43 12/18 aborted Not Available Not availab le 0 Not Available [facility] 12/18/2024 15:00:57 sumat ripta n 50 mg table t 4 05:45:44 12/18 aborted Not Available Not availab le 0 Not Available [facility] 12/18/2024 15:01:00 aceta minop hen 500 mg table t 4 14:54:40 Take 2 tabl ets 3 time s a day by oral rout e. 12/18 aborted Instability of right shoulder joint Not availab le 0 Not Available Not Available [facility] 12/18/2024 15:05:21 diclo fenac 1 % topic al gel 4 16:32:17 APPL Y 2 GRAM S TO THE AFFE CTED AREA (S) BY TOPI SHARRI ROUT E 4 TIME S PER DAY for 14 days then may peralta siti on to as need ed use for pain 12/18 aborted Pain of left shoulder joint Not availab le 1 Not Available Not Available [facility] 12/18/2024 15:05:22 napro xen 500 mg table t 4 10:34:05 Take 1 tabl et twic e a day by oral rout e as need ed for 30 days . 12/18 aborted Follow-up orthopedic assessment Not availab le 1 Not Available Not Available [facility] 12/18/2024 15:05:22 trama dol 37.5 mg-ac etami nophe n 325 mg table t 5 13:13:04 1-2 TABL ETS BY TRA Fuentes EVER Y 6 HOUR S NEED ED PART IAL FILL UPON DB ENT REQU EST active Not Available Not availab le 0 Not Available Not Available [facility] 12/27/2024 13:13:04 predn isone 20 mg table t 4 05:15:43 01/22 aborted Not Available Not availab le 0 Not Available HANNAH MA [facility] 01/22/2025 15:28:38 doxyc yclin e hycla te 100 mg table t 5 06:11:52 01/22 aborted Not Available Not availab le 0 Not Available HANNAH [place] [facility] 01/22/2025 15:28:40 propr anolo l 10 [...] 0 Not Available Feli Montana [place] - [facility] 05/31/2025 09:29:50 azith romyc in 250 mg table t 5 10:11:28 TAKE 2 TABL ETS BY MOUT H TODA Y, THEN TAKE 1 TABL ET KEN Y FOR 4 DAYS DIRE CTED 05/31 aborted Not Available Not availab le 0 Not Available Feli Montana [place] - [facility] 05/31/2025 09:30:02 ketoc onazo [...] Updated DateTime 01/22/2025 157.48 cm 21.2 kg/m2 28405.71 g HANNAH MA [facility] 01/22/2025 15:27:50 Date Recorded Body height Body mass index (BMI) Body weight Provider Name and Address Organization Details Last Updated DateTime 03/05/2025 157.48 cm 21.2 kg/m2 48718.71 g HANNAH MA [facility] 03/05/2025 09:32:00 Date Recorded Body height Body mass index (BMI) Body weight Provider Name and Address Organization Details Last Updated DateTime 05/31/2025 157.48 cm 22.9 kg/m2 15061.05 g Feli Montana [facility] 05/31/2025 09:29:39 Date Recorded Body height Body mass index (BMI) Body weight Provider Name and Address Organization Details Last Updated DateTime 08/06/2025 157.48 cm 22.9 kg/m2 27604.05 g Esvin Grace [facility] 08/06/2025 13:32:51 Date Recorded Body height Body mass index (BMI) Body weight Provider Name and Address Organization Details Last Updated DateTime 10/15/2025 157.48 cm 22.9 kg/m2 14567.05 g Esvin Grace [facility] 10/15/2025 14:23:47 Social History Social History Observation Description Date Observed Sex Unknown 11/08/2025 Legal Sex Male Status Not (finding) 11/24/20 25 No social history survey screeners recorded [...] ICD10 Code Diagnosis IMO Codes Diagnosis Note [id number] LAMINE Tobar PT [address] [place] [address] 02/10/2024 15:32:05 02/10/2024 16:24:49 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 [id number] M24.246 [id number] MD Luiz Hartley [address] floor [address] [place] [address] 04/06/2024 15:14:48 04/16/2024 11:23:56 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 [id number] M24.236 [id number] MD Luiz Hartley 2[address] floor [address] [place] [address] 04/17/2024 13:29:33 04/29/2024 15:42:06 Recurrent anterior dislocation of shoulder 161409129 M24.492 [id number] MD Rosibel Hartley [address] [place] [address] 05/01/2024 15:17:33 05/19/2024 15:32:05 History of operative procedure on shoulder 137156831 Z98.840 [id number] Lewis Gandara PA-C [facility] [address] [place] [address] 04/25/2024 13:56:31 04/25/2024 13:58:28 [id number] Michael Karena, PT [facility] [address] [place] [address] 05/15/2024 13:03:31 05/15/2024 14:03:53 Recurrent anterior dislocation of shoulder M24.340 [id number] Danuta Roger, ROLLER PRINTER [facility] [address] [place] [address] 05/26/2024 12:16:20 05/26/2024 13:09:52 Recurrent anterior dislocation of shoulder M24.081 [id number] James Whitfield PA-C [facility] [address] [place] [address] 05/27/2024 10:52:41 06/15/2024 07:49:43 Instability of right shoulder joint [id number] M25.552 [id number] Michael Thurston, PT [facility] [address] [place] [address] 06/01/2024 11:32:14 06/01/2024 12:51:37 Recurrent anterior dislocation of shoulder M24.207 [id number] Michael Thurston, PT [facility] [address] [place] [address] 06/08/2024 10:49:33 06/08/2024 11:36:03 Recurrent anterior dislocation of shoulder M24.711 [id number] Michael Thurston, PT [facility] [address] [place] [address] 06/12/2024 13:05:38 06/12/2024 14:13:40 Recurrent anterior dislocation of shoulder M24.695 [id number] James Whitfield PA-C [facility] [address] [place] [address] 06/12/2024 12:02:18 06/30/2024 09:46:22 Instability of right shoulder joint [id number] M25.469 [id number] Danuta Duran ROLLER PRINTER [facility] [address] [place] [address] 06/16/2024 15:31:12 06/16/2024 16:18:39 Recurrent anterior dislocation of shoulder M24.089 [id number] Danuta Duran ROLLER PRINTER [facility] [address] [place] [address] 06/18/2024 17:59:47 06/18/2024 18:05:10 Recurrent anterior dislocation of shoulder M24.740 [id number] Michael Glendyheidi, PT [facility] [address] [place] [address] 06/22/2024 12:27:58 06/22/2024 13:14:08 Recurrent anterior dislocation of shoulder M24.644 [id number] Danuta Duran ROLLER PRINTER [facility] [address] [place] [address] 06/25/2024 11:59:31 06/25/2024 12:31:08 Recurrent anterior dislocation of shoulder 149822350 M24.944 [id number] Danuta Duran ROLLER PRINTER [facility] [address] [place] [address] 06/29/2024 10:58:41 06/29/2024 11:55:31 Recurrent anterior dislocation of shoulder 021560460 M24.527 [id number] Danuta Duran, ROLLER PRINTER [facility] [address] [place] [address] 07/01/2024 10:57:48 07/01/2024 12:08:25 Recurrent anterior dislocation of shoulder 771443688 M24.620 [id number] MD Kelly Hartleynie 2[address] [place] [address] 07/02/2024 12:57:24 07/29/2024 13:07:25 Pain of right shoulder joint 0638668858 [id number] M25.942 [id number] Danuta Duran, ROLLER PRINTER [facility] [address] [place] [address] 07/06/2024 10:48:38 07/06/2024 11:25:57 Recurrent anterior dislocation of shoulder M24.953 [id number] Danuta Duran ROLLER PRINTER [facility] [address] [place] [address] 07/08/2024 11:02:19 07/08/2024 13:02:16 Recurrent anterior dislocation of shoulder M24.846 [id number] Danuta Duran ROLLER PRINTER [facility] [address] [place] [address] 07/17/2024 13:34:29 07/17/2024 14:14:19 Recurrent anterior dislocation of shoulder M24.936 [id number] Danuta Duran ROLLER PRINTER [facility] [address] [place] [address] 07/20/2024 10:53:42 07/20/2024 11:24:56 Recurrent anterior dislocation of shoulder M24.261 [id number] Danuta Duran ROLLER PRINTER [facility] [address] [place] [address] 07/22/2024 10:55:17 07/22/2024 11:39:03 Recurrent anterior dislocation of shoulder M24.647 [id number] Danuta Duran ROLLER PRINTER [facility] [address] [place] [address] 07/28/2024 10:48:24 07/28/2024 12:24:32 Recurrent anterior dislocation of shoulder M24.902 [id number] Danuta Duran, ROLLER PRINTER [facility] [address] [place] [address] 07/30/2024 10:59:36 07/30/2024 11:59:38 Recurrent anterior dislocation of shoulder M24.268 [id number] Vandana Padgett MD [facility] [address] [place] [address] 10/16/2024 13:53:51 11/16/2024 09:15:25 Chronic pain of right upper limb [id number] M25.511 G89.29 [id number] Pain of le ft shoulder joint 5244055317 [id number] M25.512 [id number] Follow-up orthopedic assessment [id number] Z47.89 [id number] Danuta Duran, ROLLER PRINTER [facility] [address] [place] [address] 08/05/2024 11:01:50 08/05/2024 12:17:01 Recurrent anterior dislocation of shoulder M24.118 [id number] Danuta Duran, ROLLER PRINTER [facility] [address] [place] [address] 08/07/2024 12:58:13 08/07/2024 14:30:04 Recurrent anterior dislocation of shoulder M24.038 [id number] Danuta Duran ROLLER PRINTER [facility] [address] [place] [address] 08/19/2024 10:04:00 08/19/2024 10:48:20 Recurrent anterior dislocation of shoulder [id number] M24.832 [id number] MD Luiz Hartley [address] [place] [address] 08/17/2024 09:48:00 09/08/2024 08:58:20 Follow-up orthopedic assessment [id number] Z47.89 [id number] Danuta Duran [employer] [facility] [address] [place] [address] 08/26/2024 09:16:09 08/26/2024 10:19:39 Recurrent anterior dislocation of shoulder [id number] M24.410 [id number] Michael Thurston, PT [facility] [address] [place] [address] 08/28/2024 13:07:43 08/28/2024 14:44:56 Recurrent anterior dislocation of shoulder [id number] M24.858 [id number] Danuta Roger [employer] [facility] [address] [place] [address] 08/31/2024 10:57:50 08/31/2024 12:12:18 Recurrent anterior dislocation of shoulder M24.331 [id number] Danuta Duran, [facility] [address] [place] [address] 09/02/2024 10:08:01 09/02/2024 10:47:57 Recurrent anterior dislocation of shoulder M24.154 [id number] James Whitfield PA-C [facility] [address] [place] [address] 10/08/2024 11:01:26 10/28/2024 07:19:07 Chronic pain of right upper limb [id number] M25.511 G89.29 [id number] Pain of le ft shoulder joint [id number] M25.512 [id number] James Whitfield PA-C [facility] [address] [place] [address] 11/19/2024 10:19:58 12/09/2024 13:54:18 Pain of left shoulder region [id number] M25.512 [id number] Neck pain 88006460 M54.2 [id number] Sprain of left acromioclavicular ligament [id number] S43.52XD [id number] MD MCKAY Hartley [facility] [address] [place] [address] 01/22/2025 14:43:54 02/08/2025 08:56:53 Follow-up orthopedic assessment [id number] Z47.89 [id number] Michael Thurston, THEE [facility] [address] [place] [address] 12/02/2024 13:04:27 12/02/2024 14:28:44 Recurrent anterior dislocation of shoulder M24.266 [id number] MD MCKAY [facility] [place] [address] [place] [address] 12/18/2024 14:46:11 01/04/2025 08:28:00 Strain of neck muscle [id number] S16.1XXA [id number] Cervical spondylosis 387 [id number] M47.812 [id number] Michael Thurston, PT [facility] [address] [place] [address] 12/22/2024 11:23:25 12/22/2024 12:26:35 Recurrent anterior dislocation of shoulder M24.234 [id number] MD MCKAY Min - [place] [address] [place] [address] 12/30/2024 09:30:34 01/19/2025 10:59:34 Strain of neck muscle [id number] S16.1XXD [id number] Neck pain 55178881 M54.2 73306 [id number] Danuta Duran, ROLL[employer] PRINTER [facility] [address] [place] [address] 12/31/2024 12:35:17 12/31/2024 13:04:59 Recurrent anterior dislocation of shoulder M24.053 [id number] Danuta Roger, ROLL[employer] PRINTER [facility] [address] [place] [address] 01/05/2025 10:58:10 01/05/2025 11:53:56 Recurrent anterior dislocation of shoulder M24.977 [id number] Danuta Duran, ROLL[employer] PRINTER [facility] [address] [place] [address] 01/11/2025 07:34:26 01/11/2025 08:25:10 Recurrent anterior dislocation of shoulder M24.136 [id number] MD MCKYA Hartley [facility] [address] [place] [address] 03/05/2025 09:21:00 03/18/2025 08:55:43 Anterior to posterior tear of superior glenoid labrum of right shoulder [id number] S43.431A [id number] MD MCKAY Hartley [address] [place] [address] 05/31/2025 09:08:25 06/08/2025 13:58:03 Follow-up orthopedic assessment [id number] Z47.89 [id number] MD MCKAY Hartley 2nd floor [address] [place] [address] 08/06/2025 13:19:28 08/11/2025 15:16:42 Pain of right shoulder joint [id number] M25.511 [id number] Follow-up orthopedic assessment [id number] Z47.89 [id number] MD MCKAY [facility] [address] [place] [address] 10/15/2025 14:18:54 10/26/2025 14:10:03 Pain of right shoulder joint [id number] M25.511 [id number] Health Concerns Section Related Observation LastModified by [...] [employer]A Andrew howard [id number] Andrew Tavares 12/30/2024 [employer] [id number] Andrew Tavares 12/29/2024 [employer] [...] the right shoulder ordered and obtained at [facility] 07/02/2024 at the patient's request were reviewed during the visit. These demonstrate two parallel screws transfixing the coracoid graft to the anterior-inferior glenoid. Screws do sit somewhat eccentrically within the graft itself, but no obvious coracoid fracture. No changes from multiple prior xrays. Unchanged appearance of acromion or AC joint. CT of the right shoulder performed at [facility] 10/07/2024 independently reviewed by me and Hindu[employer] during the visit today. This demonstrates 2 [...] AC joints, acromion, proximal humerus. 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 [employer] speech recognition steam hand software was used to create portions of this document. An attempt at proofreading has been made to minimize errors. Please call for corrections. Vandana Padgett MD [address] [place] [address] [address], [place], [address], [facility] 01/22/2025 16:04:21 03/05/2025 text/html [...] the right shoulder ordered and obtained at [facility] today were reviewed during the visit. These [...] CT of the right shoulder performed at [facility] 10/07/2024 independently reviewed by me on [...] AC joints, acromion, proximal humerus. 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 [employer] speech recognition steam hand software was used to create portions of this document. An attempt at proofreading has been made to minimize errors. Please call for corrections. Vandana Padgett MD [address] [place] [address] [address] [facility], [place], [address], [facility] 03/05/2025 10:22:22 05/31/2025 text/html [...] the right shoulder ordered and obtained at [facility] 03/05/2025 were reviewed during the visit. These [...] CT of the right shoulder performed at [facility] 10/07/2024 independently reviewed by me on [...] AC joints, acromion, proximal humerus. 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 [employer] speech recognition steam hand software was used to create portions of this document. An attempt at proofreading has been made to minimize errors. Please call for corrections. Vandana Padgett MD [facility][note 3] [address], [place], [address], [facility] 05/31/2025 10:14:48 08/06/2025 text/html Surgery: Right [...] the right shoulder ordered and obtained at [facility] 03/05/2025 were reviewed during the visit. These [...] CT of the right shoulder performed at [facility] 10/07/2024 independently reviewed by me on [...] AC joints, acromion, proximal humerus. 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 [facility] speech recognition steam hand software was used to create portions of this document. An attempt at proofreading has been made to minimize errors. Please call for corrections. Vandana Padgett MD [address], [place], [address], [facility] 08/06/2025 14:23:57 10/15/2025 text/html [...] the right shoulder ordered and obtained at [facility] today were reviewed during the visit. These [...] CT of the right shoulder performed at [facility] 10/07/2024 independently reviewed by me on [...] AC joints, acromion, proximal humerus. 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 [facility] speech recognition steam hand software was used to create portions of this document. An attempt at proofreading has been made to minimize errors. Please call for corrections. Vandana Padgett MD [address] [place], [place] [address] [address], [place], [address], [facility] 10/15/2025 16:20:56 Care Team Name Role Member ID Specialty Address Phone SABRA SHARMA Primary Care Provider [id number] [place], [place]
--- OUTSIDE RECORDS SUMMARY | 2025-11-24 10:06 | XMS_ITS | Clinical Summary ---
Author Organization [facility] Address [address] [place] [address] Care Team Providers Care Multiple Pressure Riveter Operator Name Role Phone Vilma Madsen MD Primary Care Provider [phone] Surgical History Surgery Date Site/Laterality Comments LEG SURGERY Left PROCEDURE: HISTORICAL LEG SURGERY; COMMENT: delayed union, 14 surgeries lower leg. [facility] Medical History Medical History Date Comments [...] age to complete this topic Care Teams Multiple Pressure Riveter Operator Relationship Specialty Start Date End Date Vilma Madsen MD PCP - General Internal Medicine 09/20/18
--- OUTSIDE RECORDS SUMMARY | 2025-11-24 10:06 | XMS_ITS | Clinical Summary ---
Author Organization [facility] Prior to 04/24/25 Address [address] [place] [address] Care Team Providers Care Lotus Notes Administrator Name Role Phone Vilma Madsen Primary Care [...] age to complete this topic Care Teams Lotus Notes Administrator Relationship Specialty Start Date End Date Vilma Madsen [address] [place] [address] PCP - General Internal Medicine 02/18/19
--- OUTSIDE RECORDS SUMMARY | 2025-11-24 10:06 | XMS_ITS | Encounter Summary ---
Author Organization [facility] Address [address] [place] [address] Phone Care Team Providers Care Locker Plant Attendant Name Role Phone Inna Lutz MD Primary Care Provider [phone] Encounter Details Date Type Department Care Team (Late st Contact Info) Description 01/17/2022 Procedure Pass [facility] Endoscopy Admitting Dept Virtual Department [address] [place] [address] Social History Tobacco Use Types Packs/Day Years [...] on filedocumented in this encounter Care Teams Locker Plant Attendant Relationship Specialty Start Date End Date Inna Lutz MD [address] [place] [id number] PCP - General Internal Medicine 11/08/21 documented as of this encounter Additional Source Comments The information contained in this document represents components of the legal health record. It is not the complete legal health record.[facility]
--- OUTSIDE RECORDS SUMMARY | 2025-11-24 10:06 | XMS_ITS | Continuity of Care Document ---
Author Organization [facility] Address [address] [place] [address] Care Team Providers Care Director Property Name Role Phone Sabra Sharma Primary Care [...] 2024 14:25: 32 025 Vandana Padgett MD [facility] [place] Office [address] [facility] [address], [place], [address], [facility] 10/26/2025 14:10:04 MedicationOrders None record ed. VaccineOrders None record ed. Patient TargetsNo targets recorded. Patient Instructions Encounter Date Encounter Id Patient Instructions Last Modified By Organization Details Last Modified Time 10/15/2025 [id number] Will have Andrew continue with work conditioning, which seems to [...] Detail LastModifiedTime 10/15/2025 10/15/2025 shoulder 4 view [email or web address]=[id number] tiIqdP[id number] Not Available [facility] , [address],[facility] [address] [place] , [address], , 10/15/2025 14:34:16 10/15/2025 10/15/2025 shoulder 4 view [email or web address] [id number]G Not Available [employer] , [address],[facility] [address] , [place] , [address], , 10/15/2025 14:34:18 Result Notes Documentation Provider Name and Address Organization Details Recorded Time Xr, Shoulder, 2 Or More View : [email or web address] Encrypted=vfNdIfrDU2sTmfT Uv6g%3NTYidRrkpb8woai%2Fg 5ADf3nvIkpZ9kFdVUpcsZh1Fz [id number] 0JT3KbM3zUYfCsZrZcpClX Not Available [facility] 10/15/2025 14:34: 16 Xr, Shoulder, 2 Or More View : [email or web address] 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 James Whitfield PA-C [address], [place], [address], [facility] 4 06:51:09 Pain of right shoulder joint 6269453707915 9100 Active 2023 [facility] 4 09:54:39 Chronic pain of right upper limb 3939161032141 9108 Active 2023 James Whitfield PA-C [address], [place], [address], [facility] 4 11:12:47 Pain of left shoulder joint 6537329299332 9109 Active 2023 James Whitfield PA-C [address], [place], [address], [facility] 4 11:32:24 Pain of left shoulder region Active 2023 James Whitfield PA-C [address], [place], [address], [facility] 4 10:48:08 Neck pain 62619356 Active 2023 Mitch San MD [address], [place], [address], [facility] 5 10:59:05 Sprain of left acromioclav icular ligament 3325228613539 9103 Active 2023 James Whitfield PA-C [address], [place], [address], [facility] 4 11:19:57 Cervical spondylosis 497591743 Active 2024 Mitch San MD [address], [place], [address], [facility] 5 16:34:54 Strain of neck muscle 035713252 Active 2024 Mitch San MD [address], [place], [address], [facility] 5 16:34:56 Problem Notes None recorded. Procedures Surgical History Date Name Laterality Status Provider Name and Address Organization Details Recorded Time 5 65882 Therapeutic Exercise (1:1) completed Danuta Duran PTA [address], [place], [address], [facility] 01/06/2025 13:44:44 5 66710: Manual therapy completed MARIO [address], [place], [address], [facility] 01/06/2025 13:44:44 5 18724 Therapeutic Exercise (1:1) completed Danuta Duran PTA [address], [place], [address], [facility] 01/01/2025 07:13:25 5 70199: Manual therapy completed Danuta Duran, WEBBING SUPERVISOR [address], [place], [address], [facility] 01/01/2025 07:13:25 5 75535 Therapeutic Exercise (1:1) completed Danuta Duran, WEBBING SUPERVISOR [address], [place], [address], [facility] 12/30/2024 11:02:27 5 18087: Manual therapy completed Danuta Duran WEBBING SUPERVISOR [address], [place], [address], [facility] 12/30/2024 11:02:27 5 07984 Therapeutic Exercise (1:1) cancelled Danuta Duran WEBBING SUPERVISOR [address], [place], [address], [facility] 12/28/2024 06:41:48 5 83063: Manual therapy cancelled Danuta Duran PTA [address], [place], [address], [facility] 12/28/2024 06:41:48 5 82562 Therapeutic Exercise (1:1) cancelled Michael Thurston, PT [address], [place], [address], [facility] 12/24/2024 06:51:08 5 67803: Manual therapy cancelled Michael Thurston, PT [address], [place], [address], [facility] 12/24/2024 06:51:08 5 38347 Therapeutic Exercise (1:1) completed Michael Thurston, PT [address], [place], [address], [facility] 12/22/2024 12:29:47 5 58322: Manual therapy completed Michael Glendyek, PT [address], [place], [address], [facility] 12/22/2024 12:29:56 5 73762 Therapeutic Exercise (1:1) cancelled Michael Glendyek, PT [address], [place], [address], [facility] 12/16/2024 17:30:22 5 05585: Low complexity PT Eval cancelled Michael Florek, PT [address], [place], [address], [facility] 12/16/2024 17:30:22 5 29371 Therapeutic Exercise (1:1) completed Michaelmor Pikeek, PT [address], [place], [address], [facility] 12/02/2024 13:25:08 5 34806: Low complexity PT Eval completed Michael Glendyek, PT [address], [place], [address], [facility] 12/02/2024 13:25:08 5 08032 Therapeutic Exercise (1:1) cancelled Michaelmor Pikeek, PT [address], [place], [address], [facility] 12/02/2024 05:35:53 5 50620: Hot or Cold Pack cancelled Michael Florek, PT [address], [place], [address], [facility] 12/02/2024 05:35:53 5 07017: Manual therapy cancelled Michael Florek, PT [address], [place], [address], [facility] 12/02/2024 05:35:53 4 62772 Therapeutic Exercise (1:1) cancelled Michael Florek, PT [address], [place], [address], [facility] 09/22/2024 06:41:31 4 99249: Hot or Cold Pack cancelled Michaelmor Thurston, PT [address], [place], [address], [facility] 09/22/2024 06:41:31 4 05879: Manual therapy cancelled Michael Thurston, PT [address], [place], [address], [facility] 09/22/2024 06:41:31 4 30458 Therapeutic Exercise (1:1) cancelled Michael Thurston, PT [address], [place], [address], [facility] 09/14/2024 12:23:31 4 28922: Hot or Cold Pack cancelled Michael Thurston, PT [address], [place], [address], [facility] 09/14/2024 12:23:31 4 50197: Manual therapy cancelled Michael Thurston, PT [address], [place], [address], [facility] 09/14/2024 12:23:31 4 69726 Therapeutic Exercise (1:1) cancelled Danuta Duran, WEBBING SUPERVISOR [address], [place], [address], [facility] 09/08/2024 17:28:34 4 58206: Hot or Cold Pack cancelled Danuta Duran, WEBBING SUPERVISOR [address], [place], [address], [facility] 09/08/2024 17:28:34 4 22328: Manual therapy cancelled Danuta Duran, WEBBING SUPERVISOR [address], [place], [address], [facility] 09/08/2024 17:28:34 4 45833 Therapeutic Exercise (1:1) completed Danuta Duran WEBBING SUPERVISOR [address], [place], [address], [facility] 09/01/2024 14:05:39 4 53040: Hot or Cold Pack completed Danuta Duran WEBBING SUPERVISOR [address], [place], [address], [facility] 09/01/2024 14:05:39 4 51253: Manual therapy completed Danuta Duran WEBBING SUPERVISOR [address], [place], [address], [facility] 09/01/2024 14:05:39 59641 Therapeutic Exercise (1:1) completed Danuta Duran WEBBING SUPERVISOR [address], [place], [address], [facility] 08/31/2024 08:08:26 4 78789: Hot or Cold Pack completed Danuta Duran WEBBING SUPERVISOR [address], [place], [address], [facility] 08/31/2024 08:08:26 4 50626: Manual therapy completed Danuta Duran WEBBING SUPERVISOR [address], [place], [address], [facility] 08/31/2024 08:08:26 4 35576 Therapeutic Exercise (1:1) completed Danuta Duran, WEBBING SUPERVISOR [address], [place], [address], [facility] 08/28/2024 07:12:27 4 66028: Hot or Cold Pack completed Danuta Duran, WEBBING SUPERVISOR [address], [place], [address], [facility] 08/28/2024 07:12:27 4 32236: Manual therapy completed Danuta Duran PTA [address], [place], [address], [facility] 08/28/2024 07:12:27 4 78766 Therapeutic Exercise (1:1) completed Danuta Duran PTA [address], [place], [address], [facility] 08/24/2024 15:15:24 4 88398: Hot or Cold Pack completed Danuta Duran PTA [address], [place], [address], [facility] 08/24/2024 15:15:24 4 74973: Manual therapy completed Danuta Duran PTA [address], [place], [address], [facility] 08/24/2024 15:15:24 4 96582 Therapeutic Exercise (1:1) completed Danuta Duran PTA [address], [place], [address], [facility] 08/17/2024 06:50:55 4 26494: Hot or Cold Pack completed Danuta Duran PTA [address], [place], [address], [facility] 08/17/2024 06:50:55 4 40505: Manual therapy completed Danuta Duran PTA [address], [place], [address], [facility] 08/17/2024 06:50:55 98097 Therapeutic Exercise (1:1) cancelled Danuta Gardunoer WEBBING SUPERVISOR [address], [place], [address], [facility] 08/11/2024 15:24:58 45368: Hot or Cold Pack cancelled Danuta Duran WEBBING SUPERVISOR [address], [place], [address], [facility] 08/11/2024 15:24:58 4 86578: Manual therapy cancelled Danuta Duran PTA [address], [place], [address], [facility] 08/11/2024 15:24:58 4 51956 Therapeutic Exercise (1:1) cancelled Danuta Duran PTA [address], [place], [address], [facility] 08/09/2024 10:41:48 4 42745: Hot or Cold Pack cancelled Danuta Duran WEBBING SUPERVISOR [address], [place], [address], [facility] 08/09/2024 10:41:48 4 07253: Manual therapy cancelled Danuta Duran PTA [address], [place], [address], [facility] 08/09/2024 10:41:48 4 50748 Therapeutic Exercise (1:1) completed Danuta Duran PTA [address], [place], [address], [facility] 08/06/2024 16:26:53 4 53442: Hot or Cold Pack completed Danuta DuranMARIO [address], [place], [address], [facility] 08/06/2024 16:26:53 4 58657: Manual therapy completed Danuta Gardunoricha WEBBING SUPERVISOR [address], [place], [address], [facility] 08/06/2024 16:26:53 4 78796 Therapeutic Exercise (1:1) completed Danuta Duran WEBBING SUPERVISOR [address], [place], [address], [facility] 08/04/2024 14:07:25 4 79662: Hot or Cold Pack completed Danuta Duran, WEBBING SUPERVISOR [address], [place], [address], [facility] 08/04/2024 14:07:25 4 48416: Manual therapy completed Danuta Duran, WEBBING SUPERVISOR [address], [place], [address], [facility] 08/04/2024 14:07:25 4 54509 Therapeutic Exercise (1:1) cancelled Danuta Duran, WEBBING SUPERVISOR [address], [place], [address], [facility] 07/31/2024 16:29:11 4 24819: Hot or Cold Pack cancelled Danuta Duran, WEBBING SUPERVISOR [address], [place], [address], [facility] 07/31/2024 16:29:11 4 27030: Manual therapy cancelled Danuta Duran, WEBBING SUPERVISOR [address], [place], [address], [facility] 07/31/2024 16:29:11 4 41992 Therapeutic Exercise (1:1) completed Danuta Duran, WEBBING SUPERVISOR [address], [place], [address], [facility] 07/29/2024 12:20:26 4 28615: Hot or Cold Pack completed Danuta Duran, WEBBING SUPERVISOR [address], [place], [address], [facility] 07/29/2024 12:20:26 4 03755: Manual therapy completed Danuta Duran, WEBBING SUPERVISOR [address], [place], [address], [facility] 07/29/2024 12:20:26 4 21995 Therapeutic Exercise (1:1) completed Danuta Duran, WEBBING SUPERVISOR [address], [place], [address], [facility] 07/24/2024 21:21:57 4 47236: Hot or Cold Pack completed Danuta Duran WEBBING SUPERVISOR [address], [place], [address], [facility] 07/24/2024 21:21:57 4 14780: Manual therapy completed Danuta Duran PTA [address], [place], [address], [facility] 07/24/2024 21:21:57 4 61601 Therapeutic Exercise (1:1) completed Danuta Duran PTA [address], [place], [address], [facility] 07/21/2024 15:20:38 4 72245: Hot or Cold Pack completed Danuta Duran PTA [address], [place], [address], [facility] 07/21/2024 15:20:38 4 35017: Manual therapy completed Danuta Duran PTA [address], [place], [address], [facility] 07/21/2024 15:20:38 4 14325 Therapeutic Exercise (1:1) completed Danuta Duran PTA [address], [place], [address], [facility] 07/18/2024 15:45:22 4 89142: Hot or Cold Pack completed Danuta Duran PTA [address], [place], [address], [facility] 07/18/2024 15:45:22 4 96126: Manual therapy completed Danuta Duran PTA [address], [place], [address], [facility] 07/18/2024 15:45:22 4 68442 Therapeutic Exercise (1:1) completed Danuta Duran WEBBING SUPERVISOR [address], [place], [address], [facility] 07/13/2024 15:17:27 4 11592: Hot or Cold Pack completed Danuta Duran WEBBING SUPERVISOR [address], [place], [address], [facility] 07/13/2024 15:17:27 4 55624: Manual therapy completed Danuta Duran WEBBING SUPERVISOR [address], [place], [address], [facility] 07/13/2024 15:17:27 4 13543 Therapeutic Exercise (1:1) cancelled Michael Thurston, PT [address], [place], [address], [facility] 07/16/2024 06:56:14 4 74469: Hot or Cold Pack cancelled Michael Thurston, PT [address], [place], [address], [facility] 07/16/2024 06:56:14 4 44721: Manual therapy cancelled Michael Thurston, PT [address], [place], [address], [facility] 07/16/2024 06:56:14 4 20629 Therapeutic Exercise (1:1) completed Danuta Duran, WEBBING SUPERVISOR [address], [place], [address], [facility] 07/08/2024 12:48:52 4 40081: Hot or Cold Pack completed Danuta Duran, WEBBING SUPERVISOR [address], [place], [address], [facility] 07/07/2024 16:05:32 4 90529: Manual therapy completed Danuta Duran WEBBING SUPERVISOR [address], [place], [address], [facility] 07/07/2024 16:05:32 4 08296 Therapeutic Exercise (1:1) completed Danuta Duran PTA [address], [place], [address], [facility] 07/03/2024 12:00:20 4 96331: Hot or Cold Pack completed Danuta Duran WEBBING SUPERVISOR [address], [place], [address], [facility] 07/03/2024 12:00:20 4 91406: Manual therapy completed Danuta Duran PTA [address], [place], [address], [facility] 07/03/2024 12:00:20 4 06341 Therapeutic Exercise (1:1) completed Danuta Duran PTA [address], [place], [address], [facility] 06/30/2024 17:33:45 4 41627: Hot or Cold Pack completed Danuta Duran PTA [address], [place], [address], [facility] 06/30/2024 17:33:45 4 54679: Manual therapy completed Danuta Duran PTA [address], [place], [address], [facility] 06/30/2024 17:33:45 4 18775 Therapeutic Exercise (1:1) completed Danuta Duran WEBBING SUPERVISOR [address], [place], [address], [facility] 06/28/2024 18:37:48 4 72258: Hot or Cold Pack completed Danuta Duran WEBBING SUPERVISOR [address], [place], [address], [facility] 06/28/2024 18:37:48 4 38471: Manual therapy completed aDnuta Duran PTA [address], [place], [address], [facility] 06/28/2024 18:37:48 4 82245 Therapeutic Exercise (1:1) completed Danuta Duran PTA [address], [place], [address], [facility] 06/24/2024 14:43:05 4 55891: Hot or Cold Pack completed Danuta Duran PTA [address], [place], [address], [facility] 06/24/2024 14:43:05 4 43428: Manual therapy completed Danuta Duran PTA [address], [place], [address], [facility] 06/24/2024 14:43:05 4 39685 Therapeutic Exercise (1:1) completed Michael Thurston PT [address], [place], [address], [facility] 06/23/2024 05:24:29 4 52900: Hot or Cold Pack completed Michael Thurston PT [address], [place], [address], [facility] 06/23/2024 05:22:26 4 23016: Manual therapy completed Michael Thurston PT [address], [place], [address], [facility] 06/23/2024 05:24:26 4 71817 Therapeutic Exercise (1:1) completed Danuta Duran PTA [address], [place], [address], [facility] 06/17/2024 12:59:58 4 75584: Hot or Cold Pack completed Danuta Duran, WEBBING SUPERVISOR [address], [place], [address], [facility] 06/17/2024 12:59:58 4 33354: Manual therapy completed Danuta Duran, WEBBING SUPERVISOR [address], [place], [address], [facility] 06/17/2024 12:59:58 4 36946 Therapeutic Exercise (1:1) completed Danuta Duran, WEBBING SUPERVISOR [address], [place], [address], [facility] 06/15/2024 15:18:55 4 89617: Hot or Cold Pack completed Danuta Duran, WEBBING SUPERVISOR [address], [place], [address], [facility] 06/15/2024 15:18:55 4 74615: Manual therapy completed Danuta Duran, WEBBING SUPERVISOR [address], [place], [address], [facility] 06/15/2024 15:18:55 4 27506 Therapeutic Exercise (1:1) completed Michael Thurston, PT [address], [place], [address], [facility] 06/11/2024 08:35:04 4 84010: Hot or Cold Pack completed Michael Thurston, PT [address], [place], [address], [facility] 06/11/2024 08:35:04 4 53353: Manual therapy completed Michael Thurston, PT [address], [place], [address], [facility] 06/11/2024 08:35:04 4 37540 Therapeutic Exercise (1:1) completed Michael Thurston, PT [address], [place], [address], [facility] 06/08/2024 06:41:08 4 47126: Hot or Cold Pack completed Michael Glendyek, PT [address], [place], [address], [facility] 06/08/2024 06:41:08 4 38613: Manual therapy completed Michaelmor Pikeek, PT [address], [place], [address], [facility] 06/08/2024 06:41:08 4 22203 Therapeutic Exercise (1:1) cancelled Michael Karena, PT [address], [place], [address], [facility] 06/03/2024 07:05:05 4 74976: Hot or Cold Pack cancelled Michael Glendyek, PT [address], [place], [address], [facility] 06/03/2024 07:05:05 4 63894: Manual therapy cancelled Michaelmor Thurston, PT [address], [place], [address], [facility] 06/03/2024 07:05:05 4 48878 Therapeutic Exercise (1:1) completed Michaelmor Thurston, PT [address], [place], [address], [facility] 06/01/2024 08:17:00 4 90258: Hot or Cold Pack completed Michael Karena, PT [address], [place], [address], [facility] 06/01/2024 08:17:00 4 92639: Manual therapy completed Michaelmor Thurston, PT [address], [place], [address], [facility] 06/02/2024 06:13:36 4 88690 Therapeutic Exercise (1:1) completed Danuta Duran [employer]BBING SUPERVIS[employer] [address] [facility], [place], [address], [facility] 05/26/2024 13:25:19 4 35461: Hot or Cold Pack completed Danuta Duran WEBBING SUPERVISOR [address], [place], [address], [facility] 05/26/2024 13:25:13 4 47146: Manual therapy completed Danuta Duran WEBBING SUPERVISOR [address], [place], [address], [facility] 05/26/2024 13:25:21 4 47557 Therapeutic Exercise (1:1) completed Michael Thurston, PT [address], [place], [address], [facility] 05/15/2024 14:11:41 4 78082: Low complexity PT Eval completed Michael Thurston, PT [address], [place], [address], [facility] 05/15/2024 14:11:47 4 Shoulder Surgery completed HANNAH MA [facility] 02/18/2025 08:28:24 4 76622 Therapeutic Exercise (1:1) completed LILIANA TobarT [address], [place], [address], [facility] 02/11/2024 10:54:58 4 92104: Manual therapy completed LILIANA TobarT [address], [place], [address], [facility] 02/11/2024 10:57:19 Ankle/Foot Surgery completed ROSALIA HERR [facility] 04/17/2024 13:42:05 Other completed ROSALIA HERR [facility] 04/17/2024 13:42:05 Imaging Results Imaging Date Name Status LastModifiedBy Organiza tion Detail LastModifiedTime 10/15/2025 shoulder 4 view completed Not Available [facility] , [address] , [place] , [address], , 10/15/2025 14:34:16 10/15/2025 shoulder 4 view completed Not Available [facility] , [address] , [place] , [address], [place] , 10/15/2025 14:34:18 Procedure Notes None recorded. Medical Equipment None Reported. Allergies Allergen ID Allergen Name Allergen Category Reaction Reaction Severity Criticality Documentation Date Start Date Code Code System Note Provider Name and Address Organization Details Recorded Time 574889 methocarb martín medicatio n Not available Not available Not available 10/15/2025 6845 RxNorm Not Available adalberto [employer] - prod 5 04:23:24 320606 morphine medicatio n Not available Not available low 10/15/2025 7052 RxNorm Not Available adalberto - External [employer] - prod 5 04:23:24 878698 Robaxin medicatio n Not available Not available Not available 10/15/2025 64943 5 RxNorm Not Available adalberto - [employer] - prod 5 04:24:09 600943 amoxicill in medicatio n Not available Not available Not available 10/15/20252018 723 RxNorm Dizzy , nause a, vomit Not Available adalberto - External Data [employer] - prod 5 04:24:10 573379 gabapenti n medicatio n Not available Not available Not available 10/15/20252017 23600 RxNorm Menta l insta bilit y Not Available [employer] - prod 5 04:24:10 01236 morphine sulfate medicatio n Not available Not available Not available 01/27/20242022 75397 RxNorm Not Available [facility] 4 12:33:19 Medications Name Authored On Sig Start Date Stop Date Status Note Indication Fill Status Repeat Number Dispense Quantity LastModified by Organization Details LastModified Time oxyco done HCl-o xycod one-A SA 4 17:35:06 TAKE 1 TAB QID PRNM UST LAST 2 WEEK S 06/27 aborted Statu s: 'Disc ontin ued'; Not Available Not availab le 0 Not Available Not Available [facility] 01/27/2024 17:35:06 pseud nohemy lovell in ER 80-70 0 mg table t,ext ended relea se 4 17:35:06 Perc ocet 5-32 5MG Tabl et four time s a day 06/27 aborted Statu s: 'Disc ontin ued'; Not Available Not availab le 0 Not Available Not Available [facility] 01/27/2024 17:35:06 baclo fen 5 mg table t 4 15:32:45 TAKE 1 TABL ET BY TRA MCINTOSH E TIME S A DAY NEED ED FOR MODE RATE PAIN FOR 14 DAYS 03/27 aborted Not Available Not availab le 0 Not Available HANNAH MA [facility] 03/27/2024 13:50:50 Binax NOW COVID -19 Ag Self Test kit 4 15:32:45 TEST DIRE CTED TODA Y 03/27 aborted Not Available Not availab le 0 Not Available HANNAH MA [facility] 03/27/2024 13:50:55 bhargav calci ferol (tyson min D3) 25 mcg (1,00 0 unit) table t 4 15:32:45 TAKE 1 TABL ET BY TRA Fuentes EVER Y DAY IN THE MORN ING 03/27 aborted Not Available Not availab le 0 Not Available HANNAH MA [facility] 03/27/2024 13:50:59 fluti fariba e propi kaila 50 mcg/a ctuat ion nasal spray ,susp ensio n 4 15:32:45 USE 2 SPRA YS IN EACH NOST RIL KEN Y 03/27 aborted Not Available Not availab le 0 Not Available HANNAH FRANCESCA [facility] 03/27/2024 13:51:05 hydro xyzin e HCl 50 mg table t 4 15:32:45 PLEA SE SEE ERMIAS CHED FOR DETA ILED DIRE CTIO NS 03/27 aborted Not Available Not availab le 0 Not Available HANNAH MA [facility] 03/27/2024 13:51:08 ibupr ofen 800 mg table t 4 15:32:45 TAKE 1 TABL ET BY MOUT H THRE E TIME S A DAY NEED ED FOR PAIN FOR 10 DAYS 03/27 aborted Not Available Not availab le 0 Not Available HANNAH [facility] 03/27/2024 13:51:10 predn isone 10 mg table t 4 15:32:45 PLEA SE SEE ERMIAS CHED FOR DETA ILED DIRE CTIO NS 03/27 aborted Not Available Not availab le 0 Not Available HANNAH MA [facility] 03/27/2024 13:51:53 oxyco done 5 mg capsu le 4 15:32:45 TAKE 1 CAPS ULE BY MOUT H EVER Y 6 HOUR S NEED ED FOR PAIN FOR 3 DAYS 04/15 aborted Not Available Not availab le 0 Not Available ROSALIA HERR [facility] 04/17/2024 13:42:09 aspir in 325 mg table t 4 13:25:47 TAKE 1 TABL ET BY MOUT H EVER Y DAY FOR 14 DAYS 07/02 aborted Not Available Not availab le 0 Not Available HANNAH AM [facility] 07/02/2024 13:08:40 docus ate sodiu m 100 mg capsu le 4 13:25:47 TAKE 1 CAPS ULE BY MOUT H EVER Y DAY NEED ED 07/02 aborted Not Available Not availab le 0 Not Available HANNAH AM [facility] 07/02/2024 13:08:46 Lidoc spenser Visco us 2 % mucos al solut ion 4 14:37:56 PLEA SE SEE ERMIAS CHED FOR DETA ILED DIRE CTIO NS 07/02 aborted Not Available Not availab le 0 Not Available HANNAH MA [facility] 07/02/2024 13:08:49 sucra lfate 100 mg/mL oral suspe nsion 4 14:37:56 TAKE 2.5 ML 4 TIME S PER DAY FOR 10 DAYS 07/02 aborted Not Available Not availab le 0 Not Available HANNAH MA [facility] 07/02/2024 13:09:07 oxyco done 5 mg table t 4 13:33:31 TAKE 1 TABL ET BY TRA Fuentes EVER Y DAY NEED ED FOR 7 DAYS 07/02 aborted Not Available Not availab le 0 Not Available HANNAH MA [facility] 07/02/2024 13:09:11 oflox acin 0.3 % eye drops 4 14:37:56 07/02 aborted Not Available Not availab le 0 Not Available HANNAH MA [facility] 07/02/2024 13:09:15 cyclo benza eliud 5 mg table t 4 16:34:23 08/17 aborted Not Available Not availab le 0 Not Available HANNAH MA [facility] 08/17/2024 09:55:51 albut paul sulfa te HFA 90 mcg/a ctuat ion aeros ol inhal er 4 05:15:43 active Not Available Not availab le 0 Not Available Not Available [facility] 11/19/2024 05:15:43 tizan idine 4 mg table [...] Not availab le 0 Not Available Meghan [facility] 12/18/2024 15:00:32 benzo natat e 200 mg capsu le 4 05:15:43 12/18 aborted Not Available Not availab le 0 Not Available [facility] 12/18/2024 15:00:38 cyclo benza eliud 10 mg table t 4 15:35:07 12/18 aborted Not Available Not availab le 0 Not Available [facility] 12/18/2024 15:00:44 ibupr ofen 600 mg table t 4 15:35:07 12/18 aborted Not Available Not availab le 0 Not Available [facility] 12/18/2024 15:00:50 melox icam 15 mg table t 4 11:52:05 12/18 aborted Not Available Not availab le 0 Not Available Meghan [facility] 12/18/2024 15:00:53 omepr azole 20 mg capsu le,de layed relea se 4 07:05:43 12/18 aborted Not Available Not availab le 0 Not Available Meghan [facility] 12/18/2024 15:00:57 sumat ripta n 50 mg table t 4 05:45:44 12/18 aborted Not Available Not availab le 0 Not Available Meghan [facility] 12/18/2024 15:01:00 aceta minop hen 500 mg [...] 0 Not Available [place] [facility] 01/22/2025 15:28:38 doxyc yclin e hycla te 100 mg table t 5 06:11:52 01/22 aborted Not Available Not availab le 0 Not Available HANNAH [place] [facility] 01/22/2025 15:28:40 propr anolo [...] 0 Not Available Feli Montana [place] [facility] 05/31/2025 09:29:50 azirma macarioyc in 250 mg table t 10:11:28 TAKE 2 TABL ETS BY MOUT H TODA Y, THEN TAKE 1 TABL ET KEN Y FOR 4 DAYS DIRE CTED 05/31 aborted Not Available Not availab le 0 Not Available Feli [place] [facility] 05/31/2025 09:30:02 ketoc onazo [...] Updated DateTime 10/15/2025 157.48 cm 22.9 kg/m2 91611.05 g Esvin Grace [place] [facility] 10/15/2025 14:23:47 Social History Social History Observation Description Date Observed Sex Unknown 10/15/2025 Legal Sex Male Status Not (finding) 11/24/20 [...] Disease N Heart Trouble N Heart Attack ([place]) N Gastrointestinal Disease N Cholesterol N Diabetes [...] ICD10 Code Diagnosis IMO Codes Diagnosis Note [id number] [place] [address] 10/15/2025 14:18:54 10/26/2025 14:10:03 Pain of right shoulder joint 2753450209 2041305 M25.511 [id number] Health Concerns Section Related Observation LastModified by [...] the right shoulder ordered and obtained at [facility] today were reviewed during the visit. These [...] CT of the right shoulder performed at [facility] 10/07/2024 independently reviewed by me on [...] AC joints, acromion, proximal humerus. 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 [facility] speech recognition ict help desk technician software was used to create portions of this document. An attempt at proofreading has been made to minimize errors. Please call for corrections. Vandana Padgett MD [address] [place], [place] [address] [address], [place], [address], [facility] 10/15/2025 16:20:56 Care Team Name Role Member ID Specialty Address Phone SABRA SHARMA Primary Care Provider [phone] [facility] [place]
--- OUTSIDE RECORDS SUMMARY | 2025-11-24 10:06 | XMS_ITS | Encounter Summary ---
Author Organization [facility] Address [address] [place] [address] Phone Care Team Providers Care Manager Learning Name Role Phone Inna Lutz MD Primary Care Provider [phone] Encounter Details Date Type Department Care Team (Late st Contact Info) Description 11/09/2021 Transcribe Orders Virtual Department [address] [place] [address] Barb Coleman NP [address] [place] [address] Social History Tobacco Use Types Packs/Day Years [...] on filedocumented in this encounter Care Teams Manager Learning Relationship Specialty Start Date End Date Inna Lutz MD [address] [place] [address] PCP - General Internal Medicine 11/08/21 documented as of this encounter Additional Source Comments The information contained in this document represents components of the legal health record. It is not the complete legal health record.[facility]
--- OUTSIDE RECORDS SUMMARY | 2025-11-24 10:06 | XMS_ITS | Encounter Summary ---
Author Organization [facility] Address [address] [place] [address] Phone Care Team Providers Care Chief Fundraising Officer Name Role Phone Inna Lutz MD Primary Care Provider [phone] Encounter Details Date Type Department Care Team (Latest Contact Info) Description 11/09/2021 Transcribe Orders Virtual Department [address] [place] [address] Barb Coleman NP 10 [place] [address] Abdominal pain, unspecified abdominal location (Primary Dx); [...] anus documented in this encounter Care Teams Chief Fundraising Officer Relationship Specialty Start Date End Date Inna Lutz MD [address] [place] [address] PCP - General Internal Medicine 11/08/21 documented as of this encounter Additional Source Comments The information contained in this document represents components of the legal health record. It is not the complete legal health record.[facility]
--- OUTSIDE RECORDS SUMMARY | 2025-11-24 10:06 | XMS_ITS | Data Portability ---
Author Organization [place] [facility] Address [address] [address] Care Team Providers Care House Rn Name Role Phone SABRA MEYER Primary Care [...] this. 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; Note: Date Diagnosed: 10/23/2021 1:50 PM (M95.0) Not Available [facility] 4 02:46:42 Migraine 44837253 Active 2020 Other migraine, not intractabl e, without status migrainosu s; Note: Date Diagnosed: 10/23/2021 1:50 PM (G43.809) Not Available [facility] 4 02:46:39 Deviated nasal septum 492151575 Active 2020 Deviated nasal septum; Note: Date Diagnosed: 10/23/2021 1:50 PM (J34.2) Not Available [facility] 4 02:46:40 Nasal obstructi on 786862097 Active 2024 CEZAR LIM MD [address] [place] [address], [place], [address] , [facility] 5 12:24:33 Hypertrop hy of nasal turbinate s 89066317 Active 2024 CEZAR LIM MD [address] [place] [address], [place], [address] , [facility] 5 12:24:53 Problem Notes None recorded. Medical Equipment None Reported. Allergies Allergen ID Allergen Name Allergen Category Reaction Reaction Severity Criticality Documentation Date Start Date Code Code System Note Provider Name and Address Organization Details Recorded Time 082247 Robaxin medicatio n other Not available Not available 04/07/2024 5 RxNorm React ion: Unkno wn; Not Available [facility] 4 01:20:02 Medications Name Sig Start Date [...] Updated DateTime 12/30/2024 157.48 cm 22.9 kg/m2 04607.05 g Qian Montes [place] [facility] 12/30/2024 13:52:43 Date Recorded Body height Body mass index (BMI) Body weight Provider Name and Address Organization Details Last Updated DateTime 02/02/2025 157.48 cm 22.9 kg/m2 20668.05 g RONNIE CRONIN [place] [facility] 02/02/2025 09:46:30 Social History None recorded. Functional Status None recorded. Mental Status None recorded. Family History Nothing Reported. Medical History No medical history recorded. Past Encounters Encounter ID Performer Location Encounter Start Date Encounter Closed Date Diagnosis/Indication Diagnosis SNOMED-CT Code Diagnosis ICD10 Code Diagnosis IMO Codes Diagnosis Note [id number] OSMAN IBRAHIM PA-C [facility] [address] [address] 12/30/2024 13:46:16 12/30/2024 14:09:56 Deviated nasal septum 049883238 J34.2 Acquired d eformity of nose 68215242 M95.0 [id number] CEZAR LIM MD [facility] [address] [place] [address] 02/02/2025 09:37:59 02/02/2025 11:58:42 Nasal obstruction 533368189 J34.89 Deviated nasal septum 12 1384525 J34.2 Hypertroph y of nasal turbinates 50932643 J34.3 Health Concerns Section Related Observation LastModified by Organization Detai ls LastModified Time None Recorded Concern Status LastModified by Organization Details LastModified Time None Recorded Advance Directives Directive None Recorded Payers Insurance Date Sequence Insurance Name Policy Number Policy Robles Covered Member ID Robles Member ID Guarantor Name 03/12/2025 1 [employer] 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 02/02/2025 12:29:20
--- OUTSIDE RECORDS SUMMARY | 2025-11-24 10:06 | XMS_ITS | Clinical Summary ---
Author Organization [facility] Address [address] [place], [place] [address] Phone Care Team Providers Care Media Supervisor Name Role Phone Inna Lutz MD Primary Care Provider [phone] Social History Tobacco Use Types Packs/Day Years [...] file Group ID:Not on file Type:Medicaid Address: [facility], [address] [employer] NET PARTIAL Member Subscriber Plan / Payer (Ef fective 2017-Present) Name:Tim Aleman Relation to Subscriber:Self Name:Tim Aleman Payer ID:Not on file Group ID:Not on file Type:Medicaid Address: [address] [employer] NET PARTIAL Member Subscriber Plan / Payer (Ef fective 2017-Present) Name:Tim Aleman Relation to Subscriber:Self Name:Tim Aleman Payer ID:Not on file Group ID:Not on file Type:Medicaid Address: [address] [employer] NET PARTIAL Member Subscriber Plan / Payer (Ef fective 2017-Present) Name:Tim Aleman Relation to Subscriber:Self Name:Tim Aleman Payer ID:Not on file Group ID:Not on file Type:Medicaid Address: [address] [employer] NET PARTIAL Member Subscriber Plan / Payer (Ef fective 2017-Present) Name:Tim Aleman Relation to Subscriber:Self Name:Tim Aleman Payer ID:Not on file Group ID:Not on file Type:Medicaid Address: [address] [employer] NET PARTIAL Member Subscriber Plan / Payer (Ef fective 2017-Present) Name:Herb TavaresTim Relation to Subscriber:Self Name:Aparna Alemanrge Luis Payer ID:Not on file Group ID:Not on file Type:Medicaid Address: [address] NET PARTIAL Member Subscriber Plan / Payer (Ef fective 2017-Present) Name:Herb Tavares Camilo Relation to Subscriber:Self Name:Tim Aleman Luis Payer ID:Not on file Group ID:Not on file Type:Medicaid Address: [address] PARTIAL Member Subscriber Plan / Payer (Ef fective 2017-Present) Name:Tim Aleman Relation to Subscriber:Self Name:Estevez ChaitanyaTim Payer ID:Not on file Group ID:Not on file Type:Medicaid Address: [address] [employer] SAF[employer] NET [employer]IAL [facility] Care Teams Media Supervisor Relationship Specialty Start Date End Date Inna Lutz MD [address] [place] [address] PCP - General Internal Medicine 11/08/21 Additional Source Comments The information contained in this document represents components of the legal health record. It is not the complete legal health record.[facility]
== END 2025-11-24 11:05 | disposition home or self-care (01) ==
LOC: HO.HOS 09:37
PROVIDERS: PCP Internal Medicine; Visit Provider Orthopaedic Surgery
DX: S60.212A Contusion of left wrist, initial encounter (principal); S60.222A Contusion of left hand, initial encounter; W54.0XXA Bitten by dog, initial encounter
CPT/HCPCS: 99203

== ENCOUNTER 2025-11-24 09:36 | Outpatient (REF) | payer BC, MEDICAID, SELFPAY ==
--- NOTE | ~2025-11-24 | XR_ITS ---
EXAMINATION: XR WRIST, LEFT CLINICAL INFORMATION: M25.532 - Pain in left wrist COMPARISON: None available. TECHNIQUE: PA, lateral, and oblique views of the left wrist. FINDINGS: No definite fracture, dislocation, or suspicious bone lesion. There is normal alignment of the carpal bones. There is mild to moderate arthritis in the STT joints with a subchondral cyst in the distal scaphoid. The first CMC joint appears grossly normal. Joint spaces otherwise preserved. There is mild negative ulnar variance. There is no abnormal lunate tilt. Soft tissues appear normal. XR/XR wrist LT min 3V IMPRESSION: 1. No acute fracture or dislocation. 2. 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 There is a subchondral cyst in the distal scaphoid. Electronically signed by: Robert Schroeder MD 11/24/2025 11:47 AM ARSLAN ELENA
--- OUTSIDE RECORDS SUMMARY | 2025-11-24 11:22 | XMS_ITS | Data Portability ---
Author Organization [place] - 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 Name Role Phone Sabra Sharma Primary Care [...] 18 025 Vandana Padgett MD Not available [facility] 08/11/2025 15:16:42 physic al therap [...] 2024 14:25: 32 025 Vandana Padgett MD [facility] [address], [place], [address], [facility] 10/26/2025 14:10:04 XR, should er, 2 or more view 2024 13:35: 40 025 Vandana Padgett MD [facility] [address], [place], [address], [facility] 08/11/2025 15:16:42 XR, should er, 2 or more view 2024 09:32: 51 025 Vandana Padgett MD [facility] [address], [place], [address], [facility] 03/18/2025 08:55:43 MedicationOrders None [...] 03/05/2025 shoulder 4 view [email or web address] ncrypted=shAa MhyKO6nVciWOh 6g%2BXZwaYqta q0bqfl%2Fg9IQ u6okDbcH8sAkS VpmkBd8VmHPVk VmjLDD1cQeLCb th01o0405PX9S qYnqMWaOhKiQt rMwF Not Available [facility] , [address],[facility] [address] , [place] , [address], , 03/05/2025 09:39:05 03/05/2025 03/05/2025 shoulder 4 view [email or web address] ncrypted=shAa NdrQF4mBgiQDk 6g%2BXZwaYqta q0bqfl%2Fg9IQ w3rdNunX5oYcL AsuvWg3HxRAJq QsnBNK5fIzCCi aw03h4717HT0I qYnqMWaOhKiQt rMwF Not Available [facility] , [address],[facility] [address] , [place] , [address], , 03/05/2025 09:39:06 08/06/2025 08/06/2025 shoulder 4 view [email or web address] ncrypted=shAa EvcVZ7uKyjVJa 6g%2BXZwaYqta q0bqfl%2Fg9IQ e9mnPbsV6yLrH QaofOt6QyOVIx HzsDKE8bZtTCc vp90p1288SY2W oqF8LRIVwElAo rMwF Not Available [facility] , [address] [place] [address] , [place] , [address], , 08/06/2025 13:45:22 08/06/2025 08/06/2025 shoulder 4 view [email or web address] ncrypted=shAa SsjOQ1rAnzKKp 6g%2BXZwaYqta q0bqfl%2Fg9IQ b9vkJieB2lGaM YjsmUc9WfZWBa MxmZQE7eUoBCl xd05s7847YZ2K sgV6VQQYeOyFr rMwF Not Available [facility] , [address],[facility] [address] , [place] , [address], , 08/06/2025 13:45:23 10/15/2025 10/15/2025 shoulder 4 view [email or web address] ncrypted=Casey OrellanaGgiMI2aNagXAj 6g%2BXZwaYqta q0bqfl%2Fg9IQ s2efUerY9sZiN KsltXr3FiPXHd KfbIRT4rBmECq gf96s2373KA7L cB1aEBaQuMwXf rMwF Not Available [facility] , [address],[facility] [address] , [place], [place] , [address] , 10/15/2025 14:34:16 10/15/2025 10/15/2025 shoulder 4 view [email or web address] ncrypted=Casey OrellanaWgzJF0pXyxFKh 6g%2BXZwaYqta q0bqfl%2Fg9IQ r9jpQqkL0vPfP EqfsWq0WvRMBe ZuyNIG1uBmFZt qo11x2911UF3F kJ7vKIsGhBtMk rMwF Not Available [facility] , [address],[facility] [address] , [place] , [address], , 10/15/2025 14:34:18 Result Notes Documentation Provider Name and Address Organization Details Recorded Time Xr, Shoulder, 2 Or More View : [email or web address] Encrypted=hfNsXveTR2nUklL Uv6g%8VAEapSmwcw0zmas%2Fg 7AXg8pzRlvV3mGeOUlspHs0Go SEKdCouVGT9lAyNGltm81v833 3UD5FsMarLOpArLySdhFwS Not Available [facility] 03/05/2025 09:39: 05 Xr, Shoulder, 2 Or More View : [email or web address]? Encrypted=muQjZvkGT5aVkzB Uv6g%7UWAnpQhugu2ewgc%2Fg 9SIg2xrXkqD9jDcOUytzLc9Od CXHzGrxEUN1pHuWAfxj15a181 0WY5YlFtxBHmBfRtXwrMvJ Not Available [facility] 03/05/2025 09:39: 06 Xr, Shoulder, 2 Or More View : [email or web address] Encrypted=dmRkDzcWQ0rBcmR Uv6g%8SISpiYvisn8rstv%2Fg 1CGr7vwCvhL9uJdZSihpVc7Ts TWMxFbeNRR8yBvODgkc10m009 1US2ZhkG4YLXTjJbJpkNkL Not Available [facility] 08/06/2025 13:45: 22 Xr, Shoulder, 2 Or More View : [email or web address]? Encrypted=mzAsHcnPJ7vFjfU Uv6g%5TGBqnGgzny5fdou%2Fg 3YUr1bkDqjS2fDdKKsrnQg7Fk OBFlXalLPE4sTdFEzni08a965 4BU8LalU5VBFYjSkYkaPzF Not Available [facility] 08/06/2025 13:45: 23 Xr, Shoulder, 2 Or More View : [email or web address]? Encrypted=doEyTonHQ6cOkeE Uv6g%6JHOllMdxta5bplq%2Fg 4FNp9pwEjnZ6fDpYFeiuWj2Qd UERcHziJSE2mAiKQmgx75k561 3CM0MhQ2gCRxTkYvLzsVgQ Not Available [facility] 10/15/2025 14:34: 16 Xr, Shoulder, 2 Or More View : [email or web address]? 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 Active 2023 James Whitfield PA-C [address], [place], [address], [facility] 4 06:51:09 Pain of right shoulder joint 0043810225316 9100 Active 2023 MORRIS PIRES [facility] 4 09:54:39 Chronic pain of right upper limb 8359754128636 9108 Active 2023 James Whitfield PA-C [address], [place], [address], [facility] 4 11:12:47 Pain of left shoulder joint 8103624805043 9109 Active 2023 James Whitfield PA-C [address], [place], [address], [facility] 4 11:32:24 Pain of left shoulder region Active 2023 James Whitfield PA-C [address], [place], [address], [facility] 4 10:48:08 Neck pain 15448087 Active 2023 Mitch San MD [address], [place], [address], [facility] 5 10:59:05 Sprain of left acromioclav icular ligament 1206896110038 9103 Active 2023 James Whitfield PA-C [address], [place], [address], [facility] 4 11:19:57 Cervical spondylosis 534015075 Active 2024 Mitch San MD [address], [place], [address], [facility] 5 16:34:54 Strain of neck muscle 706195614 Active 2024 Mitch San MD [address], [place], [address], [facility] 16:34:56 Problem Notes None recorded. Procedures Surgical History Date Name Laterality Status Provider Name and Address Organization Details Recorded Time 5 89586 Therapeutic Exercise (1:1) completed Danuta Duran PTA [address], [place], [address], [facility] 01/06/2025 13:44:44 5 50041: Manual therapy completed Danuta Duran PTA [address], [place], [address], [facility] 01/06/2025 13:44:44 5 12172 Therapeutic Exercise (1:1) completed Danuta Duran PTA [address], [place], [address], [facility] 01/01/2025 07:13:25 5 75517: Manual therapy completed MARIO [address], [place], [address], [facility] 01/01/2025 07:13:25 5 81501 Therapeutic Exercise (1:1) completed Danuta Duran PTA [address], [place], [address], [facility] 12/30/2024 11:02:27 5 24573: Manual therapy completed Danuta Duran PTA [address], [place], [address], [facility] 12/30/2024 11:02:27 5 96417 Therapeutic Exercise (1:1) cancelled Danuta Duran, [employer] [address], [place], [address], [facility] 12/28/2024 06:41:48 5 62602: Manual therapy cancelled Danuta Duran, [employer] [address], [place], [address], [facility] 12/28/2024 06:41:48 5 79082 Therapeutic Exercise (1:1) cancelled Michael Karena, PT [address], [place], [address], [facility] 12/24/2024 06:51:08 5 50368: Manual therapy cancelled Michael Karena, PT [address], [place], [address], [facility] 12/24/2024 06:51:08 5 96704 Therapeutic Exercise (1:1) completed Michael Thurston, PT [address], [place], [address], [facility] 12/22/2024 12:29:47 5 38823: Manual therapy completed Michael Thurston, PT [address], [place], [address], [facility] 12/22/2024 12:29:56 5 20873 Therapeutic Exercise (1:1) cancelled Michael Thurston, PT [address], [place], [address], [facility] 12/16/2024 17:30:22 5 75428: Low complexity PT Eval cancelled Michael Thurston, PT [address], [place], [address], [facility] 12/16/2024 17:30:22 5 73257 Therapeutic Exercise (1:1) completed Michael Florek, PT [address], [place], [address], [facility] 12/02/2024 13:25:08 5 36389: Low complexity PT Eval completed Michaelmor Thurston, PT [address], [place], [address], [facility] 12/02/2024 13:25:08 5 97263 Therapeutic Exercise (1:1) cancelled Michaelmor Pikeek, PT [address], [place], [address], [facility] 12/02/2024 05:35:53 5 94971: Hot or Cold Pack cancelled Michaelmor Thurston, PT [address], [place], [address], [facility] 12/02/2024 05:35:53 5 78964: Manual therapy cancelled Michaelmor Thurston, PT [address], [place], [address], [facility] 12/02/2024 05:35:53 4 23443 Therapeutic Exercise (1:1) cancelled Michaelmor Thurston, PT [address], [place], [address], [facility] 09/22/2024 06:41:31 4 00091: Hot or Cold Pack cancelled Michaelmor Pikeek, PT [address], [place], [address], [facility] 09/22/2024 06:41:31 4 53644: Manual therapy cancelled Michaelmor Pikeek, PT [address], [place], [address], [facility] 09/22/2024 06:41:31 4 58654 Therapeutic Exercise (1:1) cancelled Michael Glendyek, PT [address], [place], [address], [facility] 09/14/2024 12:23:31 4 31218: Hot or Cold Pack cancelled Michael Karena, PT [address], [place], [address], [facility] 09/14/2024 12:23:31 4 44719: Manual therapy cancelled Michael Karena, PT [address], [place], [address], [facility] 09/14/2024 12:23:31 4 35618 Therapeutic Exercise (1:1) cancelled Danuta Duran [employer] [address], [place], [address], [facility] 09/08/2024 17:28:34 4 61260: Hot or Cold Pack cancelled Danuta Duran [employer] [address], [place], [address], [facility] 09/08/2024 17:28:34 4 18319: Manual therapy cancelled Danuta Duran [employer] [address], [place], [address], [facility] 09/08/2024 17:28:34 4 96262 Therapeutic Exercise (1:1) completed Danuta Duran [employer] [address], [place], [address], [facility] 09/01/2024 14:05:39 4 86029: Hot or Cold Pack completed Danuta Duran [employer] [address], [place], [address], [facility] 09/01/2024 14:05:39 4 46197: Manual therapy completed Danuta Duran [employer]TE[employer] [address], [place], [address], [facility] 09/01/2024 14:05:39 4 23692 Therapeutic Exercise (1:1) completed Danuta Duran, [employer] [address], [place], [address], [facility] 08/31/2024 08:08:26 4 20284: Hot or Cold Pack completed Danuta Duran, [employer] [address], [place], [address], [facility] 08/31/2024 08:08:26 4 45299: Manual therapy completed Danuta Duran [employer] [address], [place], [address], [facility] 08/31/2024 08:08:26 4 97720 Therapeutic Exercise (1:1) completed Danuta Duran [employer] [address], [place], [address], [facility] 08/28/2024 07:12:27 4 70746: Hot or Cold Pack completed Danuta Duran [employer] [address], [place], [address], [facility] 08/28/2024 07:12:27 4 15551: Manual therapy completed Danuta Duran [employer]TE[employer] [address], [place], [address], [facility] 08/28/2024 07:12:27 4 13574 Therapeutic Exercise (1:1) completed Danuta Duran, [employer] [address], [place], [address], [facility] 08/24/2024 15:15:24 4 43765: Hot or Cold Pack completed Danuta Duran, [employer]TE[employer] [address], [place], [address], [facility] 08/24/2024 15:15:24 4 59400: Manual therapy completed Danuta Duran, [employer]TE[employer] [address], [place], [address], [facility] 08/24/2024 15:15:24 4 45840 Therapeutic Exercise (1:1) completed Danuta Duran [employer] [address], [place], [address], [facility] 08/17/2024 06:50:55 4 71234: Hot or Cold Pack completed Danuta Duran [employer] [address], [place], [address], [facility] 08/17/2024 06:50:55 4 21320: Manual therapy completed Danuta Duran [employer] [address], [place], [address], [facility] 08/17/2024 06:50:55 4 76671 Therapeutic Exercise (1:1) cancelled Danuta Duran PTA [address], [place], [address], [facility] 08/11/2024 15:24:58 4 12264: Hot or Cold Pack cancelled Danuta Duran PTA [address], [place], [address], [facility] 08/11/2024 15:24:58 4 98822: Manual therapy cancelled Danuta Duran PTA [address], [place], [address], [facility] 08/11/2024 15:24:58 4 84968 Therapeutic Exercise (1:1) cancelled Danuta Duran [employer] [address], [place], [address], [facility] 08/09/2024 10:41:48 4 98240: Hot or Cold Pack cancelled Danuta Duran [employer] [address], [place], [address], [facility] 08/09/2024 10:41:48 4 11263: Manual therapy cancelled Danuta Duran PTA [address], [place], [address], [facility] 08/09/2024 10:41:48 4 19363 Therapeutic Exercise (1:1) completed Danuta Duran PTA [address], [place], [address], [facility] 08/06/2024 16:26:53 4 53698: Hot or Cold Pack completed Danuta Duran PTA [address], [place], [address], [facility] 08/06/2024 16:26:53 4 84114: Manual therapy completed Danuta Duran PTA [address], [place], [address], [facility] 08/06/2024 16:26:53 4 18732 Therapeutic Exercise (1:1) completed Danuta Duran PTA [address], [place], [address], [facility] 08/04/2024 14:07:25 4 74003: Hot or Cold Pack completed Danuta Duran PTA [address], [place], [address], [facility] 08/04/2024 14:07:25 4 65101: Manual therapy completed Danuta Duran PTA [address], [place], [address], [facility] 08/04/2024 14:07:25 4 55078 Therapeutic Exercise (1:1) cancelled Danuta Duran [employer] [address], [place], [address], [facility] 07/31/2024 16:29:11 4 33516: Hot or Cold Pack cancelled Danuta Duran, [employer]TE[employer] [address], [place], [address], [facility] 07/31/2024 16:29:11 4 71250: Manual therapy cancelled Danuta Duran, [employer]TE[employer] [address], [place], [address], [facility] 07/31/2024 16:29:11 4 18882 Therapeutic Exercise (1:1) completed Danuta Duran, [employer] [address], [place], [address], [facility] 07/29/2024 12:20:26 4 40904: Hot or Cold Pack completed Danuta Duran, MA[employer]TE[employer] [address], [place], [address], [facility] 07/29/2024 12:20:26 4 41391: Manual therapy completed Danuta Duran, [employer] [address], [place], [address], [facility] 07/29/2024 12:20:26 4 06533 Therapeutic Exercise (1:1) completed Danuta Duran, [employer]TE[employer] [address], [place], [address], [facility] 07/24/2024 21:21:57 4 87174: Hot or Cold Pack completed Danuta Duran, [employer]TE[employer] [address], [place], [address], [facility] 07/24/2024 21:21:57 4 28764: Manual therapy completed Danuta Gardunoer, [employer]TE[employer] [address], [place], [address], [facility] 07/24/2024 21:21:57 4 36925 Therapeutic Exercise (1:1) completed Danuta Duran, [employer] [address], [place], [address], [facility] 07/21/2024 15:20:38 4 99516: Hot or Cold Pack completed Danuta Duran PTA [address], [place], [address], [facility] 07/21/2024 15:20:38 4 30871: Manual therapy completed Danuta Duran PTA [address], [place], [address], [facility] 07/21/2024 15:20:38 4 33229 Therapeutic Exercise (1:1) completed Danuta Duran PTA [address], [place], [address], [facility] 07/18/2024 15:45:22 4 57007: Hot or Cold Pack completed Danuta Duran PTA [address], [place], [address], [facility] 07/18/2024 15:45:22 4 48687: Manual therapy completed Danuta Duran PTA [address], [place], [address], [facility] 07/18/2024 15:45:22 4 49787 Therapeutic Exercise (1:1) completed Danuta Duran PTA [address], [place], [address], [facility] 07/13/2024 15:17:27 4 62634: Hot or Cold Pack completed Danuta Duran PTA [address], [place], [address], [facility] 07/13/2024 15:17:27 4 96734: Manual therapy completed Danuta Duran PTA [address], [place], [address], [facility] 07/13/2024 15:17:27 4 87041 Therapeutic Exercise (1:1) cancelled Michael Glendyek, PT [address], [place], [address], [facility] 07/16/2024 06:56:14 4 39496: Hot or Cold Pack cancelled Michael Florek, PT [address], [place], [address], [facility] 07/16/2024 06:56:14 4 70654: Manual therapy cancelled Michael Glendyek, PT [address], [place], [address], [facility] 07/16/2024 06:56:14 4 94764 Therapeutic Exercise (1:1) completed Danuta Duran, [employer] [address], [place], [address], [facility] 07/08/2024 12:48:52 4 03323: Hot or Cold Pack completed Danuta Duran, [employer]TE[employer] [address], [place], [address], [facility] 07/07/2024 16:05:32 4 71311: Manual therapy completed Danuta Duran, [employer] [address], [place], [address], [facility] 07/07/2024 16:05:32 4 32651 Therapeutic Exercise (1:1) completed Danuta Duran, [employer] [address], [place], [address], [facility] 07/03/2024 12:00:20 4 91567: Hot or Cold Pack completed Danuta Duran, [employer] [address], [place], [address], [facility] 07/03/2024 12:00:20 4 70334: Manual therapy completed Danuta Duran [employer] [address], [place], [address], [facility] 07/03/2024 12:00:20 4 60919 Therapeutic Exercise (1:1) completed Danuta Duran PTA [address], [place], [address], [facility] [employer] 06/30/2024 17:33:45 4 70818: Hot or Cold Pack completed Danuta Duran PTA [address], [place], [address], [facility] 06/30/2024 17:33:45 4 22614: Manual therapy completed Danuta Duran PTA [address], [place], [address], [facility] 06/30/2024 17:33:45 4 60739 Therapeutic Exercise (1:1) completed Danuta Duran PTA [address], [place], [address], [facility] 06/28/2024 18:37:48 4 02685: Hot or Cold Pack completed Danuta Duran PTA [address], [place], [address], [facility] 06/28/2024 18:37:48 4 92143: Manual therapy completed Danuta Duran PTA [address], [place], [address], [facility] 06/28/2024 18:37:48 4 16505 Therapeutic Exercise (1:1) completed Danuta Duran PTA [address], [place], [address], [facility] 06/24/2024 14:43:05 4 58178: Hot or Cold Pack completed Danuta Duran PTA [address], [place], [address], [facility] 06/24/2024 14:43:05 4 63810: Manual therapy completed Danuta Duran PTA [address], [place], [address], [facility] 06/24/2024 14:43:05 4 82041 Therapeutic Exercise (1:1) completed Michael Thurston, PT [address], [place], [address], [facility] 06/23/2024 05:24:29 4 73419: Hot or Cold Pack completed Michael Thurston, PT [address], [place], [address], [facility] 06/23/2024 05:22:26 4 00696: Manual therapy completed Michael Thurston, PT [address], [place], [address], [facility] 06/23/2024 05:24:26 4 09423 Therapeutic Exercise (1:1) completed Danuta Duran PTA [address], [place], [address], [facility] 06/17/2024 12:59:58 4 46173: Hot or Cold Pack completed Danuta Duran PTA [address], [place], [address], [facility] 06/17/2024 12:59:58 4 29795: Manual therapy completed Danuta Duran [employer] [address], [place], [address], [facility] 06/17/2024 12:59:58 4 41119 Therapeutic Exercise (1:1) completed Danuta Duran [employer] [address], [place], [address], [facility] 06/15/2024 15:18:55 4 78762: Hot or Cold Pack completed Danuta Duran, [employer] [address], [place], [address], [facility] 06/15/2024 15:18:55 4 56885: Manual therapy completed Danuta Duran, [employer] [address], [place], [address], [facility] 06/15/2024 15:18:55 4 06631 Therapeutic Exercise (1:1) completed Michael Thurston, PT [address], [place], [address], [facility] 06/11/2024 08:35:04 4 31098: Hot or Cold Pack completed Michael Thurston, PT [address], [place], [address], [facility] 06/11/2024 08:35:04 4 01827: Manual therapy completed Michael Thurston, PT [address], [place], [address], [facility] 06/11/2024 08:35:04 4 17687 Therapeutic Exercise (1:1) completed Michael Thurston, PT [address], [place], [address], [facility] 06/08/2024 06:41:08 4 13307: Hot or Cold Pack completed Michael Thurston, PT [address], [place], [address], [facility] 06/08/2024 06:41:08 4 94673: Manual therapy completed Michael Thurston, PT [address], [place], [address], [facility] 06/08/2024 06:41:08 4 36225 Therapeutic Exercise (1:1) cancelled Michael Thurston, PT [address], [place], [address], [facility] 06/03/2024 07:05:05 4 18815: Hot or Cold Pack cancelled Michaelmor Thursotn, PT [address], [place], [address], [facility] 06/03/2024 07:05:05 4 26108: Manual therapy cancelled Michael Thurston, PT [address], [place], [address], [facility] 06/03/2024 07:05:05 4 80000 Therapeutic Exercise (1:1) completed Michael Thurston, PT [address], [place], [address], [facility] 06/01/2024 08:17:00 4 77843: Hot or Cold Pack completed Michael Thurston, PT [address], [place], [address], [facility] 06/01/2024 08:17:00 4 05224: Manual therapy completed Michael Thurston, PT [address], [place], [address], [facility] 06/02/2024 06:13:36 4 77276 Therapeutic Exercise (1:1) completed Danuta Duran, [employer] [address], [place], [address], [facility] 05/26/2024 13:25:19 4 12057: Hot or Cold Pack completed Danuta Duran, [employer] [address], [place], [address], [facility] 05/26/2024 13:25:13 4 21340: Manual therapy completed Danuta Duran, [employer] [address], [place], [address], [facility] 05/26/2024 13:25:21 4 51060 Therapeutic Exercise (1:1) completed Michael Thurston, PT [address], [place], [address], [facility] 05/15/2024 14:11:41 4 70798: Low complexity PT Eval completed Michael Thurston, PT [address], [place], [address], [facility] 05/15/2024 14:11:47 4 Shoulder Surgery completed HANNAH [place] [facility] 02/18/2025 08:28:24 4 35889 Therapeutic Exercise (1:1) completed Isaias Sargent DPT [address], [place], [address], [facility] 02/11/2024 10:54:58 4 96864: Manual therapy completed Isaias Sargent DPT [address], [place], [address], [facility] 02/11/2024 10:57:19 Ankle/Foot Surgery completed ROSALIA HERR [facility] 04/17/2024 13:42:05 Other completed ROSALIA HERR [facility] 04/17/2024 13:42:05 Imaging Results Imaging Date Name Status LastModifiedBy Organiza tion Detail LastModifiedTime 02/02/2025 completed CAROLYN RENNER Not Available 02/02/2025 13:37:42 03/05/2025 shoulder 4 view completed Not Available [facility] , [address] , [place] , [address], [place] , 03/05/2025 09:39:05 03/05/2025 shoulder 4 view completed Not Available [facility] , [address] , [place] , [address], [place] , 03/05/2025 09:39:06 08/06/2025 shoulder 4 view completed Not Available [facility] , [address] , [place] , [address], [place] , 08/06/2025 13:45:22 08/06/2025 shoulder 4 view completed Not Available [facility] , [address] , [place] , [address], [place] , 08/06/2025 13:45:23 10/15/2025 shoulder 4 view completed Not Available [facility] , [address] , [place] , [address], [place] , 10/15/2025 14:34:16 10/15/2025 shoulder 4 view completed Not Available [facility] , [address] , [place] , [address], [place] , 10/15/2025 14:34:18 Procedure Notes None recorded. Medical Equipment None Reported. Allergies Allergen ID Allergen Name Allergen Category Reaction Reaction Severity Criticality Documentation Date Start Date Code Code System Note Provider Name and Address Organization Details Recorded Time 403419 methocarb martín medicatio n Not available Not available Not available 10/15/2025 6845 RxNorm Not Available adalberto - External Data Service - prod 5 04:23:24 544621 morphine medicatio n Not available Not available low 10/15/2025 7052 RxNorm Not Available adalberto - External Data Service - prod 5 04:23:24 413241 Robaxin medicatio n Not available Not available Not available 10/15/2025 48154 5 RxNorm Not Available adalberto - External Data Service - prod 5 04:24:09 645310 amoxicill in medicatio n Not available Not available Not available 10/15/20252018 723 RxNorm Dizzy , nause a, vomit Not Available adalberto - External Data Service - prod 5 04:24:10 230454 gabapenti n medicatio n Not available Not available Not available 10/15/20252017 81246 RxNorm Menta l insta bilit y Not Available adalberto - External Data Service - prod 5 04:24:10 58103 morphine sulfate medicatio n Not available Not available Not available 01/27/20242022 00537 RxNorm Not Available [facility] 4 12:33:19 Medications Name Authored On [...] availab le 0 Not Available [place]AN[place] [facility] 03/27/2024 13:50:50 Binax NOW COVID -19 Ag Self Test kit 4 15:32:45 TEST DIRE CTED TODA Y 03/27 aborted Not Available Not availab le 0 Not Available [place] [facility] 03/27/2024 13:50:55 bhargav calci ferol (tyson min D3) 25 mcg (1,00 0 unit) table t 4 15:32:45 TAKE 1 TABL ET BY TRA Fuentes EVER Y DAY IN THE MORN ING 03/27 aborted Not Available Not availab le 0 Not Available HANNAH [place] [facility] [address] 03/27/2024 13:50:59 fluti fariba e propi kaila 50 mcg/a ctuat ion nasal spray ,susp ensio n 4 15:32:45 USE 2 SPRA YS IN EACH NOST RIL KEN Y 03/27 aborted Not Available Not availab le 0 Not Available HANNAH [place] [facility] [address] 03/27/2024 13:51:05 hydro xyzin e HCl 50 mg table t 4 15:32:45 PLEA SE SEE ERMIAS CHED FOR DETA ILED DIRE CTIO NS 03/27 aborted Not Available Not availab le 0 Not Available HANNAH CARRENORO [facility] 03/27/2024 13:51:08 ibupr ofen 800 mg table t 4 15:32:45 TAKE 1 TABL ET BY MOUT H THRE E TIME S A DAY NEED ED FOR PAIN FOR 10 DAYS 03/27 aborted Not Available Not availab le 0 Not Available HANNAH BRIDGESEIRO [facility] [address] 03/27/2024 13:51:10 predn isone 10 mg table t 4 15:32:45 PLEA SE SEE ERMIAS CHED FOR DETA ILED DIRE CTIO NS 03/27 aborted Not Available Not availab le 0 Not Available HANNAH BRIDGESEIRO [facility] 03/27/2024 13:51:53 oxyco done 5 mg capsu le 4 15:32:45 TAKE 1 CAPS ULE BY MOUT H EVER Y 6 HOUR S NEED ED FOR PAIN FOR 3 DAYS 04/15 aborted Not Available Not availab le 0 Not Available ROSALIA HERR [facility] [address] 04/17/2024 13:42:09 aspir in 325 mg table t 4 13:25:47 TAKE 1 TABL ET BY MOUT H EVER Y DAY FOR 14 DAYS 07/02 aborted Not Available Not availab le 0 Not Available HANNAH BRIDGESEIRO [facility] [address] 07/02/2024 13:08:40 docus ate sodiu m 100 mg capsu le 4 13:25:47 TAKE 1 CAPS ULE BY MOUT H EVER Y DAY NEED ED 07/02 aborted Not Available Not availab le 0 Not Available HANNAH [place] [facility] [address] 07/02/2024 13:08:46 Lidoc spenser Visco us 2 % mucos al solut ion 4 14:37:56 PLEA SE SEE ERMIAS CHED FOR DETA ILED DIRE CTIO NS 07/02 aborted Not Available Not availab le 0 Not Available HANNAH CARRENORO [facility] [address] 07/02/2024 13:08:49 sucra lfate 100 mg/mL oral suspe nsion 4 14:37:56 TAKE 2.5 ML 4 TIME S PER DAY FOR 10 DAYS 07/02 aborted Not Available Not availab le 0 Not Available HANNAH CARRENORO [facility] [address] 07/02/2024 13:09:07 oxyco done 5 mg table t 4 13:33:31 TAKE 1 TABL ET BY MOUT H EVER Y DAY NEED ED FOR 7 DAYS 07/02 aborted Not Available Not availab le 0 Not Available HANNAH [place] [facility] [address] 07/02/2024 13:09:11 oflox acin 0.3 % eye drops 4 14:37:56 07/02 aborted Not Available Not availab le 0 Not Available HANNAH CARRENORO [facility] [address] 07/02/2024 13:09:15 cyclo benza eliud 5 mg table t 4 16:34:23 08/17 aborted Not Available Not availab le 0 Not Available HANNAH CARRENORO [facility] [address] 08/17/2024 09:55:51 albut paul sulfa te HFA [...] availab le 0 Not Available Not Available [facility] 12/02/2024 06:04:24 amoxi cilli n 875 mg-po tassi um clavu lanat e 125 mg table t 4 06:00:36 TAKE 1 TABL ET BY TRA CONTRERAS E A DAY FOR 5 DAYS 12/18 aborted Not Available Not availab le 0 Not Available [facility] [address] 12/18/2024 15:00:32 benzo natat e 200 mg capsu le 4 05:15:43 12/18 aborted Not Available Not availab le 0 Not Available [facility] [address] 12/18/2024 15:00:38 cyclo benza eliud 10 mg table t 4 15:35:07 12/18 aborted Not Available Not availab le 0 Not Available [facility] [address] 12/18/2024 15:00:44 ibupr ofen 600 mg table t 4 15:35:07 12/18 aborted Not Available Not availab le 0 Not Available [facility] 12/18/2024 15:00:50 melox icam 15 mg table t 4 11:52:05 12/18 aborted Not Available Not availab le 0 Not Available [facility] [address] 12/18/2024 15:00:53 omepr azole 20 mg capsu le,de layed relea se 4 07:05:43 12/18 aborted Not Available Not availab le 0 Not Available [facility] [address] 12/18/2024 15:00:57 sumat ripta n 50 mg table t 4 05:45:44 12/18 aborted Not Available Not availab le 0 Not Available [facility] 12/18/2024 15:01:00 aceta minop hen 500 mg table t 4 14:54:40 Take 2 tabl ets 3 time s a day by oral rout e. 12/18 aborted Instability of right shoulder joint Not availab le 0 Not Available Not Available [facility] 12/18/2024 15:05:21 diclo fenac 1 % topic al gel 4 16:32:17 APPL Y 2 GRAM S TO THE AFFE CTED AREA (S) BY TOPI SHARRI ROUT E 4 TIME S PER DAY for 14 days then may peralta siti on to as need ed use for pain 12/18 aborted Pain of left shoulder joint Not availab le 1 Not Available Not Available [facility] 12/18/2024 15:05:22 napro xen 500 mg table t 4 10:34:05 Take 1 tabl et twic e a day by oral rout e as need ed for 30 days . 12/18 aborted Follow-up orthopedic assessment Not availab le 1 Not Available Not Available [facility] 12/18/2024 15:05:22 trama dol 37.5 mg-ac etami nophe n 325 mg table t 5 13:13:04 1-2 TABL ETS BY TRA Fuentes EVER Y 6 HOUR S NEED ED PART IAL FILL UPON DB ENT REQU EST active Not Available Not availab le 0 Not Available Not Available [facility] 12/27/2024 13:13:04 predn isone 20 mg table t 4 05:15:43 01/22 aborted Not Available Not availab le 0 Not Available HANNAH [place] [facility] 01/22/2025 15:28:38 doxyc yclin e hycla te 100 mg table t 5 06:11:52 01/22 aborted Not Available Not availab le 0 Not Available HANNAH [place] [facility] 01/22/2025 15:28:40 propr anolo l 10 [...] 0 Not Available Feli Montana [place] - [facility] 05/31/2025 09:29:50 azith romyc in 250 mg table t 5 10:11:28 TAKE 2 TABL ETS BY MOUT H TODA Y, THEN TAKE 1 TABL ET KEN Y FOR 4 DAYS DIRE CTED 05/31 aborted Not Available Not availab le 0 Not Available Feli [place] - [facility] 05/31/2025 09:30:02 ketoc onazo [...] Updated DateTime 01/22/2025 157.48 cm 21.2 kg/m2 40689.71 g HANNAH [place] [facility] 01/22/2025 15:27:50 Date Recorded Body height Body mass index (BMI) Body weight Provider Name and Address Organization Details Last Updated DateTime 03/05/2025 157.48 cm 21.2 kg/m2 38755.71 g HANNAH MA [facility] 03/05/2025 09:32:00 Date Recorded Body height Body mass index (BMI) Body weight Provider Name and Address Organization Details Last Updated DateTime 05/31/2025 157.48 cm 22.9 kg/m2 78873.05 g Feli Montana [facility] 05/31/2025 09:29:39 Date Recorded Body height Body mass index (BMI) Body weight Provider Name and Address Organization Details Last Updated DateTime 08/06/2025 157.48 cm 22.9 kg/m2 99990.05 g Esvin Grace [facility] 08/06/2025 13:32:51 Date Recorded Body height Body mass index (BMI) Body weight Provider Name and Address Organization Details Last Updated DateTime 10/15/2025 157.48 cm 22.9 kg/m2 28728.05 g Esvin Grace [facility] 10/15/2025 14:23:47 Social History [...] Disease N Heart Trouble N Heart Attack (PR) N Gastrointestinal Disease N Cholesterol N Diabetes [...] ICD10 Code Diagnosis IMO Codes Diagnosis Note [id number] LAMINE Tobar PT [address] [place] [address] 02/10/2024 15:32:05 02/10/2024 16:24:49 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 [id number] 07507 M24.143 [id number] MD Luiz Hartley 2[address] floor [address] [place] [address] 04/06/2024 15:14:48 04/16/2024 11:23:56 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 [id number] 67770 M24.129 [id number] MD Luiz Hartley 2[address] floor [address] [place] [address] 04/17/2024 13:29:33 04/29/2024 15:42:06 Recurrent anterior dislocation of shoulder 721638649 M24.393 [id number] MD Rosibel Hartley [address] [place] [address] 05/01/2024 15:17:33 05/19/2024 15:32:05 History of operative procedure on shoulder [id number] Z98.902 [id number] Lewis Gandara PA-C [facility] [address] [place] [address] 04/25/2024 13:56:31 04/25/2024 13:58:28 [id number] Michael Karena, PT [facility] [address] [place] [address] 05/15/2024 13:03:31 05/15/2024 14:03:53 Recurrent anterior dislocation of shoulder M24.905 [id number] Danuta Roger, [employer] [facility] [address] [place] [address] 05/26/2024 12:16:20 05/26/2024 13:09:52 Recurrent anterior dislocation of shoulder M24.936 [id number] James Whitfield PA-C [facility] [address] [place] [address] 05/27/2024 10:52:41 06/15/2024 07:49:43 Instability of right shoulder joint 647393294 M25.383 [id number] Michael Thurston, PT [facility] [address] [place] [address] 06/01/2024 11:32:14 06/01/2024 12:51:37 Recurrent anterior dislocation of shoulder M24.309 [id number] Michael Thurston, PT [facility] [address] [place] [address] 06/08/2024 10:49:33 06/08/2024 11:36:03 Recurrent anterior dislocation of shoulder M24.708 [id number] Michael Thurston, PT [facility] [address] [place] [address] 06/12/2024 13:05:38 06/12/2024 14:13:40 Recurrent anterior dislocation of shoulder M24.967 [id number] James Whitfield PA-C [facility] [address] [place] [address] 06/12/2024 12:02:18 06/30/2024 09:46:22 Instability of right shoulder joint 298135047 M25.440 [id number] Danuta Duran [employer] [facility] [address] [place] [address] 06/16/2024 15:31:12 06/16/2024 16:18:39 Recurrent anterior dislocation of shoulder M24.426 [id number] Danuta Duran [employer] [facility] [address] [place] [address] 06/18/2024 17:59:47 06/18/2024 18:05:10 Recurrent anterior dislocation of shoulder M24.455 [id number] Michael Glendyheidi, PT [facility] [address] [place] [address] 06/22/2024 12:27:58 06/22/2024 13:14:08 Recurrent anterior dislocation of shoulder M24.576 [id number] Danuta Duran [employer] [facility] [address] [place] [address] 06/25/2024 11:59:31 06/25/2024 12:31:08 Recurrent anterior dislocation of shoulder 473657051 M24.160 [id number] Danuta Duran [employer] [facility] [address] [place] [address] 06/29/2024 10:58:41 06/29/2024 11:55:31 Recurrent anterior dislocation of shoulder 087110140 M24.462 [id number] Danuta Duarn, [employer] [facility] [address] [place] [address] 07/01/2024 10:57:48 07/01/2024 12:08:25 Recurrent anterior dislocation of shoulder [id number] M24.273 [id number] MD Kelly Hartleynie 2nd floor [address] [place] [address] 07/02/2024 12:57:24 07/29/2024 13:07:25 Pain of right shoulder joint 5917429265 [id number] M25.249 [id number] Danuta Duran, [employer] [facility] [address] [place] [address] 07/06/2024 10:48:38 07/06/2024 11:25:57 Recurrent anterior dislocation of shoulder M24.033 [id number] Danuta Duran [employer] [facility] [address] [place] [address] 07/08/2024 11:02:19 07/08/2024 13:02:16 Recurrent anterior dislocation of shoulder M24.004 [id number] Danuta Duran [employer] [facility] [address] [place] [address] 07/17/2024 13:34:29 07/17/2024 14:14:19 Recurrent anterior dislocation of shoulder M24.410 [id number] Danuta Duran [employer] [facility] [address] [place] [address] 07/20/2024 10:53:42 07/20/2024 11:24:56 Recurrent anterior dislocation of shoulder M24.962 [id number] Danuta Duran [employer] [facility] [address] [place] [address] 07/22/2024 10:55:17 07/22/2024 11:39:03 Recurrent anterior dislocation of shoulder M24.273 [id number] Danuta Duran [employer] [facility] [address] [place] [address] 07/28/2024 10:48:24 07/28/2024 12:24:32 Recurrent anterior dislocation of shoulder M24.620 [id number] Danuta Duran, [employer] [facility] [address] [place] [address] 07/30/2024 10:59:36 07/30/2024 11:59:38 Recurrent anterior dislocation of shoulder M24.901 [id number] Vandana Padgett MD [facility] [address] [place] [address] 10/16/2024 13:53:51 11/16/2024 09:15:25 Chronic pain of right upper limb [id number] 9502560 M25.511 G89.29 348888 Pain of le ft shoulder joint [id number] M25.512 622574 Follow-up orthopedic assessment 404528067 Z47.89 [id number] [id number] Danuta Duran, MAINTENANCE [employer] [facility] [address] [place] [address] 08/05/2024 11:01:50 08/05/2024 12:17:01 Recurrent anterior dislocation of shoulder M24.305 [id number] Danuta Duran, MAINTENANCE [employer] [facility] [address] [place] [address] 08/07/2024 12:58:13 08/07/2024 14:30:04 Recurrent anterior dislocation of shoulder M24.307 [id number] Danuta Duran MAINTENANCE [employer] [facility] [address] [place] [address] 08/19/2024 10:04:00 08/19/2024 10:48:20 Recurrent anterior dislocation of shoulder 592188671 M24.827 [id number] MD Luiz Hartley [address] [place] [address] 08/17/2024 09:48:00 09/08/2024 08:58:20 Follow-up orthopedic assessment [id number] Z47.89 [id number] Danuta Duran [employer]TENA[employer] [facility] [address] [place] [address] 08/26/2024 09:16:09 08/26/2024 10:19:39 Recurrent anterior dislocation of shoulder 295059637 M24.247 [id number] Michael Thurston, PT [facility] [address] [place] [address] 08/28/2024 13:07:43 08/28/2024 14:44:56 Recurrent anterior dislocation of shoulder 637958910 M24.690 [id number] Danuta Roger [employer]TENA[employer] [facility] [address] [place] [address] 08/31/2024 10:57:50 08/31/2024 12:12:18 Recurrent anterior dislocation of shoulder M24.443 [id number] Danuta Duran, MARIO [facility] [address] [place] [address] 09/02/2024 10:08:01 09/02/2024 10:47:57 Recurrent anterior dislocation of shoulder M24.834 [id number] James Whitfield PA-C [facility] [address] [place] [address] 10/08/2024 11:01:26 10/28/2024 07:19:07 Chronic pain of right upper limb 0199462362 8964926 M25.511 G89.29 085111 Pain of le ft shoulder joint 5407932612 1383572 M25.512 605948 [id number] James Whitfield PA-C [facility] [address] [place] [address] 11/19/2024 10:19:58 12/09/2024 13:54:18 Pain of left shoulder region 8714393697 M25.512 [id number] Neck pain 06185321 M54.2 84913 Sprain of left acromioclavicular ligament 0294312578 9693895 S43.52XD 25396266 [id number] MD MCKAY Hartley [facility] [address] [place] [address] 01/22/2025 14:43:54 02/08/2025 08:56:53 Follow-up orthopedic assessment [id number] Z47.89 4167775 [id number] Michael Thurston, THEE [facility] [address] [place] [address] 12/02/2024 13:04:27 12/02/2024 14:28:44 Recurrent anterior dislocation of shoulder M24.295 [id number] MD [facility] [address] [place] [address] 12/18/2024 14:46:11 01/04/2025 08:28:00 Strain of neck muscle 356802758 S16.1XXA 4864860 Cervical spondylosis 387 663433 M47.812 83026 [id number] Michael Thurston, PT [facility] [address] [place] [address] 12/22/2024 11:23:25 12/22/2024 12:26:35 Recurrent anterior dislocation of shoulder M24.402 [id number] MD MCKAY [facility] [address] [place] [address] 12/30/2024 09:30:34 01/19/2025 10:59:34 Strain of neck muscle 328267755 S16.1XXD 6052385 Neck pain 28587401 M54.2 00260 [id number] Danuta Duran, MAINTENANCE WORK[employer] [facility] [address] [place] [address] 12/31/2024 12:35:17 12/31/2024 13:04:59 Recurrent anterior dislocation of shoulder M24.148 [id number] Danuta Roger, MAINTENANCE WORK[employer] [facility] [address] [place] [address] 01/05/2025 10:58:10 01/05/2025 11:53:56 Recurrent anterior dislocation of shoulder M24.836 [id number] Danuta Duran, MAINTENANCE WORK[employer] [facility] [address] [place] [address] 01/11/2025 07:34:26 01/11/2025 08:25:10 Recurrent anterior dislocation of shoulder M24.780 [id number] MD MCKAY Hartley [facility] [address] [place] [address] 03/05/2025 09:21:00 03/18/2025 08:55:43 Anterior to posterior tear of superior glenoid labrum of right shoulder 7774242069 4563066 S43.431A 5370627296 [id number] MD MCKAY Hartley [address] [place] [address] 05/31/2025 09:08:25 06/08/2025 13:58:03 Follow-up orthopedic assessment 263929770 Z47.89 54767526 [id number] MD MCKAY Hartley 2nd floor [address] [place] [address] 08/06/2025 13:19:28 08/11/2025 15:16:42 Pain of right shoulder joint 1587252642 8963679 M25.511 951044 Follow-up orthopedic assessment 267395113 Z47.89 24844178 [id number] MD MCKAY [facility] [address] [place] [address] 10/15/2025 14:18:54 10/26/2025 14:10:03 Pain of right shoulder joint 7729952771 [id number] M25.511 358860 Health Concerns Section Related Observation LastModified by [...] [employer] 33A Andrew howard [id number] Andrew Tavares 12/30/2024 [employer] [id number] Andrew Tavares 12/29/2024 [employer] GARO [...] the right shoulder ordered and obtained at [facility] 07/02/2024 at the patient's request were reviewed during the visit. These demonstrate two parallel screws transfixing the coracoid graft to the anterior-inferior glenoid. Screws do sit somewhat eccentrically within the graft itself, but no obvious coracoid fracture. No changes from multiple prior xrays. Unchanged appearance of acromion or AC joint. CT of the right shoulder performed at [facility] 10/07/2024 independently reviewed by me and [employer] during the visit today. This demonstrates 2 [...] AC joints, acromion, proximal humerus. 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 [employer] speech recognition test consultant software was used to create portions of this document. An attempt at proofreading has been made to minimize errors. Please call for corrections. Vandana Padgett MD [address] [place] [address] [address], [place], [address], [facility] 01/22/2025 16:04:21 03/05/2025 text/html [...] the right shoulder ordered and obtained at [facility] today were reviewed during the visit. These [...] CT of the right shoulder performed at [facility] 10/07/2024 independently reviewed by me [...] AC joints, acromion, proximal humerus. 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 [employer] speech recognition test consultant software was used to create portions of this document. An attempt at proofreading has been made to minimize errors. Please call for corrections. Vandana Padgett MD [address] [place] [address] Suite [facility], [place], [address], [facility] 03/05/2025 10:22:22 05/31/2025 text/html [...] the right shoulder ordered and obtained at [facility] 03/05/2025 were reviewed during the visit. These [...] CT of the right shoulder performed at [facility] 10/07/2024 independently reviewed by me [...] AC joints, acromion, proximal humerus. 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 [employer] speech recognition test consultant software was used to create portions of this document. An attempt at proofreading has been made to minimize errors. Please call for corrections. Vandana Padgett MD [facility] [address], [place], [address], [facility] 05/31/2025 10:14:48 08/06/2025 text/html Surgery: Right [...] the right shoulder ordered and obtained at [facility] 03/05/2025 were reviewed during the visit. These [...] CT of the right shoulder performed at [facility] 10/07/2024 independently reviewed by me [...] AC joints, acromion, proximal humerus. 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 [facility] speech recognition test consultant software was used to create portions of this document. An attempt at proofreading has been made to minimize errors. Please call for corrections. Vandana Padgett MD [address], [place], [address], [facility] 08/06/2025 14:23:57 10/15/2025 text/html [...] the right shoulder ordered and obtained at [facility] today were reviewed during the visit. These [...] CT of the right shoulder performed at [facility] 10/07/2024 independently reviewed by me [...] AC joints, acromion, proximal humerus. 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 [facility] speech recognition test consultant software was used to create portions of this document. An attempt at proofreading has been made to minimize errors. Please call for corrections. Vandana Padgett MD [address] [place], [place] [address] [address], [place], [address], [facility] 10/15/2025 16:20:56 Care Team Name Role Member ID Specialty Address Phone SABRA SHARMA Primary Care Provider [phone] [place], [place]
--- OUTSIDE RECORDS SUMMARY | 2025-11-24 11:22 | XMS_ITS | Data Portability ---
Author Organization [place] [facility], Allergy Address [address] [address] Care Team Providers Care Anesthesiology Fellow Name Role Phone SABRA MEYER Primary Care [...] this. 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; Note: Date Diagnosed: 10/23/2021 1:50 PM (M95.0) Not Available [facility] 4 02:46:42 Migraine 65135464 Active 2020 Other migraine, not intractabl e, without status migrainosu s; Note: Date Diagnosed: 10/23/2021 1:50 PM (G43.809) Not Available [facility] 4 02:46:39 Deviated nasal septum 092778267 Active 2020 Deviated nasal septum; Note: Date Diagnosed: 10/23/2021 1:50 PM (J34.2) Not Available [facility] 4 02:46:40 Nasal obstructi on 469121943 Active 2024 CEZAR LIM MD [address] [place] [address], [place], [address] , [facility] 5 12:24:33 Hypertrop hy of nasal turbinate s 74097154 Active 2024 CEZAR LIM MD [address] [place] [address], [place], [address] , [facility] 5 12:24:53 Problem Notes None recorded. Medical Equipment None Reported. Allergies Allergen ID Allergen Name Allergen Category Reaction Reaction Severity Criticality Documentation Date Start Date Code Code System Note Provider Name and Address Organization Details Recorded Time 993107 Robaxin medicatio n other Not available Not available 04/07/2024 5 RxNorm React ion: Unkno wn; Not Available [facility] 4 01:20:02 Medications Name Sig Start Date [...] Updated DateTime 12/30/2024 157.48 cm 22.9 kg/m2 36071.05 g Qian Montes [place] [facility] 12/30/2024 13:52:43 Date Recorded Body height Body mass index (BMI) Body weight Provider Name and Address Organization Details Last Updated DateTime 02/02/2025 157.48 cm 22.9 kg/m2 63672.05 g RONNIE CRONIN [place] [facility] 02/02/2025 09:46:30 Social History None recorded. Functional Status None recorded. Mental Status None recorded. Family History Nothing Reported. Medical History No medical history recorded. Past Encounters Encounter ID Performer Location Encounter Start Date Encounter Closed Date Diagnosis/Indication Diagnosis SNOMED-CT Code Diagnosis ICD10 Code Diagnosis IMO Codes Diagnosis Note [id number] OSMAN IBRAHIM PA-C [facility] [address] [address] 12/30/2024 13:46:16 12/30/2024 14:09:56 Deviated nasal septum 377847097 J34.2 Acquired d eformity of nose 73946359 M95.0 [id number] CEZAR LIM MD [facility] [address] [place] [address] 02/02/2025 09:37:59 02/02/2025 11:58:42 Nasal obstruction 265897915 J34.89 Deviated nasal septum 12 2815886 J34.2 Hypertroph y of nasal turbinates 88155889 J34.3 Health Concerns Section Related Observation LastModified by Organization Detai ls LastModified Time None Recorded Concern Status LastModified by Organization Details LastModified Time None Recorded Advance Directives Directive None Recorded Payers Insurance Date Sequence Insurance Name Policy Number Policy Robles Covered Member ID Robles Member ID Guarantor Name 03/12/2025 1 [employer] - FEP 33A Tim mckeon [id number] Tim Tavares 03/18/2025 1 [place] [employer] [id number] Tim mckeon [id number] Tim Tavares Notes Date Note Type Note [...] moe [place] [facility] 12/30/2024 14:22:45 02/02/2025 text/html ROS as [...] marijuana use Post office CEZAR LIM MD [address] [place] [address], [address], [facility] 02/02/2025 12:29:20
--- OUTSIDE RECORDS SUMMARY | 2025-11-24 11:22 | XMS_ITS | Continuity of Care Document ---
Author Organization [facility] [address] [place] [address] Care Team Providers Care Audiology Director Name Role Phone Sabra Sharma Primary Care [...] 2024 14:25: 32 025 Vandana Padgett MD [facility] Office [address] [facility] [address], [place], [address], [facility] 10/26/2025 14:10:04 MedicationOrders None record ed. VaccineOrders None record ed. Patient TargetsNo targets recorded. Patient Instructions Encounter Date Encounter Id Patient Instructions Last Modified By Organization Details Last Modified Time 10/15/2025 [id number] Will have Andrew continue with work conditioning, [...] Detail LastModifiedTime 10/15/2025 10/15/2025 shoulder 4 view [email or web address] Not Available [facility] , [address],[facility] [address] [place] , [address], , 10/15/2025 14:34:16 10/15/2025 10/15/2025 shoulder 4 view [email or web address]=[email or web address] [id number] Not Available [facility] , [address],[facility] [address] , [place] , [address], , 10/15/2025 14:34:18 Result Notes Documentation Provider Name and Address Organization Details Recorded Time Xr, Shoulder, 2 Or More View : [email or web address] Encrypted=[email or web address] Uv6g%4DIXulDzbjb7iwgj%2Fg 4IGz1ffZssI0dHgPKnmcQr0Qu [id number] 0HQ6UmD6tQPjXuCbAflFjI Not Available [facility] 10/15/2025 14:34: 16 Xr, Shoulder, 2 Or More View : [email or web address] 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 Active 2023 James Whitfield PA-C [address], [place], [address], [facility] 4 06:51:09 Pain of right shoulder joint 4461062008669 9100 Active 20[facility] 4 09:54:39 Chronic pain of right upper limb 2247541250479 9108 Active 2023 James Whitfield PA-C [address], [place], [address], [facility] 4 11:12:47 Pain of left shoulder joint 3348509692740 9109 Active 2023 James Whitfield PA-C [address], [place], [address], [facility] 4 11:32:24 Pain of left shoulder region Active 2023 James Whitfield PA-C [address], [place], [address], [facility] 4 10:48:08 Neck pain 69383398 Active 2023 Mitch San MD [address], [place], [address], [facility] 5 10:59:05 Sprain of left acromioclav icular ligament 6301132972653 9103 Active 2023 James Whitfield PA-C [address], [place], [address], [facility] 4 11:19:57 Cervical spondylosis 254551586 Active 2024 Mitch San MD [address], [place], [address], [facility] 5 16:34:54 Strain of neck muscle 012863775 Active 2024 Mitch San MD [address], [place], [address], [facility] 5 16:34:56 Problem Notes None recorded. Procedures Surgical History Date Name Laterality Status Provider Name and Address Organization Details Recorded Time 5 77098 Therapeutic Exercise (1:1) completed Danuta Duran PTA [address], [place], [address], [facility] 01/06/2025 13:44:44 5 15250: Manual therapy completed MARIO [address], [place], [address], [facility] 01/06/2025 13:44:44 5 62294 Therapeutic Exercise (1:1) completed Danuta Duran PTA [address], [place], [address], [facility] 01/01/2025 07:13:25 5 30038: Manual therapy completed Danuta Duran, COLLECTIONS MANAGER [address], [place], [address], [facility] 01/01/2025 07:13:25 5 02887 Therapeutic Exercise (1:1) completed Danuta Duran, COLLECTIONS MANAGER [address], [place], [address], [facility] 12/30/2024 11:02:27 5 52821: Manual therapy completed Danuta Duran COLLECTIONS MANAGER [address], [place], [address], [facility] 12/30/2024 11:02:27 5 51624 Therapeutic Exercise (1:1) cancelled Danuta Duran COLLECTIONS MANAGER [address], [place], [address], [facility] 12/28/2024 06:41:48 5 00200: Manual therapy cancelled Danuta Duran PTA [address], [place], [address], [facility] 12/28/2024 06:41:48 5 93527 Therapeutic Exercise (1:1) cancelled Michael Thurston, PT [address], [place], [address], [facility] 12/24/2024 06:51:08 5 51515: Manual therapy cancelled Michael Thurston, PT [address], [place], [address], [facility] 12/24/2024 06:51:08 5 69939 Therapeutic Exercise (1:1) completed Michael Thurston, PT [address], [place], [address], [facility] 12/22/2024 12:29:47 5 96392: Manual therapy completed Michael Glendyek, PT [address], [place], [address], [facility] 12/22/2024 12:29:56 5 13594 Therapeutic Exercise (1:1) cancelled Michael Glendyek, PT [address], [place], [address], [facility] 12/16/2024 17:30:22 5 11959: Low complexity PT Eval cancelled Michael Florek, PT [address], [place], [address], [facility] 12/16/2024 17:30:22 5 82252 Therapeutic Exercise (1:1) completed Michaelmor Pikeek, PT [address], [place], [address], [facility] 12/02/2024 13:25:08 5 47553: Low complexity PT Eval completed Michael Glendyek, PT [address], [place], [address], [facility] [place] [facility] 12/02/2024 13:25:08 5 46837 Therapeutic Exercise (1:1) cancelled Michaelmor Pikeek, PT [address], [place], [address], [facility] 12/02/2024 05:35:53 5 42930: Hot or Cold Pack cancelled Michael Florek, PT [address], [place], [address], [facility] 12/02/2024 05:35:53 5 43571: Manual therapy cancelled Michael Florek, PT [address], [place], [address], [facility] 12/02/2024 05:35:53 4 92463 Therapeutic Exercise (1:1) cancelled Michael Florek, PT [address], [place], [address], [facility] 09/22/2024 06:41:31 4 02236: Hot or Cold Pack cancelled Michaelmor Thurston, PT [address], [place], [address], [facility] 09/22/2024 06:41:31 4 66370: Manual therapy cancelled Michael Thurston, PT [address], [place], [address], [facility] 09/22/2024 06:41:31 4 05172 Therapeutic Exercise (1:1) cancelled Michael Thurston, PT [address], [place], [address], [facility] 09/14/2024 12:23:31 4 23176: Hot or Cold Pack cancelled Michael Thurston, PT [address], [place], [address], [facility] 09/14/2024 12:23:31 4 61583: Manual therapy cancelled Michael Thurston, PT [address], [place], [address], [facility] 09/14/2024 12:23:31 4 06436 Therapeutic Exercise (1:1) cancelled Danuta Duran, COLLECTIONS MANAGER [address], [place], [address], [facility] 09/08/2024 17:28:34 4 58216: Hot or Cold Pack cancelled Danuta Duran, COLLECTIONS MANAGER [address], [place], [address], [facility] 09/08/2024 17:28:34 4 33909: Manual therapy cancelled Danuta Duran, COLLECTIONS MANAGER [address], [place], [address], [facility] 09/08/2024 17:28:34 4 85522 Therapeutic Exercise (1:1) completed Danuta Duran COLLECTIONS MANAGER [address], [place], [address], [facility] 09/01/2024 14:05:39 4 49372: Hot or Cold Pack completed Danuta Duran COLLECTIONS MANAGER [address], [place], [address], [facility] 09/01/2024 14:05:39 4 26290: Manual therapy completed Danuta Duran COLLECTIONS MANAGER [address], [place], [address], [facility] 09/01/2024 14:05:39 82978 Therapeutic Exercise (1:1) completed Danuta Duran COLLECTIONS MANAGER [address], [place], [address], [facility] 08/31/2024 08:08:26 4 38269: Hot or Cold Pack completed Danuta Duran COLLECTIONS MANAGER [address], [place], [address], [facility] 08/31/2024 08:08:26 4 29446: Manual therapy completed Danuta Duran COLLECTIONS MANAGER [address], [place], [address], [facility] 08/31/2024 08:08:26 4 29127 Therapeutic Exercise (1:1) completed Danuta Duran, COLLECTIONS MANAGER [address], [place], [address], [facility] 08/28/2024 07:12:27 4 95129: Hot or Cold Pack completed Danuta Duran, COLLECTIONS MANAGER [address], [place], [address], [facility] 08/28/2024 07:12:27 4 14324: Manual therapy completed Danuta Duran PTA [address], [place], [address], [facility] 08/28/2024 07:12:27 4 28707 Therapeutic Exercise (1:1) completed Danuta Duran PTA [address], [place], [address], [facility] 08/24/2024 15:15:24 4 57462: Hot or Cold Pack completed Danuta Duran PTA [address], [place], [address], [facility] 08/24/2024 15:15:24 4 50071: Manual therapy completed Danuta Duran PTA [address], [place], [address], [facility] 08/24/2024 15:15:24 4 93080 Therapeutic Exercise (1:1) completed Danuta Duran PTA [address], [place], [address], [facility] 08/17/2024 06:50:55 4 23691: Hot or Cold Pack completed Danuta Duran PTA [address], [place], [address], [facility] 08/17/2024 06:50:55 4 66193: Manual therapy completed Danuta Duran PTA [address], [place], [address], [facility] 08/17/2024 06:50:55 07964 Therapeutic Exercise (1:1) cancelled Danuta Gardunoer COLLECTIONS MANAGER [address], [place], [address], [facility] 08/11/2024 15:24:58 43998: Hot or Cold Pack cancelled Danuta Duran COLLECTIONS MANAGER [address], [place], [address], [facility] 08/11/2024 15:24:58 4 60834: Manual therapy cancelled Danuta Duran PTA [address], [place], [address], [facility] 08/11/2024 15:24:58 4 36632 Therapeutic Exercise (1:1) cancelled Danuta Duran PTA [address], [place], [address], [facility] 08/09/2024 10:41:48 4 71163: Hot or Cold Pack cancelled Danuta Duran COLLECTIONS MANAGER [address], [place], [address], [facility] 08/09/2024 10:41:48 4 23928: Manual therapy cancelled Danuta Duran PTA [address], [place], [address], [facility] 08/09/2024 10:41:48 4 68503 Therapeutic Exercise (1:1) completed Danuta Duran PTA [address], [place], [address], [facility] 08/06/2024 16:26:53 4 50848: Hot or Cold Pack completed Danuta DuranMARIO [address], [place], [address], [facility] 08/06/2024 16:26:53 4 73871: Manual therapy completed Danuta Gardunoricha COLLECTIONS MANAGER [address], [place], [address], [facility] 08/06/2024 16:26:53 4 93231 Therapeutic Exercise (1:1) completed Danuta Duran COLLECTIONS MANAGER [address], [place], [address], [facility] 08/04/2024 14:07:25 4 94993: Hot or Cold Pack completed Danuta Duran, COLLECTIONS MANAGER [address], [place], [address], [facility] 08/04/2024 14:07:25 4 94241: Manual therapy completed Danuta Duran, COLLECTIONS MANAGER [address], [place], [address], [facility] 08/04/2024 14:07:25 4 41412 Therapeutic Exercise (1:1) cancelled Danuta Duran, COLLECTIONS MANAGER [address], [place], [address], [facility] 07/31/2024 16:29:11 4 94220: Hot or Cold Pack cancelled Danuta Duran, COLLECTIONS MANAGER [address], [place], [address], [facility] 07/31/2024 16:29:11 4 96027: Manual therapy cancelled Danuta Duran, COLLECTIONS MANAGER [address], [place], [address], [facility] 07/31/2024 16:29:11 4 62229 Therapeutic Exercise (1:1) completed Danuta Duran, COLLECTIONS MANAGER [address], [place], [address], [facility] 07/29/2024 12:20:26 4 32760: Hot or Cold Pack completed Danuta Duran, COLLECTIONS MANAGER [address], [place], [address], [facility] 07/29/2024 12:20:26 4 67356: Manual therapy completed Danuta Duran, COLLECTIONS MANAGER [address], [place], [address], [facility] 07/29/2024 12:20:26 4 07663 Therapeutic Exercise (1:1) completed Danuta Duran, COLLECTIONS MANAGER [address], [place], [address], [facility] 07/24/2024 21:21:57 4 71494: Hot or Cold Pack completed Danuta Duran COLLECTIONS MANAGER [address], [place], [address], [facility] 07/24/2024 21:21:57 4 93520: Manual therapy completed Danuta Duran PTA [address], [place], [address], [facility] 07/24/2024 21:21:57 4 59741 Therapeutic Exercise (1:1) completed Danuta Duran PTA [address], [place], [address], [facility] 07/21/2024 15:20:38 4 96272: Hot or Cold Pack completed Danuta Duran PTA [address], [place], [address], [facility] 07/21/2024 15:20:38 4 06705: Manual therapy completed Danuta Duran PTA [address], [place], [address], [facility] 07/21/2024 15:20:38 4 63862 Therapeutic Exercise (1:1) completed Danuta Duran PTA [address], [place], [address], [facility] 07/18/2024 15:45:22 4 06725: Hot or Cold Pack completed Danuta Duran PTA [address], [place], [address], [facility] 07/18/2024 15:45:22 4 32099: Manual therapy completed Danuta Duran PTA [address], [place], [address], [facility] 07/18/2024 15:45:22 4 16528 Therapeutic Exercise (1:1) completed Danuta Duran COLLECTIONS MANAGER [address], [place], [address], [facility] 07/13/2024 15:17:27 4 26022: Hot or Cold Pack completed Danuta Duran COLLECTIONS MANAGER [address], [place], [address], [facility] 07/13/2024 15:17:27 4 93803: Manual therapy completed Danuta Duran COLLECTIONS MANAGER [address], [place], [address], [facility] 07/13/2024 15:17:27 4 63180 Therapeutic Exercise (1:1) cancelled Michael Thurston, PT [address], [place], [address], [facility] 07/16/2024 06:56:14 4 63563: Hot or Cold Pack cancelled Michael Thurston, PT [address], [place], [address], [facility] 07/16/2024 06:56:14 4 13452: Manual therapy cancelled Michael Thurston, PT [address], [place], [address], [facility] 07/16/2024 06:56:14 4 75429 Therapeutic Exercise (1:1) completed Danuta Duran, COLLECTIONS MANAGER [address], [place], [address], [facility] 07/08/2024 12:48:52 4 28214: Hot or Cold Pack completed Danuta Duran, COLLECTIONS MANAGER [address], [place], [address], [facility] 07/07/2024 16:05:32 4 21827: Manual therapy completed Danuta Duran COLLECTIONS MANAGER [address], [place], [address], [facility] 07/07/2024 16:05:32 4 74231 Therapeutic Exercise (1:1) completed Danuta Duran PTA [address], [place], [address], [facility] 07/03/2024 12:00:20 4 37906: Hot or Cold Pack completed Danuta Duran COLLECTIONS MANAGER [address], [place], [address], [facility] 07/03/2024 12:00:20 4 25042: Manual therapy completed Danuta Duran PTA [address], [place], [address], [facility] 07/03/2024 12:00:20 4 84578 Therapeutic Exercise (1:1) completed Danuta Duran PTA [address], [place], [address], [facility] 06/30/2024 17:33:45 4 73949: Hot or Cold Pack completed Danuta Duran PTA [address], [place], [address], [facility] 06/30/2024 17:33:45 4 02469: Manual therapy completed Danuta Duran PTA [address], [place], [address], [facility] 06/30/2024 17:33:45 4 70903 Therapeutic Exercise (1:1) completed Danuta Duran COLLECTIONS MANAGER [address], [place], [address], [facility] 06/28/2024 18:37:48 4 93639: Hot or Cold Pack completed Danuta Duran COLLECTIONS MANAGER [address], [place], [address], [facility] 06/28/2024 18:37:48 4 92891: Manual therapy completed Danuta Duran PTA [address], [place], [address], [facility] 06/28/2024 18:37:48 4 88509 Therapeutic Exercise (1:1) completed Danuta Duran PTA [address], [place], [address], [facility] 06/24/2024 14:43:05 4 23681: Hot or Cold Pack completed Danuta Duran PTA [address], [place], [address], [facility] 06/24/2024 14:43:05 4 31274: Manual therapy completed Danuta Duran PTA [address], [place], [address], [facility] 06/24/2024 14:43:05 4 37383 Therapeutic Exercise (1:1) completed Michael Thurston PT [address], [place], [address], [facility] 06/23/2024 05:24:29 4 05029: Hot or Cold Pack completed Michael Thurston PT [address], [place], [address], [facility] 06/23/2024 05:22:26 4 48785: Manual therapy completed Michael Thurston PT [address], [place], [address], [facility] 06/23/2024 05:24:26 4 97068 Therapeutic Exercise (1:1) completed Danuta Duran PTA [address], [place], [address], [facility] 06/17/2024 12:59:58 4 46551: Hot or Cold Pack completed Danuta Duran, COLLECTIONS MANAGER [address], [place], [address], [facility] 06/17/2024 12:59:58 4 60217: Manual therapy completed Danuta Duran, COLLECTIONS MANAGER [address], [place], [address], [facility] 06/17/2024 12:59:58 4 87585 Therapeutic Exercise (1:1) completed Danuta Duran, COLLECTIONS MANAGER [address], [place], [address], [facility] 06/15/2024 15:18:55 4 80899: Hot or Cold Pack completed Danuta Duran, COLLECTIONS MANAGER [address], [place], [address], [facility] 06/15/2024 15:18:55 4 62366: Manual therapy completed Danuta Duran, COLLECTIONS MANAGER [address], [place], [address], [facility] 06/15/2024 15:18:55 4 76078 Therapeutic Exercise (1:1) completed Michael Thurston, PT [address], [place], [address], [facility] 06/11/2024 08:35:04 4 74990: Hot or Cold Pack completed Michael Thurston, PT [address], [place], [address], [facility] 06/11/2024 08:35:04 4 91762: Manual therapy completed Michael Thurston, PT [address], [place], [place], [address], [facility] 06/11/2024 08:35:04 4 [id number] Therapeutic Exercise (1:1) completed Michael Thurston, PT [address], [place], [address], [facility] 06/08/2024 06:41:08 4 97503: Hot or Cold Pack completed Michael Glendyek, PT [address], [place], [address], [facility] 06/08/2024 06:41:08 4 30637: Manual therapy completed Michaelmor Pikeek, PT [address], [place], [address], [facility] 06/08/2024 06:41:08 4 83123 Therapeutic Exercise (1:1) cancelled Michael Karena, PT [address], [place], [address], [facility] 06/03/2024 07:05:05 4 79637: Hot or Cold Pack cancelled Michael Glendyek, PT [address], [place], [address], [facility] 06/03/2024 07:05:05 4 63693: Manual therapy cancelled Michaelmor Thurston, PT [address], [place], [address], [facility] 06/03/2024 07:05:05 4 66656 Therapeutic Exercise (1:1) completed Michaelmor Thurston, PT [address], [place], [address], [facility] 06/01/2024 08:17:00 4 96753: Hot or Cold Pack completed Michael Karena, PT [address], [place], [address], [facility] 06/01/2024 08:17:00 4 44759: Manual therapy completed Michaelmor Thurston, PT [address], [place], [address], [facility] 06/02/2024 06:13:36 4 33994 Therapeutic Exercise (1:1) completed Danuta Duran COLLECTIONS MANAGER [address] [facility], [place], [address], [facility] 05/26/2024 13:25:19 4 33177: Hot or Cold Pack completed Danuta Duran COLLECTIONS MANAGER [address], [place], [address], [facility] 05/26/2024 13:25:13 4 09537: Manual therapy completed Danuta Duran COLLECTIONS MANAGER [address], [place], [address], [facility] 05/26/2024 13:25:21 4 50282 Therapeutic Exercise (1:1) completed Michael Thurston, PT [address], [place], [address], [facility] 05/15/2024 14:11:41 4 06954: Low complexity PT Eval completed Michael Thurston, PT [address], [place], [address], [facility] 05/15/2024 14:11:47 4 Shoulder Surgery completed HANNAH MA [facility] 02/18/2025 08:28:24 4 74857 Therapeutic Exercise (1:1) completed LILIANA TobarT [address], [place], [address], [facility] 02/11/2024 10:54:58 4 76222: Manual therapy completed LILIANA TobarT [address], [place], [address], [facility] 02/11/2024 10:57:19 Ankle/Foot Surgery completed ROSALIA HERR [facility] 04/17/2024 13:42:05 Other completed ROSALIA HERR [facility] 04/17/2024 13:42:05 Imaging Results Imaging Date Name Status LastModifiedBy Organiza tion Detail LastModifiedTime 10/15/2025 shoulder 4 view completed Not Available [facility] , [address] , [place] , [address], , 10/15/2025 14:34:16 10/15/2025 shoulder 4 view completed Not Available [facility] , [address] , [place] , [address], [place] , 10/15/2025 14:34:18 Procedure Notes None recorded. Medical Equipment None Reported. Allergies Allergen ID Allergen Name Allergen Category Reaction Reaction Severity Criticality Documentation Date Start Date Code Code System Note Provider Name and Address Organization Details Recorded Time 525154 methocarb martín medicatio n Not available Not available Not available 10/15/2025 6845 RxNorm Not Available adalberto [employer] - prod 5 04:23:24 894659 morphine medicatio n Not available Not available low 10/15/2025 7052 RxNorm Not Available adalberto - External [employer] - prod 5 04:23:24 181876 Robaxin medicatio n Not available Not available Not available 10/15/2025 07760 5 RxNorm Not Available adalberto - [employer] - prod 5 04:24:09 329340 amoxicill in medicatio n Not available Not available Not available 10/15/20252018 723 RxNorm Dizzy , nause a, vomit Not Available adalberto - External [employer] - prod 5 04:24:10 324003 gabapenti n medicatio n Not available Not available Not available 10/15/20252017 19402 RxNorm Menta l insta bilit y Not Available [employer] - prod 5 04:24:10 31474 morphine sulfate medicatio n Not available Not available Not available 01/27/20242022 50359 RxNorm Not Available [facility] 4 12:33:19 Medications Name Authored On [...] 0 Not Available Not Available [facility] 01/27/2024 17:35:06 pseud nohmey lovell in ER 80-70 0 mg table t,ext ended relea se 4 17:35:06 Perc ocet 5-32 5MG Tabl et four time s a day 06/27 aborted Statu s: 'Disc ontin ued'; Not Available Not availab le 0 Not Available Not Available [facility] 01/27/2024 17:35:06 baclo fen 5 mg table t 4 15:32:45 TAKE 1 TABL ET BY TRA MCINTOSH E TIME S A DAY NEED ED FOR MODE RATE PAIN FOR 14 DAYS 03/27 aborted Not Available Not availab le 0 Not Available HANNAH MA [facility] 03/27/2024 13:50:50 Binax NOW COVID -19 Ag Self Test kit 4 15:32:45 TEST DIRE CTED TODA Y 03/27 aborted Not Available Not availab le 0 Not Available HANNAH MA [facility] 03/27/2024 13:50:55 bhargav calci ferol (tyson min D3) 25 mcg (1,00 0 unit) table t 4 15:32:45 TAKE 1 TABL ET BY TRA Fuentes EVER Y DAY IN THE MORN ING 03/27 aborted Not Available Not availab le 0 Not Available HANNAH MA [facility] 03/27/2024 13:50:59 fluti fariba e propi kaila 50 mcg/a ctuat ion nasal spray ,susp ensio n 4 15:32:45 USE 2 SPRA YS IN EACH NOST RIL KEN Y 03/27 aborted Not Available Not availab le 0 Not Available HANNAH FRANCESCA [facility] 03/27/2024 13:51:05 hydro xyzin e HCl 50 mg table t 4 15:32:45 PLEA SE SEE ERMIAS CHED FOR DETA ILED DIRE CTIO NS 03/27 aborted Not Available Not availab le 0 Not Available HANNAH MA [facility] 03/27/2024 13:51:08 ibupr ofen 800 mg table t 4 15:32:45 TAKE 1 TABL ET BY MOUT H THRE E TIME S A DAY NEED ED FOR PAIN FOR 10 DAYS 03/27 aborted Not Available Not availab le 0 Not Available HANNAH MA [facility] 03/27/2024 13:51:10 predn isone 10 mg table t 4 15:32:45 PLEA SE SEE ERMIAS CHED FOR DETA ILED DIRE CTIO NS 03/27 aborted Not Available Not availab le 0 Not Available HANNAH MA [facility] 03/27/2024 13:51:53 oxyco done 5 mg capsu le 4 15:32:45 TAKE 1 CAPS ULE BY MOUT H EVER Y 6 HOUR S NEED ED FOR PAIN FOR 3 DAYS 04/15 aborted Not Available Not availab le 0 Not Available ROSALIA HERR [facility] 04/17/2024 13:42:09 aspir in 325 mg table t 4 13:25:47 TAKE 1 TABL ET BY MOUT H EVER Y DAY FOR 14 DAYS 07/02 aborted Not Available Not availab le 0 Not Available HANNAH MA [facility] 07/02/2024 13:08:40 docus ate sodiu m 100 mg capsu le 4 13:25:47 TAKE 1 CAPS ULE BY MOUT H EVER Y DAY NEED ED 07/02 aborted Not Available Not availab le 0 Not Available HANNAH MA [facility] 07/02/2024 13:08:46 Lidoc spenser Visco us 2 % mucos al solut ion 4 14:37:56 PLEA SE SEE ERMIAS CHED FOR DETA ILED DIRE CTIO NS 07/02 aborted Not Available Not availab le 0 Not Available HANNAH MA [facility] 07/02/2024 13:08:49 sucra lfate 100 mg/mL oral suspe nsion 4 14:37:56 TAKE 2.5 ML 4 TIME S PER DAY FOR 10 DAYS 07/02 aborted Not Available Not availab le 0 Not Available HANNAH MA [facility] 07/02/2024 13:09:07 oxyco done 5 mg table t 4 13:33:31 TAKE 1 TABL ET BY TRA Fuentes EVER Y DAY NEED ED FOR 7 DAYS 07/02 aborted Not Available Not availab le 0 Not Available HANNAH MA [facility] 07/02/2024 13:09:11 oflox acin 0.3 % eye drops 4 14:37:56 07/02 aborted Not Available Not availab le 0 Not Available HANNAH MA [facility] 07/02/2024 13:09:15 cyclo benza eliud 5 mg table t 4 16:34:23 08/17 aborted Not Available Not availab le 0 Not Available HANNAH MA [facility] 08/17/2024 09:55:51 albut paul sulfa te HFA 90 mcg/a ctuat ion aeros ol inhal er 4 05:15:43 active Not Available Not availab le 0 Not Available Not Available [facility] 11/19/2024 05:15:43 tizan idine 4 mg table t 5 06:04:24 TAKE 1 TABL ET BY TRA WEBSTER TLY NEED ED FOR ERIN RE MUSC LE SPAS MS active Not Available Not availab le 0 Not Available Not Available [facility] 12/02/2024 06:04:24 amoxi cilli n 875 mg-po tassi um clavu lanat e 125 mg table t 4 06:00:36 TAKE 1 TABL ET BY MOUT H TWIC E A DAY FOR 5 DAYS 12/18 aborted Not Available Not availab le 0 Not Available Meghan [facility] 12/18/2024 15:00:32 benzo natat e 200 mg capsu le 4 05:15:43 12/18 aborted Not Available Not availab le 0 Not Available [facility] 12/18/2024 15:00:38 cyclo benza eliud 10 mg table t 4 15:35:07 12/18 aborted Not Available Not availab le 0 Not Available [facility] 12/18/2024 15:00:44 ibupr ofen 600 mg table t 4 15:35:07 12/18 aborted Not Available Not availab le 0 Not Available [facility] 12/18/2024 15:00:50 melox icam 15 mg table t 4 11:52:05 12/18 aborted Not Available Not availab le 0 Not Available Meghan [facility] 12/18/2024 15:00:53 omepr azole 20 mg capsu le,de layed relea se 4 07:05:43 12/18 aborted Not Available Not availab le 0 Not Available Meghan [facility] 12/18/2024 15:00:57 sumat ripta n 50 mg table t 4 05:45:44 12/18 aborted Not Available Not availab le 0 Not Available Meghan [facility] 12/18/2024 15:01:00 aceta minop hen 500 mg table t 4 14:54:40 Take 2 tabl ets 3 time s a day by oral rout e. 12/18 aborted Instability of right shoulder joint Not availab le 0 Not Available Not Available [facility] 12/18/2024 15:05:21 diclo fenac 1 % [...] le 1 Not Available Not Available [facility] 12/18/2024 15:05:22 napro xen 500 mg table t 4 10:34:05 Take 1 tabl et twic e a day by oral rout e as need ed for 30 days . 12/18 aborted Follow-up orthopedic assessment Not availab le 1 Not Available Not Available [facility] 12/18/2024 15:05:22 trama dol 37.5 mg-ac etami nophe n 325 mg table t 5 13:13:04 1-2 TABL ETS BY TRA Fuentes EVER Y 6 HOUR S NEED ED PART IAL FILL UPON DB ENT REQU EST active Not Available Not availab le 0 Not Available Not Available [facility] 12/27/2024 13:13:04 predn isone 20 mg table t 4 05:15:43 01/22 aborted Not Available Not availab le 0 Not Available HANNAH [place] [facility] [place] [facility] 01/22/2025 15:28:38 doxyc yclin e hycla te 100 mg table t 5 06:11:52 01/22 aborted Not Available Not availab le 0 Not Available HANNAH MA [place] - [place] [facility] 01/22/2025 15:28:40 propr anolo [...] 0 Not Available Feli Montana [place] - [place] [facility] 05/31/2025 09:29:50 azirma macarioyc in 250 mg table t 10:11:28 TAKE 2 TABL ETS BY MOUT H TODA Y, THEN TAKE 1 TABL ET KEN Y FOR 4 DAYS DIRE CTED 05/31 aborted Not Available Not availab le 0 Not Available Feli Montana [place] - [place] [facility] 05/31/2025 09:30:02 ketoc onazo [...] Updated DateTime 10/15/2025 157.48 cm 22.9 kg/m2 62611.05 g Esvin Grace MA - [place] [facility] 10/15/2025 14:23:47 Social History [...] Disease N Heart Trouble N Heart Attack ([place]) N Gastrointestinal Disease N Cholesterol N Diabetes [...] ICD10 Code Diagnosis IMO Codes Diagnosis Note [id number] [place] [address] 10/15/2025 14:18:54 10/26/2025 14:10:03 Pain of right shoulder joint [id number] M25.511 [id number] Health Concerns Section Related Observation LastModified by [...] right shoulder ordered and obtained at [facility] today were reviewed during the visit. [...] CT of the right shoulder performed at [facility] 10/07/2024 independently reviewed by me on [facility] [...] AC joints, acromion, proximal humerus. 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 [facility] speech recognition assembly inspector software was used to create portions of this document. An attempt at proofreading has been made to minimize errors. Please call for corrections. Vandana Padgett MD [address] [place], [place] [address] [address], [place], [address], [facility] 10/15/2025 16:20:56 Care Team Name Role Member ID Specialty Address Phone SABRA SHARMA Primary Care Provider [phone] [facility] [place]
== END 2025-11-24 09:37 | disposition home or self-care (01) ==
LOC: HO.HOSX 09:36
PROVIDERS: PCP Internal Medicine; Visit Provider Orthopaedic Surgery
DX: S60.212A Contusion of left wrist, initial encounter (principal); S60.222A Contusion of left hand, initial encounter; W54.0XXA Bitten by dog, initial encounter; Y93.9 Activity, unspecified; Y92.039 Unspecified place in apartment as the place of occurrence of the external cause; Y99.9 Unspecified external cause status
CPT/HCPCS: 73110

== ENCOUNTER → 2025-11-24 10:19 | Outpatient (BNV) | payer BC, MEDICAID, SELFPAY | PROVIDERS: PCP Internal Medicine; Visit Provider Radiology Diagnostic Radiology | DX: M85.642 Other cyst of bone, left hand (principal); M19.032 Primary osteoarthritis, left wrist | CPT/HCPCS: 73110 ==